=== PATIENT | male | born 1950 | race Caucasian/White ===

== ENCOUNTER → 2021-08-24 | Outpatient (REF) | payer SELFPAY ==
[2021-08-24 09:00] LABS: Absolute Neutrophil Count 2.8 X10^3/uL (2.0-7.7); Basophil# 0.05 X10^3/uL; Basophil% 1.1 % (0-1); Eosinophil# 0.19 X10^3/uL; Eosinophils% 4.1 % (0-5); Hematocrit 24.1 % (40-54); Hemoglobin 7.2 g/dL (13.0-16.5); Lymphocyte % 14.9 % (19-41); Mean Corp Hgb Conc 29.9 g/dL (32-36); Mean Corpuscular Hgb 29.4 pg (27.0-32.0); Mean Corpuscular Volume 98.4 fL (80-94); Mean Platelet Vol. 10.1 fl (6.2-12.0); Monocyte% 19.2 % (0-10); NRBC Flagged by Analyzer 0 % (0-5); Neutrophil # 2.83 X10^3/uL (2.7-7.7); Neutrophil % 60.3 % (47-70); POSITIVE MORPHOLOGY YES; Platelet Count 256 K/mm3 (150-450); RBC Distribution Width CV 18.1 % (11.6-14.6); RBC Distribution Width SD 65.3 fl (35.1-43.9); Red Blood Count 2.45 M/mm3 (4.6-6.2); White Blood Count 4.7 K/mm3 (4.4-11.0)
[2021-08-24 09:02] LABS: Differential Indicated SCAN CRITERIA MET
[2021-08-24 09:22] LABS: Anisocytosis RARE; Differential Comment SCANNED
[2021-08-24 09:41] LABS: Anion Gap 6 (5-15); BUN 25 mg/dL (7-18); BUN/Creat Ratio 12.5 RATIO (10-20); Calcium,Total 8.6 mg/dL (8.5-10.1); Chloride 98 mmol/L (98-107); EST Glomerular Filtration Rate 35 mL/min (>60); Est Glom Filt Rate - Afr Amer 43 mL/min (>60); Glucose 129 mg/dL (74-106); Potassium 3.7 mmol/L (3.5-5.1); Sodium Level 137 mmol/L (136-145)
== END | disposition home or self-care (01) ==
LOC: OLS.SW1020 05:33
PROVIDERS: Visit Provider Internal Medicine
DX: E11.9 Type 2 diabetes mellitus without complications (principal); D64.9 Anemia, unspecified
CPT/HCPCS: 36415; 80048; 85025

== ENCOUNTER 2021-08-28 23:49 | Inpatient (IN) | payer MEDICARE, SELFPAY ==
[2021-08-28 23:50] VITALS: BP 116/58; PULSE 105; RESP 31; TEMP 36.8; O2SAT 97; BMI 25.9
[2021-08-29] VITALS (45 sets, daily range): BP systolic 77–142; BP diastolic 46–73; PULSE 77–127; RESP 12–40; TEMP 35.8–37; O2SAT 89–100; BMI 24.5
--- NOTE | 2021-08-29 00:09 | EKG12_ITS ---
Test Reason : sob Blood Pressure : / mmHG Vent. Rate : 104 BPM Atrial Rate : 104 BPM P-R Int : 208 ms QRS Dur : 092 ms QT Int : 296 ms P-R-T Axes : 046 009 034 degrees QTc Int : 389 ms Sinus tachycardia Nonspecific T wave abnormality Abnormal ECG Confirmed by YOVANY ALVAREZ, MARIO ([id number]), editor index RADHAMES MARIE ([id number]) on 08/31/2021 9:06:13 AM Referred By: Confirmed By:MARIO PEDROZA MD
--- NOTE | 2021-08-29 00:13 | EX.ED.DYSGE1 ---
HPI History of Present Illness Chief Complaint: Shortness of Breath Informant: patient Onset/Context/Timing Onset: Days Context: Gradual Onset Current Severity: Moderate Maximum Severity: Moderate Narrative Narrative: Patient present secondary to increased shortness of breath over the past 2 days. He normally wears 4 L of oxygen at baseline. He does not know what his underlying condition is that requires him to wear oxygen. He missed his dialysis treatment on Monday secondary to diarrhea. He only had a partial treatment yesterday. He states he does make some urine but very little. [facility] Medical History Anemia Anxiety Chronic kidney disease Chronic respiratory failure Cirrhosis Depression Dialysis patient Gout Hx of gastroesophageal reflux (GERD) Liver cell carcinoma Paroxysmal A-fib Type 2 diabetes mellitus Home Medications Therapeutic M 1 tab NG DAILY supplement 08/29/21 [History Last Taken Unknown] albuterol sulfate 0.63 mg/3 mL solution for nebulization 0.63 mg inhalation Q4H PRN Shortness Of Breath 08/29/21 [History Last Taken Unknown] alendronate 70 mg tablet 70 mg PO QWEEK supplement 08/29/21 [History Last Taken Unknown] allopurinol 100 mg tablet 100 mg PO DAILY gout 08/29/21 [History Last Taken Unknown] amiodarone 200 mg tablet 200 mg PO DAILY heart rate 08/29/21 [History Last Taken Unknown] apixaban 5 mg tablet 5 mg PO BID blood thinner 08/29/21 [History Last Taken Unknown] aripiprazole 2 mg tablet 2 mg PO DAILY depression 08/29/21 [History Last Taken Unknown] cetirizine 10 mg tablet 10 mg PO DAILY allergies 08/29/21 [History Last Taken Unknown] cholecalciferol (vitamin D3) 25 mcg (1,000 unit) tablet 25 mcg PO DAILY supplement 08/29/21 [History Last Taken Unknown] darbepoetin ismael in polysorbat 60 mcg/mL in polysorbate injection 60 mcg subcut QWEEK renal failure 08/29/21 [History Last Taken Unknown] entecavir 0.5 mg tablet 0.5 mg PO QWEEK liver failure 08/29/21 [History Last Taken Unknown] lactulose 20 gram/30 mL oral solution 20 g PO BID liver failure 08/29/21 [History Last Taken Unknown] melatonin 3 mg tablet 3 mg PO QHS sleep 08/29/21 [History Last Taken Unknown] metoprolol succinate 25 mg tablet,extended release 24 hr 25 mg PO DAILY heart rate/blood pressure 08/29/21 [History Last Taken Unknown] midodrine 10 mg tablet mg low BP 08/29/21 [History Last Taken Unknown] oxycodone 5 mg capsule 5 mg PO Q6H PRN Pain 08/29/21 [History Last Taken Unknown] pantoprazole 40 mg tablet,delayed release 40 mg PO QHS protonix 08/29/21 [History Last Taken Unknown] sodium chloride 0.65 % nasal spray aerosol ([place] Nasal) 2 spray intranasal Q4H PRN Dry Nasal Passages 08/29/21 [History Last Taken Unknown] tacrolimus 1 mg capsule, immediate-release 1 mg PO Q12H liver failure 08/29/21 [History Last Taken Unknown] timolol maleate 0.5 % once daily eye drops 1 drp EACH EYE DAILY glaucoma 08/29/21 [History Last Taken Unknown] ursodiol 300 mg capsule 300 mg PO TID liver failure 08/29/21 [History Last Taken Unknown] vitamin E 268 mg (400 unit) capsule 268 mg PO DAILY supplement 08/29/21 [History Last Taken Unknown] Allergy/AdvReac Type Severity Reaction Status Date / Time hydrocodone Allergy PT UNSURE Verified 08/29/21 00:07 OF REACTION levofloxacin [From Levaquin] Allergy PT UNSURE Verified 08/29/21 00:07 OF REACTION prochlorperazine Allergy Hives Verified 08/29/21 00:07 [From Compazine] aspirin AdvReac Other Verified 08/29/21 00:07 codeine AdvReac Nausea Verified 08/29/21 00:07 ibuprofen AdvReac Other Verified 08/29/21 00:07 Family History (Updated 08/29/21 @ 02:[address] Nick Rinaldi MD) Other CVA (cerebral vascular accident) Surgical History Liver transplant recipient Social History (Updated 08/29/21 @ 02:[address] Nick Rinaldi MD) Smoking Status: Former smoker ROS ROS ED Constitutional Constitutional ED: Denies chills or fever(s) Eyes Eyes: Denies change in vision or discharge from eye(s) ENT ENT ED: Denies discharge from eye(s), rhinorrhea or sore throat Cardiovascular Cardiovascular: Denies chest pain or palpitations Respiratory/Chest Respiratory/Chest: Reports dyspnea Gastrointestinal Gastrointestinal: Denies abdominal pain, diarrhea, nausea or vomiting Musculoskeletal Musculoskeletal: Reports back pain; Denies extremity pain Integumentary Denies Abrasions or rash Neurologic Neurologic: Denies headache(s) Allergic/Immunologic Allergic/Immunologic ED: Denies lip swelling or urticaria EXAM Physical Exam Const Vital Signs: 08/28/21 23:50 08/29/21 00:18 08/29/21 00:27 Temperature 98.3 F 96.8 F L Temperature Source Oral Temporal Pulse Rate 105 H 104 H Respiratory Rate 31 H 29 H Respiratory Effort Short of Breath Respiratory Depth Shallow Respiratory Pattern Tachypnea Blood Pressure 116/58 L 104/57 L Blood Pressure Mean 77 72 Pulse Ox 97 94 Oxygen Delivery Method Nasal Cannula Nasal Cannula Bi-pap Oxygen Flow Rate (L/min) 6 6 Fraction of Inspired Oxygen (FIO2) 08/29/21 00:15 08/29/21 00:31 08/29/21 01:18 Temperature 96.9 F L Temperature Source Temporal Pulse Rate 106 H 111 H Respiratory Rate 26 H 25 H Respiratory Effort Respiratory Depth Respiratory Pattern Tachypnea Blood Pressure 99/57 L Blood Pressure Mean 71 Pulse Ox 96 93 Oxygen Delivery Method Bi-pap Oxygen Flow Rate (L/min) Fraction of Inspired Oxygen (FIO2) 40 40 08/29/21 01:48 08/29/21 02:00 08/29/21 02:00 Temperature 96.8 F L 96.9 F L Temperature Source Temporal Temporal Pulse Rate 127 H 105 H 105 H Respiratory Rate 30 H 28 H 28 H Respiratory Effort Respiratory Depth Respiratory Pattern Blood Pressure 110/56 L 110/56 L Blood Pressure Mean 74 74 Pulse Ox 96 100 100 Oxygen Delivery Method Bi-pap Room Air Oxygen Flow Rate (L/min) Fraction of Inspired Oxygen (FIO2) 40 Positive well nourished and well developed General Appearance ED: well developed HEENT Reports normocephalic and head/scalp atraumatic Eyes PERRL and EOMs intact bilaterally Neck supple Chest Wall inspection of chest normal and palpation of chest normal Resp Resp Narrative: Patient tachypneic with crackles bilaterally. Cardio regular rate and regular rhythm GI non-tender Palpation: soft Back/Spine Negative for no CVA tenderness Extremity Extremity Narrative: 3+ pitting edema bilateral lower extremities. Neuro oriented x3 and no sensory deficits noted Sensorium / Orientation: alert Motor Exam: Negative for strength 5/5 throughout Psych mental status grossly normal Skin no rashes or lesions noted MDM MDM MDM Narrative Medical decision making narrative: Patient was placed on BiPAP due to work of breathing. Chest x-ray, lab work obtained. Patient given 40 mg of IV Lasix. Lab Data Attestation: I reviewed the patient's lab results. Labs: Laboratory Results - last 24 hr 08/29/21 08/29/21 08/29/21 00:15 00:15 00:15 WBC 22.0 H RBC 2.90 L Hgb 8.6 L Hct 28.4 L MCV 97.9 H MCH 29.7 MCHC 30.3 L RDW Std Deviation 66.5 H RDW Coeff of Neetu 18.5 H Plt Count 396 MPV 10.2 Immature Gran % (Auto) 1.300 H Neut % (Auto) 87.5 H Lymph % (Auto) 2.3 L [place] % (Auto) 7.5 Eos % (Auto) 1.0 Baso % (Auto) 0.4 Absolute Neuts (auto) 19.3 H Absolute Lymphs (auto) 0.50 L Nucleated RBC % 0 Differential Comment SCANNED Diff Path Review May foll Hypochromasia 2+ Anisocytosis 1+ Sodium 132 L Potassium 3.3 L Chloride 94 L Carbon Dioxide 30.0 Anion Gap 8 BUN 54 H Creatinine 2.82 H Estim Creat Clear Calc 23.58 Est GFR (MDRD) Af Amer 29 L Est GFR (MDRD) Non-Af 24 L BUN/Creatinine Ratio 19.1 Glucose 170 H Calcium 9.3 B-Natriuretic Peptide 1099.8 H Radiography Chest X-Ray - ED: 1 View, Read by ED Physician and CHF Diagnostic Testing: Clinical Impression(s) from Imaging Studies Chest X-Ray 08/29/21 00:30 IMPRESSION: Bilateral airspace disease, concerning for multifocal infection. Small pleural effusions, right greater than left. Electronically Signed: Latrell Pina MD at 1:14 EDT , EKG Initial EKG: Attestation: I personally reviewed and interpreted this EKG as follows: Interpretation: Sinus Tachycardia (Sinus tachycardia at 104 with underlying artifact. No significant ischemia appreciated.) Treatment and Re-Evaluation Narrative: On repeat evaluation patient breathing much more comfortably. His FiO2 is at 40%. Lung sounds are improved on auscultation. Lab work does show elevated white count at 22 with 87% neutrophils. Hemoglobin is 8.6. Chemistry studies reveal a sodium of 132, potassium 3.3, BUN 54, creatinine 2.82. BNP is elevated at 1100. Clinically I do not believe the patient has pneumonia. He has missed dialysis and sounds wet on auscultation. I believe the elevated white count is a stress response from his dyspnea. Patient will require admission as he is currently on BiPAP. We will speak with hospitalist. Discharge Plan Dx/Rx/DC Orders Clinical Impression: CHF (congestive heart failure), Respiratory failure, Chronic kidney failure, Dependence on renal dialysis Disposition Disposition: Acute Care Hospital [facility] Discharge Date/Time: 08/29/21 03:37
--- NOTE | 2021-08-29 00:18 | NURSING ---
PICC in placed to right chest on arrival to ED
[2021-08-29 00:21] LABS: Absolute Neutrophil Count 19.3 X10^3/uL (2.0-7.7); Basophil# 0.09 X10^3/uL; Basophil% 0.4 % (0-1); Eosinophil# 0.22 X10^3/uL; Hematocrit 28.4 % (40-54); Hemoglobin 8.6 g/dL (13.0-16.5); Lymphocyte % 2.3 % (19-41); Mean Corp Hgb Conc 30.3 g/dL (32-36); Mean Corpuscular Hgb 29.7 pg (27.0-32.0); Mean Corpuscular Volume 97.9 fL (80-94); Mean Platelet Vol. 10.2 fl (6.2-12.0); Monocyte# 1.66 X10^3/uL; Monocyte% 7.5 % (0-10); NRBC Flagged by Analyzer 0 % (0-5); Neutrophil # 19.25 X10^3/uL (2.7-7.7); Neutrophil % 87.5 % (47-70); POSITIVE DIFFERENTIAL YES; POSITIVE MORPHOLOGY YES; Platelet Count 396 K/mm3 (150-450); RBC Distribution Width CV 18.5 % (11.6-14.6); RBC Distribution Width SD 66.5 fl (35.1-43.9)
[2021-08-29] MEDS: Furosemide 40 MG/4 ML Vial IV (00:23)
[2021-08-29 00:24] LABS: Differential Indicated SCAN CRITERIA MET
--- NOTE | 2021-08-29 00:30 | RAD_ITS ---
INDICATION: sob EXAMINATION/TECHNIQUE: X-RAY - XR Chest 1 View COMPARISON: None. FINDINGS: LINES/DEVICES: Right IJ central venous catheter terminating in the distal SVC. Enteric tube terminates below the diaphragm beyond the field of view. LUNGS: Bilateral hazy and patchy opacities worst at the right lung base. Small pleural effusions, right greater than left. No pneumothorax. MEDIASTINUM AND CARDIOVASCULAR STRUCTURES: Cardiac silhouette not enlarged. Central airways and mediastinal contour are unremarkable. BONES AND SOFT TISSUES: Unremarkable. RAD/Chest 1 View (Portable) IMPRESSION: Bilateral airspace disease, concerning for multifocal infection. Small pleural effusions, right greater than left. Electronically Signed: Latrell Pina MD at 1:14 EDT ,
[2021-08-29 00:38] LABS: Anion Gap 8 (5-15); BUN 54 mg/dL (7-18); BUN/Creat Ratio 19.1 RATIO (10-20); Calcium,Total 9.3 mg/dL (8.5-10.1); Chloride 94 mmol/L (98-107); Creatinine, Serum 2.82 mg/dL (0.70-1.30); EST Glomerular Filtration Rate 24 mL/min (>60); Est Glom Filt Rate - Afr Amer 29 mL/min (>60); Estimated Creatinine Clearance 23.58 ml/min; Glucose 170 mg/dL (74-106); Potassium 3.3 mmol/L (3.5-5.1); Sodium Level 132 mmol/L (136-145)
[2021-08-29 00:54] LABS: BNP,B-Type NATRIURETIC PEPTIDE 1099.8 pg/mL (0-100)
[2021-08-29 00:55] LABS: Anisocytosis 1+; Differential Comment SCANNED; Hypochromasia 2+
--- NOTE | 2021-08-29 02:33 | PCM.HP.STD ---
HPI - General General Date of Admission: 08/29/21 Date of Service: 08/29/21 Chief Complaint: Shortness of breath HPI Narrative MUSA LOPEZ, is a 71 M with a significant history of liver transplantation; end-stage renal disease on dialysis who presents emergency department with 2-day history of progressively worsening shortness of breath. Patient get dialysis Monday and Monday. The Monday before presentation patient missed dialysis because of diarrhea. And he had a partial treatment of dialysis the Monday before presentation. Associated with his symptoms is swelling of his legs [facility] Medical History Anemia Anxiety Chronic kidney disease Chronic respiratory failure Cirrhosis Depression Dialysis patient Gout Hx of gastroesophageal reflux (GERD) Liver cell carcinoma Paroxysmal A-fib Type 2 diabetes mellitus Home Medications Therapeutic M 1 tab NG DAILY supplement 08/29/21 [History Last Taken Unknown] albuterol sulfate 0.63 mg/3 mL solution for nebulization 0.63 mg inhalation Q4H PRN Shortness Of Breath 08/29/21 [History Last Taken Unknown] alendronate 70 mg tablet 70 mg PO QWEEK supplement 08/29/21 [History Last Taken Unknown] allopurinol 100 mg tablet 100 mg PO DAILY gout 08/29/21 [History Last Taken Unknown] amiodarone 200 mg tablet 200 mg PO DAILY heart rate 08/29/21 [History Last Taken Unknown] apixaban 5 mg tablet 5 mg PO BID blood thinner 08/29/21 [History Last Taken Unknown] aripiprazole 2 mg tablet 2 mg PO DAILY depression 08/29/21 [History Last Taken Unknown] cetirizine 10 mg tablet 10 mg PO DAILY allergies 08/29/21 [History Last Taken Unknown] cholecalciferol (vitamin D3) 25 mcg (1,000 unit) tablet 25 mcg PO DAILY supplement 08/29/21 [History Last Taken Unknown] darbepoetin ismael in polysorbat 60 mcg/mL in polysorbate injection 60 mcg subcut QWEEK renal failure 08/29/21 [History Last Taken Unknown] entecavir 0.5 mg tablet 0.5 mg PO QWEEK liver failure 08/29/21 [History Last Taken Unknown] lactulose 20 gram/30 mL oral solution 20 g PO BID liver failure 08/29/21 [History Last Taken Unknown] melatonin 3 mg tablet 3 mg PO QHS sleep 08/29/21 [History Last Taken Unknown] metoprolol succinate 25 mg tablet,extended release 24 hr 25 mg PO DAILY heart rate/blood pressure 08/29/21 [History Last Taken Unknown] midodrine 10 mg tablet mg low BP 08/29/21 [History Last Taken Unknown] oxycodone 5 mg capsule 5 mg PO Q6H PRN Pain 08/29/21 [History Last Taken Unknown] pantoprazole 40 mg tablet,delayed release 40 mg PO QHS protonix 08/29/21 [History Last Taken Unknown] sodium chloride 0.65 % nasal spray aerosol ([place] Nasal) 2 spray intranasal Q4H PRN Dry Nasal Passages 08/29/21 [History Last Taken Unknown] tacrolimus 1 mg capsule, immediate-release 1 mg PO Q12H liver failure 08/29/21 [History Last Taken Unknown] timolol maleate 0.5 % once daily eye drops 1 drp EACH EYE DAILY glaucoma 08/29/21 [History Last Taken Unknown] ursodiol 300 mg capsule 300 mg PO TID liver failure 08/29/21 [History Last Taken Unknown] vitamin E 268 mg (400 unit) capsule 268 mg PO DAILY supplement 08/29/21 [History Last Taken Unknown] Allergy/AdvReac Type Severity Reaction Status Date / Time hydrocodone Allergy PT UNSURE Verified 08/29/21 00:07 OF REACTION levofloxacin [From Levaquin] Allergy PT UNSURE Verified 08/29/21 00:07 OF REACTION prochlorperazine Allergy Hives Verified 08/29/21 00:07 [From Compazine] aspirin AdvReac Other Verified 08/29/21 00:07 codeine AdvReac Nausea Verified 08/29/21 00:07 ibuprofen AdvReac Other Verified 08/29/21 00:07 Family History (Updated 08/29/21 @ 02:[address] Nick Rinaldi MD) Other CVA (cerebral vascular accident) Surgical History Liver transplant recipient Social History (Updated 08/29/21 @ 02:[address] Nick Rinaldi MD) Smoking Status: Former smoker ROS ROS Narrative Pertinent positives and pertinent negatives as noted in HPI. All other systems were reviewed and are negative. Review of Systems ROS Unobtainable: other Details: Patient was on BiPAP at the time of examination and complete review of system could not be obtained secondary to patient being on BiPAP. Vital Signs Vital Signs Vital Signs: 08/28/21 23:50 08/29/21 00:18 08/29/21 00:27 Temperature 98.3 F 96.8 F L Temperature Source Oral Temporal Pulse Rate 105 H 104 H Respiratory Rate 31 H 29 H Respiratory Effort Short of Breath Respiratory Depth Shallow Respiratory Pattern Tachypnea Blood Pressure 116/58 L 104/57 L Blood Pressure Mean 77 72 Pulse Ox 97 94 Oxygen Delivery Method Nasal Cannula Nasal Cannula Bi-pap Oxygen Flow Rate (L/min) 6 6 Fraction of Inspired Oxygen (FIO2) 08/29/21 00:15 08/29/21 00:31 08/29/21 01:18 Temperature 96.9 F L Temperature Source Temporal Pulse Rate 106 H 111 H Respiratory Rate 26 H 25 H Respiratory Effort Respiratory Depth Respiratory Pattern Tachypnea Blood Pressure 99/57 L Blood Pressure Mean 71 Pulse Ox 96 93 Oxygen Delivery Method Bi-pap Oxygen Flow Rate (L/min) Fraction of Inspired Oxygen (FIO2) 40 40 08/29/21 01:48 Temperature Temperature Source Pulse Rate 127 H Respiratory Rate 30 H Respiratory Effort Respiratory Depth Respiratory Pattern Blood Pressure Blood Pressure Mean Pulse Ox 96 Oxygen Delivery Method Oxygen Flow Rate (L/min) Fraction of Inspired Oxygen (FIO2) 40 Weight Weight: 77.2 kg Body Mass Index (BMI) 25.9 Physical Exam Narrative Physical exam: General: Cachectic. Head: Normocephalic, atraumatic, no tenderness Eyes: Vision is grossly intact. EOMI ENT: Peg tube in nostrils. No trauma, moist mucous membranes, no rhinorrhea Neck: Nontender, full range of motion, no spinal tenderness, deformities, step-off CVS: Tachycardia. S1-S2 present. No murmur, gallop or rub. Respiratory : Rales throughout chest wall nontender, no wheezing Abdomen: Soft, nontender, nondistended, normal bowel sounds, no masses : Deferred Back: Nontender, no CVA tenderness, no midline spinal tenderness, deformities, step-offs Extremities: Edema of left upper extremity. Edema bilateral lower legs. Skin: Normal color, no trauma, abrasions Neuro: Alert, oriented, cranial nerves II through XII grossly intact. Psychiatry: Normal mood. Normal affect. Not depressed. Not anxious. Results Lab / Micro Data Result Diagrams: 08/29/21 05:05 08/29/21 05:05 Labs: Laboratory Results - last 24 hr 08/29/21 00:15: WBC 22.0 H, RBC 2.90 L, Hgb 8.6 L, Hct 28.4 L, MCV 97.9 H, MCH 29.7, MCHC 30.3 L, RDW Std Deviation 66.5 H, RDW Coeff of Neetu 18.5 H, Plt Count 396, MPV 10.2, Immature Gran % (Auto) 1.300 H, Neut % (Auto) 87.5 H, Lymph % (Auto) 2.3 L, [place] % (Auto) 7.5, Eos % (Auto) 1.0, Baso % (Auto) 0.4, Absolute Neuts (auto) 19.3 H, Absolute Lymphs (auto) 0.50 L, Nucleated RBC % 0, Differential Comment SCANNED, Diff Path Review May foll, Hypochromasia 2+, Anisocytosis 1+ 08/29/21 00:15: Sodium 132 L, Potassium 3.3 L, Chloride 94 L, Carbon Dioxide 30.0, Anion Gap 8, BUN 54 H, Creatinine 2.82 H, Estim Creat Clear Calc 23.58, Est GFR (MDRD) Af Amer 29 L, Est GFR (MDRD) Non-Af 24 L, BUN/Creatinine Ratio 19.1, Glucose 170 H, Calcium 9.3 08/29/21 00:15: B-Natriuretic Peptide 1099.8 H Radiology Impression Chest X-Ray 08/29/21 00:30 IMPRESSION: Bilateral airspace disease, concerning for multifocal infection. Small pleural effusions, right greater than left. Electronically Signed: Latrell Pina MD at 1:14 EDT , Assessment & Plan Assessment/Plan (1) Fluid overload: PLAN: Plan Fluid overload. Unclear whether patient has CHF. Unlikely fluid overload from missing dialysis. Chest x-ray visualized showed multifocal opacities. Fluid restriction. On BiPAP at emergency department and continued. N.p.o. while on BiPAP. Matteo wrap to bilateral legs elevate bilateral legs. We will get an echocardiogram. Nephrology consult Leukocytosis White count of 22.0. Likely reactive. Trend. DVT prophylaxis Subcutaneous heparin ordered. Charges/Coding Visit Charges Inpatient E&M: 24841 Init Hosp L3
--- NOTE | 2021-08-29 04:02 | ECHOD_ITS ---
Reason For Study: SOB Procedure This was a 2D Doppler, Color Flow transthoracic echocardiogram. Exam performed portable in ICU/CCU. Left Ventricle Normal LV size. Moderate eccentric left ventricular hypertrophy. Left ventricular systolic function is normal. The estimated ejection fraction is 60 %. No regional wall motion abnormalities noted. Right Ventricle Normal RV size. Normal systolic function. Atria Normal left atrium. Normal right atrium. Mitral Valve Bileaflet diffuse mitral valve thickening. Mild (1+) eccentric mitral valve insufficiency. Tricuspid Valve Normal tricuspid valve. Mild (1+) tricuspid valve insufficiency. Pulmonary artery systolic pressure is 38 mmHg. Aortic Valve Trisinus/trileaflet aortic valve. Mild focal aortic valve calcification. Pulmonic Valve Normal pulmonic valve. Great Vessels Normal aortic root. The pulmonary artery is normal size. Inferior vena cava collapse with respiration. Pericardium/Pleural No pericardial effusion. MMode/2D Measurements & Calculations LVIDd: 4.7 cm IVSd: 1.5 cm Ao root diam: 3.4 cm LVIDs: 2.4 cm LVPWd: 0.86 cm RVDd: 3.7 cm FS: 49.1 % LAV(MOD-bp): 52.0 ml LA A4 area: 16.5 cm2 LA dimension(2D): 4.2 cm LAV(MOD-bp) Indexed: 27.2 ml/m2 LAV(MOD-sp2): 64.9 ml LAV(MOD-sp4): 34.6 ml RA A4 area: 15.2 cm2 Doppler Measurements & Calculations MV E max kristina: 105.7 cm/sec Ao V2 max: 186.2 cm/sec LV V1 max: 134.7 cm/sec Ao max P.1 mmHg LV V1 max P.3 mmHg Ao V2 mean: 121.5 cm/sec LV V1 mean P.8 mmHg Ao mean P.9 mmHg LV V1 mean: 91.3 cm/sec Ao V2 VTI: 29.5 cm LV V1 VTI: 22.4 cm PA V2 max: 117.3 cm/sec TR max kristina: 293.7 cm/sec TR max P.6 mmHg ECHO/Echo Complete Interpretation Summary Normal LV size. Left ventricular systolic function is normal. Moderate eccentric left ventricular hypertrophy. The estimated ejection fraction is 60 %. Mild (1+) eccentric mitral valve insufficiency. Pulmonary artery systolic pressure is 38 mmHg. Ordering Physician: Nick Rinaldi Referring Physician: Sb Umaña Performed By: Nadja Shirley RDCS
[2021-08-29 05:40] LABS: Absolute Lymphocyte Count 0.82 X10^3/uL (0.83-4.51); Absolute Neutrophil Count 16.8 X10^3/uL (2.0-7.7); Basophil# 0.06 X10^3/uL; Basophil% 0.3 % (0-1); Eosinophil# 0.07 X10^3/uL; Eosinophils% 0.4 % (0-5); Hemoglobin 8.9 g/dL (13.0-16.5); Lymphocyte # 0.82 X10^3/ul (0.83-4.51); Lymphocyte % 4.3 % (19-41); Mean Corp Hgb Conc 30.7 g/dL (32-36); Mean Corpuscular Hgb 30.1 pg (27.0-32.0); Mean Platelet Vol. 10.3 fl (6.2-12.0); Monocyte# 1.19 X10^3/uL; Monocyte% 6.2 % (0-10); NRBC Flagged by Analyzer 0 % (0-5); Neutrophil # 16.78 X10^3/uL (2.7-7.7); Neutrophil % 87.5 % (47-70); POSITIVE MORPHOLOGY YES; Platelet Count 359 K/mm3 (150-450); RBC Distribution Width CV 18.5 % (11.6-14.6); RBC Distribution Width SD 65.9 fl (35.1-43.9); Red Blood Count 2.96 M/mm3 (4.6-6.2); White Blood Count 19.2 K/mm3 (4.4-11.0)
[2021-08-29 05:59] LABS: Differential Indicated SCAN CRITERIA MET
[2021-08-29 06:05] LABS: Anion Gap 10 (5-15); BUN 53 mg/dL (7-18); BUN/Creat Ratio 17.9 RATIO (10-20); Calcium,Total 9.3 mg/dL (8.5-10.1); Chloride 93 mmol/L (98-107); Creatinine, Serum 2.96 mg/dL (0.70-1.30); EST Glomerular Filtration Rate 22 mL/min (>60); Est Glom Filt Rate - Afr Amer 27 mL/min (>60); Estimated Creatinine Clearance 22.47 ml/min; Glucose 126 mg/dL (74-106); Potassium 3.5 mmol/L (3.5-5.1); Sodium Level 133 mmol/L (136-145)
[2021-08-29] MEDS: CLARIFY ORDER NOTE (06:14)
[2021-08-29 06:27] LABS: Anisocytosis 1+; Hypochromasia 2+; Microcytosis 1+
[2021-08-29 06:28] LABS: Differential Comment SCANNED
--- NOTE | 2021-08-29 07:07 | NURSING ---
Contacted Jarrod at [facility] to clarify Fosamax and Aranesp Fosamax is 1x weekly on Fridays Aranesp is 1x weekly on Wednesdays Pharmacy updated home med list updated
--- NOTE | 2021-08-29 07:44 | PCM.PN.BLA ---
Progress Note Presenting with fluid overload likely secondary to missing dialysis on Monday due to diarrhea as well as having a short run on Monday. Currently on BiPAP and will consult nephrology for dialysis today. Lung sounds demonstrate rales consistent with volume overload. He also has findings consistent for multifocal pneumonia especially in the setting of an elevated white count to 22 on admission therefore also start him on antibiotics and obtain a sputum culture.
[2021-08-29 08:10] LABS: Allen Test Positive; Base Excess 1 mmol/L (-2 to +2); Bicarbonate 27.3 mmol/L (22-26); Blood Gas Specimen Type ART; FI02 50; O2 Delivery Device BiPAP; PEEP 7; PO2 58 mmHG (75-100); SITE R Radial; SO2 87 % (95-99); Total Carbon Dioxide 29 mmol/L; pCO2 52.8 mmHg (35-45); pH 7.32 (7.35-7.45)
--- NOTE | 2021-08-29 08:30 | NURSING ---
Report called to Donn MONSALVE. Transferring patient to ICU bed 7.
--- NOTE | 2021-08-29 09:12 | VDLE_ITS ---
Reason For Study: swelling RIGHT LEFT GSV is normal. GSV is normal. CFV is compressible, spontaneous, phasic, CFV is compressible, spontaneous, phasic, competent and demonstrates normal competent, and demonstrates normal augmentation. augmentation. FV is compressible, spontaneous, phasic, FV is compressible, spontaneous, phasic, competent and demonstrates normal competent and demonstrates normal augmentation. augmentation. POP V is compressible, spontaneous, phasic, POP V is compressible, spontaneous, phasic, competent and demonstrates normal competent and demonstrates normal augmentation. augmentation. T/P Trunk is compressible. T/P Trunk is compressible. PTV is compressible. PTV is compressible. RT PerV is compressible. LT PerV is compressible. Procedure This is a venous duplex using B-mode, color flow and spectral Doppler. Exam performed portable in ICU/CCU. The exam was diagnostic. Difficult study due to edema. A preliminary report was called and/or faxed to the pt's RN. VL/Venous Duplex US - Marcel Extrem Interpretation Summary Deep veins of the right lower extremity are patent and compressible segmentally . There is no evidence of right lower extremity deep vein thrombosis. The right great sapheno us vein appears patent and compressible segmentally. Deep veins of the left lower extremity are patent and compressible segmentally. There is no evidence of left lower extremity deep vein thrombosis. The left great saphenous vein paras ears patent and compressible segmentally. Ordering Physician: Kanu Chan Performed By: Myke Monahan RVT
--- NOTE | 2021-08-29 09:12 | AAVD_ITS ---
Reason For Study: edema Aorta Measurements Aorta Doppler Measurements Proximal aorta measures1.32 x 1.22cm. in cross- Peak systolic flow velocities within the proximal sectional axis. aorta measure 32.5 cm/sec. Proximal aorta measures1.35cm. in longitudinal Peak systolic flow velocities within the mid aorta axis. measure 38.1 cm/sec. Mid aorta measures1.36 x 1.48cm. in cross- Peak systolic flow velocities within the distal sectional axis. aorta measure 28.2 cm/sec. Mid aorta measures1.45cm. in longitudinal axis. Distal aorta measures1.39 x 1.16cm. in cross- sectional axis. Distal aorta measures1.26cm. in longitudinal axis. Left Iliac Artery Left iliac artery measures .87 x .71 cm. in the cross-sectional axis. Left iliac artery measures .72 cm. in the longitudinal axis. Peak systolic velocity in the left iliac artery measures 117.6 cm/sec. Right Iliac Artery Right iliac artery measures .77 x .74 cm. in the cross-sectional axis. Right iliac artery measures .81 cm. in the longitudinal axis. Peak systolic velocity in the right iliac artery measures 126.4 cm/sec. Procedure Aorta IVC Iliac vasculature or bypass grafts [id number]. The exam was diagnostic. Exam performed portable in ICU/CCU. Difficult study due to edema. VL/Abd Aortic/IVC Duplex scan Interpretation Summary Abdominal aorta patent, normal caliber with normal velocities Bilateral iliac arteries patent, normal caliber with normal velocities Ordering Physician: Kanu Chan Performed By: Myke Monahan RVT
--- NOTE | 2021-08-29 09:12 | VDUE_ITS ---
Reason For Study: swelling Left Proximal Left jugular vein is spontaneous, widely patent, phasic, with no intraluminal echogenicity noted. Left subclavian vein is spontaneous, widely patent, phasic, with no intraluminal echogenicity noted. Left Arm Left axillary vein is spontaneous, patent, phasic, competent, compressible and demonstrates augmentation. Left brachial vein is compressible. Left cephalic vein is compressible. Left basilic vein is compressible. Left Lower Arm Left radial vein is compressible. Left ulnar vein is compressible. Prelim to the pt's RN. VL/Venous Duplex US, Unilateral Interpretation Summary Deep veins of the left upper extremity are patent and compressible segmentally. There is no evidence of deep vein thrombosis. There is no evidence of left upper extremity deep vein thrombosis. Ordering Physician: Kanu Chan Performed By: Myke Monahan RVT ?
--- NOTE | 2021-08-29 09:17 | AVDS_ITS ---
Reason For Study: evaluate fistula LEFT [place] artery 331.6/65.1 cm/s. Vol flow 1920 ml/min. Prox Anast 433.3/125.6 cm/s. Vol flow 4855 ml/min. Prox Fistula 120.8/30.1 cm/s. Vol flow 2511 ml/min. Mid fistula 31.9/8.4 cm/s. Vol flow 3321 ml/min. Dist fistula 42.4/27.6 cm/s. Vol flow 584.4 ml/min. Outflow 56.4/36.3 cm/s. Vol flow 7333.3 ml/min. VL/AV Fistula/Dialysis Graft Scan Interpretation Summary Patent left brachio-cephalic fistula with normal velocities and satisfactory fl ow volumes. Mid segment of fistula enlarged to 28 mm Ordering Physician: Kanu Chan Performed By: Myke Monahan RVT
--- NOTE | 2021-08-29 09:42 | CON.PCM.CC_ITS ---
Assessment & Plan Assessment/Plan (1) CHF (congestive heart failure): (2) Fluid overload: (3) Respiratory failure: (4) History of liver transplant: PLAN: On tacrolimus, Entecavir PLAN: Plan RECOMMENDATIONS: 1. Vascular work-up as ordered 2. Dialysis with fluid removal if possible 3. Agree with empiric antibiotics pending cultures 4. Possible need for dialysis line versus vascular interventions 5. BiPAP breaks as tolerated. Continue BiPAP with sleep 6. Continue immunosuppression 7. Obtain echocardiogram IMPRESSIONS: 1. Acute on chronic hypoxic respiratory failure secondary to probable CHF Patient with a history of end-stage renal disease with poor dialysis for the last week. Clinical suspicion for fluid overload leading to current condition. Unclear if patient has a concomitant infectious etiology, but is on immunosuppression. Agree with antibiotics for now. Will attempt hemodialysis. If not successful, may need to have a temporary hemodialysis line placed. Would continue with BiPAP with sleep until significant volume is removed. Could attempt BiPAP breaks while awake following 1 hemodialysis session. Nephrology has been consulted. 2. End-stage renal disease Patient does have a thrill in the fistula of interest. Unclear if patient has other vascular abnormalities leading to complications. Vascular surgery will be consulted. Work-up has been initiated for areas of edema. We will hold on systemic anticoagulation for now. If dialysis is unsuccessful, may need to have a temporary dialysis line placed while work-up and interventions can be completed 3. Congestive heart failure Unclear baseline cardiac function. Records can be requested. We will obtain an echocardiogram for comparison. Patient likely has an element of diastolic dysfunction at a minimum. Diuretics are of marginal effects given problem #2. High clinical suspicion for concomitant peripheral vascular disease. 4. History of liver transplant/gallop/paroxysmal A. fib/diabetes mellitus/anemia/anxiety Complicates care, management, recovery and prognosis. Continue immunosuppression. Patient may need sliding scale insulin. Patient appears to be tolerating BiPAP well at this time. Would not recommend benzodiazepines as this could worsen respiratory failure. TIME: 37 minutes critical care time spent addressing patient's acute hypoxic respiratory failure, end-stage renal disease, CHF, review of all data and collaboration with care team HPI Consult Data Date of Consult: 08/29/21 HPI Narrative Reason for Consultation: Respiratory failure HPI Narrative: MUSA LOPEZ is a 71 M, with past medical history listed below, who presents to [facility] on 08/29/2021 secondary progressive shortness of breath over the previous 2 days. Patient reportedly is on 4 L nasal cannula at baseline and [facility]. Patient reportedly had missed dialysis on Monday secondary to diarrhea and had only a partial dialysis on Monday secondary to access issues. Patient reportedly had stated significant worsening in edema over this course of time. Patient reportedly was hospitalized a week ago at [facility]. In the ER, patient was afebrile, but tachycardic at 105 bpm. Patient was requiring 6 L/min to maintain saturations initially, but then was transitioned to BiPAP. Laboratory data showed a white blood cell count of 22, hemoglobin of 8.6 and platelets of 396. Potassium was slightly low at 3.3 and creatinine was elevated at 2.82. BNP was elevated at almost 1100. Chest x-ray showed bilateral airspace disease with right greater than left effusion and fluffy infiltrates. Patient was admitted to the floor on BiPAP therapy, but subse quently had to come to the intensive care unit secondary to progressive hypoxia. An ABG was obtained showing adequate ventilation, but increased AA gradient. Since being in the intensive care unit, pressures have been increased. Patient is now up to 60% FiO2 and saturations have been doing okay. Patient states the pressure is difficult, but overall feels it is tolerable. Patient states he has been on dialysis since 2016. Patient is not reporting any history of previous issues with this fistula. Patient does report that he would be intubated if necessary. Patient does have a history of a liver transplant, but reports he has been compliant with therapy. 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 Patient is not aware of any recent fever, chills, nausea or vomiting. Patient has had diarrhea recently but denied any melena or hematochezia. Somewhat limited secondary to BiPAP, but review of systems otherwise negative from a constitutional, HEENT, respiratory, cardiovascular, GI, genitourinary, musculoskeletal, skin, neurologic, psychiatric and hematologic system unless stated above. [facility] Medical History Anemia Anxiety Chronic kidney disease Chronic respiratory failure Cirrhosis Depression Dialysis patient Gout Hx of gastroesophageal reflux (GERD) Liver cell carcinoma Paroxysmal A-fib Type 2 diabetes mellitus Home Medications Therapeutic M 1 tab NG DAILY supplement 08/29/21 [History Last Taken Unknown] albuterol sulfate 0.63 mg/3 mL solution for nebulization 0.63 mg inhalation Q4H PRN Shortness Of Breath 08/29/21 [History Last Taken Unknown] alendronate 70 mg tablet 70 mg PO QWEEK supplement 08/29/21 [History Last Taken Unknown] allopurinol 100 mg tablet 100 mg PO DAILY gout 08/29/21 [History Last Taken Unk nown] amiodarone 200 mg tablet 200 mg PO DAILY heart rate 08/29/21 [History Last Taken Unknown] apixaban 5 mg tablet 5 mg PO BID blood thinner 08/29/21 [History Last Taken Unknown] aripiprazole 2 mg tablet 2 mg PO DAILY depression 08/29/21 [History Last Taken Unknown] cetirizine 10 mg tablet 10 mg PO DAILY allergies 08/29/21 [History Last Taken Unknown] cholecalciferol (vitamin D3) 25 mcg (1,000 unit) tablet 25 mcg PO DAILY supplement 08/29/21 [History Last Taken Unknown] darbepoetin ismael in polysorbat 60 mcg/mL in polysorbate injection 60 mcg subcut QWEEK renal failure 08/29/21 [History Last Taken Unknown] entecavir 0.5 mg tablet 0.5 mg PO QWEEK liver failure 08/29/21 [History Last Taken Unknown] lactulose 20 gram/30 mL oral solution 20 g PO BID liver failure 08/29/21 [History Last Taken Unknown] melatonin 3 mg tablet 3 mg PO QHS sleep 08/29/21 [History Last Taken Unknown] metoprolol succinate 25 mg tablet,extended release 24 hr 25 mg PO DAILY heart rate/blood pressure 08/29/21 [History Last Taken Unknown] midodrine 10 mg tablet mg low BP 08/29/21 [History Last Taken Unknown] oxycodone 5 mg capsule 5 mg PO Q6H PRN Pain 08/29/21 [History Last Taken Unknown] pantoprazole 40 mg tablet,delayed release 40 mg PO QHS protonix 08/29/21 [History Last Taken Unknown] sodium chloride 0.65 % nasal spray aerosol ([place] Nasal) 2 spray intranasal Q4H PRN Dry Nasal Passages 08/29/21 [History Last Taken Unknown] tacrolimus 1 mg capsule, immediate-release 1 mg PO Q12H liver failure 08/29/21 [History Last Taken Unknown] timolol maleate 0.5 % once daily eye drops 1 drp EACH EYE DAILY glaucoma 08/29/21 [History Last Taken Unknown] ursodiol 300 mg capsule 300 mg PO TID liver failure 08/29/21 [History Last Taken Unknown] vitamin E 268 mg (400 unit) capsule 268 mg PO DAILY supplement 08/29/21 [History Last Taken Unknown] Allergy/AdvReac Type Severity Reaction Status Date / Time hydrocodone Allergy PT UNSURE Verified 08/29/21 00:07 OF REACTION levofloxacin [From Levaquin] Allergy PT UNSURE Verified 08/29/21 00:07 OF REACTION prochlorperazine Allergy Hives Verified 08/29/21 00:07 [From Compazine] aspirin AdvReac Other Verified 08/29/21 00:07 codeine AdvReac Nausea Verified 08/29/21 00:07 ibuprofen AdvReac Other Verified 08/29/21 00:07 Family History Other CVA (cerebral vascular accident) Surgical History Liver transplant recipient Social History Smoking Status: Former smoker ROS ROS Narrative See HPI Physical Exam Const alert and oriented x3 Constitutional Narrative: Able to converse through BiPAP. Significant anasarca noted of the left upper, bilateral lower and thorax. HEENT normocephalic and head/scalp atraumatic HEENT Narrative: NG in place Eyes PERRL, EOMs intact bilaterally, conjunctivae normal and no scleral icterus Neck full ROM and no lymphadenopathy Resp Auscultation: rales and diminished lung sounds; Negative for rhonchi or wheezes Percussion: dullness Mid: right and Lower: right Cardio regular rhythm, S1 normal heart sound, S2 normal heart sound, no murmurs, no rub and no gallops Rate: tachycardic GI Inspection: abdominal distention Palpation: Negative for tender, guarding or rigid Extremity Extremity Narrative: Positive thrill General Extremity: edema Skin Skin Narrative: Dermal atrophy Neuro oriented x3, CN's II-XII intact bilaterally and moves all extremities Psych cooperative and affect normal Medical Records Data Attestation: I reviewed the patient's medical records Medical records narrative: Approximately 10 pages of documentation were reviewed from the [facility]. No documentation from [facility] is available for review. Patient is on chronic immunosuppression and appears to have been receiving it. I did contact Dr. Zarate with vascular surgery for recommendations on work-up for edema issues. Lab / Micro Data Attestation: I reviewed the patient's lab results. Result Diagrams: 08/29/21 05:05 08/29/21 05:05 Labs: Laboratory Results - last 24 hr 08/29/21 00:15: WBC 22.0 H, RBC 2.90 L, Hgb 8.6 L, Hct 28.4 L, MCV 97.9 H, MCH 29.7, MCHC 30.3 L, RDW Std Deviation 66.5 H, RDW Coeff of Neetu 18.5 H, Plt Count 396, MPV 10.2, Immature Gran % (Auto) 1.300 H, Neut % (Auto) 87.5 H, Lymph % (Auto) 2.3 L, [place] % (Auto) 7.5, Eos % (Auto) 1.0, Baso % (Auto) 0.4, Absolute Neuts (auto) 19.3 H, Absolute Lymphs (auto) 0.50 L, Nucleated RBC % 0, Differential Comment SCANNED, Diff Path Review May foll, Hypochromasia 2+, Anisocytosis 1+ 08/29/21 00:15: Sodium 132 L, Potassium 3.3 L, Chloride 94 L, Carbon Dioxide 30.0, Anion Gap 8, BUN 54 H, Creatinine 2.82 H, Estim Creat Clear Calc 23.58, Est GFR (MDRD) Af Amer 29 L, Est GFR (MDRD) Non-Af 24 L, BUN/Creatinine Ratio 19.1, Glucose 170 H, Calcium 9.3 08/29/21 00:15: B-Natriuretic Peptide 1099.8 H 08/29/21 05:05: WBC 19.2 H, RBC 2.96 L, Hgb 8.9 L, Hct 29.0 L, MCV 98.0 H, MCH 30.1, MCHC 30.7 L, RDW Std Deviation 65.9 H, RDW Coeff of [place]etu 18.5 H, Plt Count 359, MPV 10.3, Immature Gran % (Auto) 1.300 H, Neut % (Auto) 87.5 H, Lymph % (Auto) 4.3 L, [place] % (Auto) 6.2, Eos % (Auto) 0.4, Baso % (Auto) 0.3, Absolute Neuts (auto) 16.8 H, Absolute Lymphs (auto) 0.82 L, Nucleated RBC % 0, Differential Comment SCANNED, Hypochromasia 2+, Anisocytosis 1+, Microcytosis 1+ 08/29/21 05:05: Sodium 133 L, Potassium 3.5, Chloride 93 L, Carbon Dioxide 30.0, Anion Gap 10, BUN 53 H, Creatinine 2.96 H, Estim Creat Clear Calc 22.47, Est GFR (MDRD) Af Amer 27 L, Est GFR (MDRD) Non-Af 22 L, BUN/Creatinine Ratio 17.9, Glucose 126 H, Calcium 9.3 ABG Data ABG results: ABG 08/29/21 08:04 Specimen Type ART Sample Site R Radial pH 7.32 L Bicarbonate Actual 27.3 H Total CO2 29 Base Excess 1 O2 Saturation 87 L O2 % 50 ABG pCO2 52.8 H ABG pO2 58 L Rodrigo Test Positive O2 Delivery Device BiPAP POC PEEP 7 Attestation: I personally reviewed and interpreted this ABG as follows: (Pa rtially compensated respiratory acidosis with increased AA gradient) Rhythm Strip Rhythm Strip: Sinus Tach Rate: 104 Radiology Impression Chest X-Ray 08/29/21 00:30 IMPRESSION: Bilateral airspace disease, concerning for multifocal infection. Small pleural effusions, right greater than left. Electronically Signed: Latrell Pina MD at 1:14 EDT , Charges/Coding Procedures Hospitalists Procedures: [id number] Critial Care 1st Hr
[2021-08-29] MEDS: Ceftriaxone 1 GM/50 ML BAG IV (09:52)
[2021-08-29] MEDS: oxyCODONE 5 MG Tablet PO ×2 (12:17→21:46)
[2021-08-29] MEDS: Allopurinol 100 MG Tablet PO (16:41)
[2021-08-29] MEDS: Cholecalciferol (VIT D3) 25 MCG TABLET (1,000 UNITS) PO (16:41)
[2021-08-29] MEDS: Tacrolimus Anhydrous 1 MG Capsule PO ×2 (16:41→21:27)
[2021-08-29] MEDS: APIXABAN 5 MG TABLET PO ×2 (16:41→21:27)
[2021-08-29] MEDS: Ursodiol 250 MG Tablet PO (16:41)
[2021-08-29] MEDS: Loratadine 10 MG Tablet PO (16:41)
[2021-08-29] MEDS: ARIPiprazole 2 MG Tablet PO (16:42)
[2021-08-29] MEDS: Timolol 0.5% 5ML OPTH.BTL 1 DRP EACH EYE (16:43)
--- NOTE | 2021-08-29 16:48 | PCM.CONS.R ---
Assessment & Plan Assessment/Plan (1) CHF (congestive heart failure): (2) Dependence on renal dialysis: PLAN: ESRD on dialysis. As per records from [facility], etiology was tacrolimus nephrotoxicity. Currently has AV fistula. Apparently had issues with AV fistula at the skilled nursing. Seen on dialysis today. Since potassium levels are okay, plan for ultrafiltration only. We will be able to get out about 3 to 4 L. Blood pressure is borderline, systolic is low, diastolic is okay. On review of records from [facility], it seems this is a chronic problem. Received albumin with dialysis today for blood pressure support. HPI Consult Data Date of Consult: 08/29/21 HPI Narrative Reason for Consultation: ESRD HPI Narrative: MUSA LOPEZ, is a 71 M who presents to the hospital with complaints of shortness of breath. Nephrology consulted for ESRD. He was recently discharged from [facility]. Reviewed discharge summary. History of orthotopic liver transplant in 2010, hepatitis C, failed previous treatments, not sure if this was recently treated History of hepatitis B on Entecavir Admitted with COVID, diagnosed with long COVID, received steroids, convalescent plasma other medications. Retroperitoneal abscess, diagnosed on MRI, culture grew 3 different organisms, finished antibiotics S/p liver biopsy History of immunosuppression due to liver transplant Admitted to the hospital with shortness of breath. Found to have pulmonary edema on chest x-ray. Seen on dialysis today [facility] Medical History Anemia Anxiety Chronic kidney disease Chronic respiratory failure Cirrhosis Depression Dialysis patient Gout Hx of gastroesophageal reflux (GERD) Liver cell carcinoma Paroxysmal A-fib Type 2 diabetes mellitus Home Medications Therapeutic M 1 tab NG DAILY supplement 08/29/21 [History Last Taken Unknown] albuterol sulfate 0.63 mg/3 mL solution for nebulization 0.63 mg inhalation Q4H PRN Shortness Of Breath 08/29/21 [History Last Taken Unknown] alendronate 70 mg tablet 70 mg PO QWEEK supplement 08/29/21 [History Last Taken Unknown] allopurinol 100 mg tablet 100 mg PO DAILY gout 08/29/21 [History Last Taken Unknown] amiodarone 200 mg tablet 200 mg PO DAILY heart rate 08/29/21 [History Last Taken Unknown] apixaban 5 mg tablet 5 mg PO BID blood thinner 08/29/21 [History Last Taken Unknown] aripiprazole 2 mg tablet 2 mg PO DAILY depression 08/29/21 [History Last Taken Unknown] cetirizine 10 mg tablet 10 mg PO DAILY allergies 08/29/21 [History Last Taken Unknown] cholecalciferol (vitamin D3) 25 mcg (1,000 unit) tablet 25 mcg PO DAILY supplement 08/29/21 [History Last Taken Unknown] darbepoetin ismael in polysorbat 60 mcg/mL in polysorbate injection 60 mcg subcut QWEEK renal failure 08/29/21 [History Last Taken Unknown] entecavir 0.5 mg tablet 0.5 mg PO QWEEK liver failure 08/29/21 [History Last Taken Unknown] lactulose 20 gram/30 mL oral solution 20 g PO BID liver failure 08/29/21 [History Last Taken Unknown] melatonin 3 mg tablet 3 mg PO QHS sleep 08/29/21 [History Last Taken Unknown] metoprolol succinate 25 mg tablet,extended release 24 hr 25 mg PO DAILY heart rate/blood pressure 08/29/21 [History Last Taken Unknown] midodrine 10 mg tablet mg low BP 08/29/21 [History Last Taken Unknown] oxycodone 5 mg capsule 5 mg PO Q6H PRN Pain 08/29/21 [History Last Taken Unknown] pantoprazole 40 mg tablet,delayed release 40 mg PO QHS protonix 08/29/21 [History Last Taken Unknown] sodium chloride 0.65 % nasal spray aerosol ([place] Nasal) 2 spray intranasal Q4H PRN Dry Nasal Passages 08/29/21 [History Last Taken Unknown] tacrolimus 1 mg capsule, immediate-release 1 mg PO Q12H liver failure 08/29/21 [History Last Taken Unknown] timolol maleate 0.5 % once daily eye drops 1 drp EACH EYE DAILY glaucoma 08/29/21 [History Last Taken Unknown] ursodiol 300 mg capsule 300 mg PO TID liver failure 08/29/21 [History Last Taken Unknown] vitamin E 268 mg (400 unit) capsule 268 mg PO DAILY supplement 08/29/21 [History Last Taken Unknown] Allergy/AdvReac Type Severity Reaction Status Date / Time hydrocodone Allergy PT UNSURE Verified 08/29/21 00:07 OF REACTION levofloxacin [From Levaquin] Allergy PT UNSURE Verified 08/29/21 00:07 OF REACTION prochlorperazine Allergy Hives Verified 08/29/21 00:07 [From Compazine] aspirin AdvReac Other Verified 08/29/21 00:07 codeine AdvReac Nausea Verified 08/29/21 00:07 ibuprofen AdvReac Other Verified 08/29/21 00:07 Family History Other CVA (cerebral vascular accident) Surgical History Liver transplant recipient Social History Smoking Status: Former smoker ROS ROS Narrative Negative except above Physical Exam Narrative Alert awake oriented x 3 bipap no pallor no icterus no JVD s1s2 no murmurs lungs rales abdomen soft no organomegaly no edema no cyanosis Lab / Micro Data Result Diagrams: 08/29/21 05:05 08/29/21 05:05 Labs: Laboratory Results - last 24 hr 08/29/21 00:15: WBC 22.0 H, RBC 2.90 L, Hgb 8.6 L, Hct 28.4 L, MCV 97.9 H, MCH 29.7, MCHC 30.3 L, RDW Std Deviation 66.5 H, RDW Coeff of [place]etu 18.5 H, Plt Count 396, MPV 10.2, Immature Gran % (Auto) 1.300 H, Neut % (Auto) 87.5 H, Lymph % (Auto) 2.3 L, [place] % (Auto) 7.5, Eos % (Auto) 1.0, Baso % (Auto) 0.4, Absolute Neuts (auto) 19.3 H, Absolute Lymphs (auto) 0.50 L, Nucleated RBC % 0, Differential Comment SCANNED, Diff Path Review May foll, Hypochromasia 2+, Anisocytosis 1+ 08/29/21 00:15: Sodium 132 L, Potassium 3.3 L, Chloride 94 L, Carbon Dioxide 30.0, Anion Gap 8, BUN 54 H, Creatinine 2.82 H, Estim Creat Clear Calc 23.58, Est GFR (MDRD) Af Amer 29 L, Est GFR (MDRD) Non-Af 24 L, BUN/Creatinine Ratio 19.1, Glucose 170 H, Calcium 9.3 08/29/21 00:15: B-Natriuretic Peptide 1099.8 H 08/29/21 05:05: WBC 19.2 H, RBC 2.96 L, Hgb 8.9 L, Hct 29.0 L, MCV 98.0 H, MCH 30.1, MCHC 30.7 L, RDW Std Deviation 65.9 H, RDW Coeff of [place]u 18.5 H, Plt Count 359, MPV 10.3, Immature Gran % (Auto) 1.300 H, Neut % (Auto) 87.5 H, Lymph % (Auto) 4.3 L, [place] % (Auto) 6.2, Eos % (Auto) 0.4, Baso % (Auto) 0.3, Absolute Neuts (auto) 16.8 H, Absolute Lymphs (auto) 0.82 L, Nucleated RBC % 0, Differential Comment SCANNED, Hypochromasia 2+, Anisocytosis 1+, Microcytosis 1+ 08/29/21 05:05: Sodium 133 L, Potassium 3.5, Chloride 93 L, Carbon Dioxide 30.0, Anion Gap 10, BUN 53 H, Creatinine 2.96 H, Estim Creat Clear Calc 22.47, Est GFR (MDRD) Af Amer 27 L, Est GFR (MDRD) Non-Af 22 L, BUN/Creatinine Ratio 17.9, Glucose 126 H, Calcium 9.3 ABG Data ABG results: ABG 08/29/21 08:04 Specimen Type ART Sample Site R Radial pH 7.32 L Bicarbonate Actual 27.3 H Total CO2 29 Base Excess 1 O2 Saturation 87 L O2 % 50 ABG pCO2 52.8 H ABG pO2 58 L Rodrigo Test Positive O2 Delivery Device BiPAP POC PEEP 7 Rhythm Strip Rhythm Strip: Sinus Tach Rate: 104 Radiology Impression Chest X-Ray 08/29/21 00:30 IMPRESSION: Bilateral airspace disease, concerning for multifocal infection. Small pleural effusions, right greater than left. Electronically Signed: Latrell Pina MD at 1:14 EDT ,
[2021-08-29] MEDS: Nystatin Powder 15gm Bottle 1 APPLIC TOPICAL (21:28)
[2021-08-29] MEDS: MELATONIN 3 MG TABLET PO (21:28)
[2021-08-29] MEDS: Pantoprazole Sodium 40 MG Tablet PO (21:29)
[2021-08-30] VITALS (42 sets, daily range): BP systolic 90–123; BP diastolic 39–69; PULSE 79–97; RESP 12–87; TEMP 2.6–37; O2SAT 94–100
[2021-08-30 03:53] LABS: Absolute Lymphocyte Count 0.57 X10^3/uL (0.83-4.51); Absolute Neutrophil Count 12.9 X10^3/uL (2.0-7.7); Basophil# 0.04 X10^3/uL; Basophil% 0.3 % (0-1); Eosinophil# 0.01 X10^3/uL; Eosinophils% 0.1 % (0-5); Hematocrit 23.2 % (40-54); Hemoglobin 6.9 g/dL (13.0-16.5); Lymphocyte # 0.57 X10^3/ul (0.83-4.51); Lymphocyte % 3.8 % (19-41); Mean Corp Hgb Conc 29.7 g/dL (32-36); Mean Corpuscular Hgb 29.2 pg (27.0-32.0); Mean Corpuscular Volume 98.3 fL (80-94); Mean Platelet Vol. 9.9 fl (6.2-12.0); Monocyte# 1.27 X10^3/uL; Monocyte% 8.4 % (0-10); NRBC Flagged by Analyzer 0 % (0-5); Neutrophil # 12.88 X10^3/uL (2.7-7.7); Neutrophil % 85.6 % (47-70); POSITIVE DIFFERENTIAL YES; POSITIVE MORPHOLOGY YES; Platelet Count 274 K/mm3 (150-450); RBC Distribution Width CV 18.7 % (11.6-14.6); RBC Distribution Width SD 67.7 fl (35.1-43.9); Red Blood Count 2.36 M/mm3 (4.6-6.2)
[2021-08-30 03:55] LABS: Differential Indicated SCAN CRITERIA MET
[2021-08-30 04:10] LABS: Anion Gap 12 (5-15); BUN 59 mg/dL (7-18); BUN/Creat Ratio 19.3 RATIO (10-20); Calcium,Total 9.3 mg/dL (8.5-10.1); Chloride 92 mmol/L (98-107); Creatinine, Serum 3.06 mg/dL (0.70-1.30); EST Glomerular Filtration Rate 22 mL/min (>60); Est Glom Filt Rate - Afr Amer 26 mL/min (>60); Estimated Creatinine Clearance 21.73 ml/min; Glucose 61 mg/dL (74-106); Potassium 3.6 mmol/L (3.5-5.1); Sodium Level 132 mmol/L (136-145)
[2021-08-30 04:11] LABS: Anisocytosis 1+; Macrocytosis 1+
[2021-08-30 04:12] LABS: Polychromasia 1+
--- NOTE | 2021-08-30 06:12 | PCM.PN.INT ---
Assessment & Plan Assessment/Plan (1) Respiratory failure: PLAN: Plan RECOMMENDATIONS: 1. Restart home midodrine. Initiate Levophed this morning to maintain a mean arterial pressure at or above 65 mmHg. 2. Send type and screen. Plan to transfuse 2 units packed red blood cells. 3. Check stool occult blood. 4. Hold Eliquis. 5. Increase PPI therapy to twice daily. 6. Initiate broad-spectrum antimicrobials, pending infectious work-up. 7. Send blood cultures. 8. Obtain speech therapy evaluation. 9. Obtain KUB to confirm appropriate Corpak placement. IMPRESSIONS: 1. Acute on chronic hypoxemic respiratory failure Likely multifactorial in etiology. Although hypervolemia in the setting of missed dialysis sessions is likely the culprit, the patient just had an extensive hospitalization at [facility], during which time, he was identified as being high risk for aspiration. Therefore, an underlying pulmonary infectious process is also a distinct possibility. There has been interval improvement in his oxygenation status following dialysis yesterday. Plan to continue supplemental oxygen as needed for saturations greater than 90%. The patient is going to be started on empiric antimicrobials as well. He will need a speech therapy evaluation while admitted to the hospital. Nutritional support via his feeding tube will be considered once placement has been confirmed. Echocardiogram is still pending. Plan to obtain follow-up chest x-ray this morning to assess for interval improvement in the previously noted radiographic findings. 2. Distributive shock Unclear if the patient's current hemodynamic status is related to relative intravascular depletion with subsequent third spacing due to poor nutritional status and renal disease. Alternatively, I cannot definitively rule out an occult infectious etiology either. Therefore, the patient has been initiated on antimicrobials and blood cultures have been obtained. The patient just had an extensive hospitalization with multiple sources of infection identified and treated. Plan to continue Levophed to maintain a mean arterial pressure at or above 65 mmHg. I do suspect that the patient has a low baseline blood pressure, based off of prior nephrology documentation and the need for midodrine as an outpatient. 3. Anemia The patient has chronic anemia, which is worsened this morning, with a hemoglobin of 6.9 g/dL. Accordingly, will plan to type and cross the patient for 2 units of packed red blood cells, with tentative plans for them to be administered during dialysis today. Stool for occult blood will be checked. PPI therapy twice daily has been initiated. 4. End-stage renal disease on hemodialysis Nephrology is currently following to assist with hemodialysis needs. The patient routinely receives dialysis on a Monday, Monday, Monday schedule. 5. 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 The patient was apparently discharged from [facility] on lactulose, which may have led to excessive GI losses. 6. Recent prolonged hospitalization leading to debility/high aspiration risk status post Corpak placement The patient recently spent over 2 months at [facility] with a prolonged, complicated hospitalization. Ultimately, the patient was considered high risk for aspiration and a Corpak was placed. Recommend formal speech therapy evaluation while admitted to the hospital. Feeding tube can be utilized once appropriate position has been confirmed. 7. History of atrial fibrillation/diabetes mellitus Complicates care, management, recovery and prognosis. Hold Eliquis for now in light of worsening anemia. Initiate sliding scale insulin coverage, if needed. TIME: 42 minutes of critical care time, independent of procedures, was spent addressing the patient's acute on chronic hypoxemic respiratory failure, distributive shock, anemia, end-stage renal disease, review of all data and collaboration with the care team. Subjective Subjective The patient was seen and examined at the bedside this morning. Events from the last 24 hours have been reviewed. The patient is currently afebrile and maintaining appropriate oxygen saturations on 4 L/min via nasal cannula, which is the patient's baseline requirement. The patient was able to tolerate dialysis yesterday with 3 L of fluid removed. His blood pressures remain tenuous at best. However, according to nephrology documentation, the patient typically runs on the low side from a blood pressure perspective. The patient has numerous chronic medical issues including cirrhosis secondary to HCV status post failed HCV therapy, complicated by hepatocellular carcinoma, now status post liver transplant in January 2011 on chronic tacrolimus therapy. The patient has a remote history of organizing pneumonia, which was treated with steroids along with atrial fibrillation on Eliquis, end-stage renal disease on hemodialysis Monday, Monday, Monday, chronic anemia and type 2 diabetes mellitus. According to documentation, the patient was admitted to [facility] June 06 through August 21, 2021. He initially presented with COVID-pneumonia that was treated with steroid therapy. His hospital course was complicated by atrial fibrillation with RVR, ultimately requiring ICU admission. He also developed Klebsiella pneumonia and had to be treated with ceftriaxone. In addition, ERCP completed during that hospital stay revealed a biliary stricture that required stent placement. The patient also developed SBP according to documentation in July, which was treated as well with ceftriaxone. He was also found to have a retroperitoneal abscess on MRI in July, which is managed with IR drain placement. His cultures were positive for ESBL E. coli, Yaquelin and Enterococcus. The patient completed a treatment course of ertapenem, fluconazole and vancomycin. Swallow study performed on August 12 demonstrated that the patient was not safe for oral intake. Therefore, a Corpak was placed to facilitate tube feed administration. Objective Data Objective Data The patient's most recent lab work, culture data and imaging studies have all been personally reviewed. Vital Signs: Vital Signs Temp Pulse Resp BP Pulse Ox O2 Del Method O2 Flow Rate 97.9 F 90 19 H 98/47 L 100 High Flow 4 08/30/21 05:00 08/30/21 06:00 08/30/21 06:00 08/30/21 06:00 08/30/21 06:00 08/30/21 06:00 08/30/21 06:00 FiO2 60 08/29/21 19:00 Oxygen Flow Rate (L/min) 4 Oxygen Delivery Method High Flow Weight: 160 lb 14.999 oz Body Mass Index (BMI) 24.5 Intake & Output: Intake and Output for Last 24 Hours 08/28/21 08/29/21 08/30/21 23:59 23:59 23:59 Intake Total 625 / 725 100 / 100 Output Total 0 / 3000 3000 / 3000 Balance 625 / -2275 -2900 / -2900 Lab / Micro Data Attestation: I reviewed the patient's lab results. Result Diagrams: 08/31/21 03:30 08/31/21 03:30 Labs: Laboratory Results - last 24 hr 08/29/21 05:05: Differential Comment SCANNED, Hypochromasia 2+, Anisocytosis 1+, Microcytosis 1+ 08/30/21 03:45: WBC 15.0 H, RBC 2.36 L, Hgb 6.9 L, Hct 23.2 L, MCV 98.3 H, MCH 29.2, MCHC 29.7 L, RDW Std Deviation 67.7 H, RDW Coeff of Neetu 18.7 H, Plt Count 274, MPV 9.9, Immature Gran % (Auto) 1.800 H, Neut % (Auto) 85.6 H, Lymph % (Auto) 3.8 L, [place] % (Auto) 8.4, Eos % (Auto) 0.1, Baso % (Auto) 0.3, Absolute Neuts (auto) 12.9 H, Absolute Lymphs (auto) 0.57 L, Nucleated RBC % 0, Polychromasia 1+, Anisocytosis 1+, Macrocytosis 1+ 08/30/21 03:45: Sodium 132 L, Potassium 3.6, Chloride 92 L, Carbon Dioxide 28.0, Anion Gap 12, BUN 59 H, Creatinine 3.06 H, Estim Creat Clear Calc 21.73, Est GFR (MDRD) Af Amer 26 L, Est GFR (MDRD) Non-Af 22 L, BUN/Creatinine Ratio 19.3, Glucose 61 L, Calcium 9.3 ABG Data ABG results: ABG 08/29/21 08:04 Specimen Type ART Sample Site R Radial pH 7.32 L Bicarbonate Actual 27.3 H Total CO2 29 Base Excess 1 O2 Saturation 87 L O2 % 50 ABG pCO2 52.8 H ABG pO2 58 L Rodrigo Test Positive O2 Delivery Device BiPAP POC PEEP 7 Rhythm Strip Rhythm Strip: Sinus Tach Rate: 104 Physical Exam Const alert Constitutional Narrative: Chronically ill in appearance. General Appearance: cooperative HEENT normocephalic and head/scalp atraumatic HEENT Narrative: Corpak currently in place. Teeth and Gingiva: poor dentition Eyes PERRL and EOMs intact bilaterally Neck supple General: trachea midline Chest inspection of chest normal Resp Resp Narrative: Coarse rhonchi noted bilaterally. Effort and Inspection: tachypneic Cardio regular rate and regular rhythm GI soft to palpation and non-tender Inspection: abdominal distention Extremity General Extremity: edema; Negative for clubbing Skin no rashes or lesions noted Neuro CN's II-XII intact bilaterally and no focal motor deficits Psych Mood & Affect: flat affect Charges/Coding Procedures Hospitalists Procedures: 23078 Critial Care 1st Hr
--- NOTE | 2021-08-30 08:31 | RAD_ITS ---
STUDY: X-RAY - ABDOMEN/PELVIS REASON FOR EXAM: Male, 71 years old. Corpak position confirmation TECHNIQUE: Single AP view of the abdomen / pelvis. COMPARISON: None. FINDINGS: The tip of the feeding tube is in the third portion of the duodenum adjacent to the ligament of Treitz. RAD/Abdomen Single View (Portable) IMPRESSION: The tip of the feeding tube is in the third portion of the duodenum adjacent to the ligament of Treitz. Electronically Signed: Zackery Kent MD at 9:58 EDT ,
--- NOTE | 2021-08-30 09:30 | RAD_ITS ---
STUDY: X-RAY CHEST REASON FOR EXAM: Male, 71 years old. Respiratory Failure TECHNIQUE: Single AP portable view of the chest. COMPARISON: Comparison is made with prior study dated 08/29/2021. FINDINGS: EKG electrodes are seen. A right-sided central catheter seen with the tip at the junction of the superior vena cava and right atrium. A feeding tube is seen. Progressive bilateral alveolar infiltrates. Small bilateral pleural effusions. Normal size heart. Normal mediastinum and emma. Normal visualized pulmonary arteries. Normal visualized aortic arch and descending thoracic aorta. There are degenerative changes of the visualized thoracic spine. Normal visualized ribs, clavicles, and shoulders. There is no demonstrated abnormality of the visualized soft tissue structures of the upper abdomen. RAD/Chest 1 View (Portable) IMPRESSION: Progressive bilateral pulmonary infiltrates and small bilateral pleural effusions slightly more prominent on the right side. Electronically Signed: Zackery Kent MD at 9:59 EDT ,
[2021-08-30 09:47] LABS: AST(SGOT) 13 U/L (15-37); Alanine Aminotransfer ALT/SGPT 13 U/L (16-61); Albumin, Serum 1.9 g/dL (3.2-5.0); Alkaline Phosphatase 446 U/L (45-117); Bilirubin, Direct 0.23 mg/dL (0.00-0.30); Globulin 2.6 g/dL (2.2-4.2); Protein, Total 4.5 g/dL (6.4-8.2)
[2021-08-30 09:54] LABS: Lactic Acid 2.2 mmol/L (0.4-1.9)
[2021-08-30] MEDS: Midodrine HCl 5 MG Tablet 10 MG PO ×2 (10:38→16:53)
[2021-08-30] MEDS: Ursodiol 250 MG Tablet PO ×2 (10:39→16:53)
[2021-08-30] MEDS: Loratadine 10 MG Tablet PO (10:39)
[2021-08-30] MEDS: Allopurinol 100 MG Tablet PO (10:39)
[2021-08-30] MEDS: Amiodarone 200 MG Tablet PO (10:39)
[2021-08-30] MEDS: ARIPiprazole 2 MG Tablet PO (10:39)
[2021-08-30] MEDS: Cholecalciferol (VIT D3) 25 MCG TABLET (1,000 UNITS) PO (10:40)
[2021-08-30] MEDS: Tacrolimus Anhydrous 1 MG Capsule PO ×2 (10:40→21:09)
[2021-08-30] MEDS: Nystatin Powder 15gm Bottle 1 APPLIC TOPICAL ×2 (10:41→21:09)
[2021-08-30] MEDS: Timolol 0.5% 5ML OPTH.BTL 1 DRP EACH EYE (10:42)
--- NOTE | 2021-08-30 10:44 | EX.PCM.CON.S ---
Assessment & Plan Assessment/Plan (1) Chronic kidney failure: PLAN: -recent issues with completing HD; unclear if access issue or circuit hemodynamics -will attempt fistula first, if unsuccessful then place catheter -for most part fistula has worked well per patient even though some pulsatility; will get duplex to assess but unless recurrent difficulties would defer anything invasive at this time -LE venous duplex studies and IVC/iliac studies pending HPI Consult Data Date of Consult: 08/30/21 HPI Narrative HPI Narrative: MUSA LOPEZ, is a 71 M who presents from transitional care with a complex acute and chronic medical history. Prior history of ESRD on HD for several years, with Left brach-ceph fistula that has functioned well for 6 years. Also history of liver transplant unknown timing. He recently was admitted to outside facility for extended period of time for multiple issues including covid pneumonia, SBP, malnutrition, retroperitoneal abscess. His stay in the acute setting was very prolonged. He has been in the [facility] for unknown length of time but recently has had issues with using fistula for HD session, and either missed or had abbreviated runs for last 2 sessions. He presents with SOB, extensive edema including bilateral lower extremities, abdomen/flank to lower thorax, left upper extremity. Per patient limited ability to give history has some mild LUE edema, no prior DVT or IVC filters. [facility] Medical History Anemia Anxiety Chronic kidney disease Chronic respiratory failure Cirrhosis Depression Dialysis patient Gout Hx of gastroesophageal reflux (GERD) Liver cell carcinoma Paroxysmal A-fib Type 2 diabetes mellitus Home Medications Therapeutic M 1 tab NG DAILY supplement 08/29/21 [History Last Taken Unknown] albuterol sulfate 0.63 mg/3 mL solution for nebulization 0.63 mg inhalation Q4H PRN Shortness Of Breath 08/29/21 [History Last Taken Unknown] alendronate 70 mg tablet 70 mg PO QWEEK supplement 08/29/21 [History Last Taken Unknown] allopurinol 100 mg tablet 100 mg PO DAILY gout 08/29/21 [History Last Taken Unknown] amiodarone 200 mg tablet 200 mg PO DAILY heart rate 08/29/21 [History Last Taken Unknown] apixaban 5 mg tablet 5 mg PO BID blood thinner 08/29/21 [History Last Taken Unknown] aripiprazole 2 mg tablet 2 mg PO DAILY depression 08/29/21 [History Last Taken Unknown] cetirizine 10 mg tablet 10 mg PO DAILY allergies 08/29/21 [History Last Taken Unknown] cholecalciferol (vitamin D3) 25 mcg (1,000 unit) tablet 25 mcg PO DAILY supplement 08/29/21 [History Last Taken Unknown] darbepoetin ismael in polysorbat 60 mcg/mL in polysorbate injection 60 mcg subcut QWEEK renal failure 08/29/21 [History Last Taken Unknown] entecavir 0.5 mg tablet 0.5 mg PO QWEEK liver failure 08/29/21 [History Last Taken Unknown] lactulose 20 gram/30 mL oral solution 20 g PO BID liver failure 08/29/21 [History Last Taken Unknown] melatonin 3 mg tablet 3 mg PO QHS sleep 08/29/21 [History Last Taken Unknown] metoprolol succinate 25 mg tablet,extended release 24 hr 25 mg PO DAILY heart rate/blood pressure 08/29/21 [History Last Taken Unknown] midodrine 10 mg tablet mg low BP 08/29/21 [History Last Taken Unknown] oxycodone 5 mg capsule 5 mg PO Q6H PRN Pain 08/29/21 [History Last Taken Unknown] pantoprazole 40 mg tablet,delayed release 40 mg PO QHS protonix 08/29/21 [History Last Taken Unknown] sodium chloride 0.65 % nasal spray aerosol (Frank Nasal) 2 spray intranasal Q4H PRN Dry Nasal Passages 08/29/21 [History Last Taken Unknown] tacrolimus 1 mg capsule, immediate-release 1 mg PO Q12H liver failure 08/29/21 [History Last Taken Unknown] timolol maleate 0.5 % once daily eye drops 1 drp EACH EYE DAILY glaucoma 08/29/21 [History Last Taken Unknown] ursodiol 300 mg capsule 300 mg PO TID liver failure 08/29/21 [History Last Taken Unknown] vitamin E 268 mg (400 unit) capsule 268 mg PO DAILY supplement 08/29/21 [History Last Taken Unknown] Allergy/AdvReac Type Severity Reaction Status Date / Time hydrocodone Allergy PT UNSURE Verified 08/29/21 00:07 OF REACTION levofloxacin [From Levaquin] Allergy PT UNSURE Verified 08/29/21 00:07 OF REACTION prochlorperazine Allergy Hives Verified 08/29/21 00:07 [From Compazine] aspirin AdvReac Other Verified 08/29/21 00:07 codeine AdvReac Nausea Verified 08/29/21 00:07 ibuprofen AdvReac Other Verified 08/29/21 00:07 Family History Other CVA (cerebral vascular accident) Surgical History Liver transplant recipient Social History Smoking Status: Former smoker ROS Review of Systems ROS Unobtainable: due to mental status and other Details: on BIPAP, limited ability to communicate due to resp failure/fatigue Physical Exam Const General Appearance: ill appearing Positive for acutely and chronically and grossly edematous Orientation / Consciousness: awake Exam Limitations: physical limitations Resp Effort and Inspection: respiratory distress and uses accessory muscles Cardio Rate: regular rate Rhythm: regular rhythm Peripheral Pulses: brachial pulses present right and left (left brach-ceph avf, +thrill with some pulsation ) and radial pulses present; Negative for posterior tibial pulses present or dorsalis pedis pulses present GI Inspection: edema findings and abdominal distention Palpation: soft; Negative for tender Lab / Micro Data Result Diagrams: 08/30/21 03:45 08/30/21 03:45 Labs: Laboratory Results - last 24 hr 08/30/21 03:45: WBC 15.0 H, RBC 2.36 L, Hgb 6.9 L, Hct 23.2 L, MCV 98.3 H, MCH 29.2, MCHC 29.7 L, RDW Std Deviation 67.7 H, RDW Coeff of Neetu 18.7 H, Plt Count 274, MPV 9.9, Immature Gran % (Auto) 1.800 H, Neut % (Auto) 85.6 H, Lymph % (Auto) 3.8 L, [place] % (Auto) 8.4, Eos % (Auto) 0.1, Baso % (Auto) 0.3, Absolute Neuts (auto) 12.9 H, Absolute Lymphs (auto) 0.57 L, Nucleated RBC % 0, Polychromasia 1+, Anisocytosis 1+, Macrocytosis 1+ 08/30/21 03:45: Sodium 132 L, Potassium 3.6, Chloride 92 L, Carbon Dioxide 28.0, Anion Gap 12, BUN 59 H, Creatinine 3.06 H, Estim Creat Clear Calc 21.73, Est GFR (MDRD) Af Amer 26 L, Est GFR (MDRD) Non-Af 22 L, BUN/Creatinine Ratio 19.3, Glucose 61 L, Calcium 9.3 08/30/21 06:55: Blood Type AB POSITIVE, Antibody Screen NEGATIVE 08/30/21 06:55: Crossmatch See Detail 08/30/21 08:57: Total Bilirubin 0.50, Direct Bilirubin 0.23, AST 13 L, ALT 13 L, Alkaline Phosphatase 446 H, Total Protein 4.5 L, Albumin 1.9 L, Globulin 2.6 08/30/21 08:57: Lactic Acid 2.2 H* Rhythm Strip Rhythm Strip: Sinus Tach Rate: 104 Radiology Impression KUB X-Ray 08/30/21 08:31 IMPRESSION: The tip of the feeding tube is in the third portion of the duodenum adjacent to the ligament of Treitz. Electronically Signed: Zackery Kent MD at 9:58 EDT , Chest X-Ray 08/30/21 09:30 IMPRESSION: Progressive bilateral pulmonary infiltrates and small bilateral pleural effusions slightly more prominent on the right side. Electronically Signed: Zackery Kent MD at 9:59 EDT , Charges/Coding Visit Charges Inpatient E&M: 02024 Init Hosp L2
--- NOTE | 2021-08-30 11:06 | CASEMGMT ---
GRICEL DOSS reviewed chart and patient was admitted from [facility]. GRICEL DOSS called Rosalie in admissions at [facility]. Per Rosalie, patient was admitted from [facility] on 08/21/21. Patient was admitted on 06/06/21 to [facility] after being transferred from [facility]. Rosalie emailed this RN ROMARIO [facility] H&P and discharge summary. [facility] documents printed and placed on chart. GRICEL DOSS updated Dr. London regarding information received by [facility]. CM will continue to follow this patient and plan for a safe discharge when medically ready.
--- NOTE | 2021-08-30 11:48 | WOUNDNOTE ---
wound photo: left hand
--- NOTE | 2021-08-30 11:48 | WOUNDNOTE ---
wound photo: sacrum/lower back
--- NOTE | 2021-08-30 12:09 | PN.RENAL_ITS ---
Subjective Subjective Patient was started on Levophed this morning Hemoglobin is low getting 2 units of blood transfusion plan to be given with dialysis Objective Data Objective Data Vital Signs: Vital Signs Temp Pulse Resp BP Pulse Ox O2 Del Method O2 Flow Rate 97.1 F L 89 16 107/48 L 97 Nasal Cannula 4 08/30/21 12:00 08/30/21 12:00 08/30/21 12:00 08/30/21 12:00 08/30/21 12:00 08/30/21 12:00 08/30/21 12:00 FiO2 60 08/29/21 19:00 Oxygen Flow Rate (L/min) 4 Oxygen Delivery Method Nasal Cannula Weight: 69.2 kg Body Mass Index (BMI) 24.5 Intake & Output: Intake and Output for Last 24 Hours 08/28/21 08/29/21 08/30/21 23:59 23:59 23:59 Intake Total 625 / 725 313.20 / 313.20 Output Total 0 / 3000 3000 / 3000 Balance 625 / -2275 -2686.80 / -2686.80 Lab / Micro Data Attestation: I reviewed the patient's lab results. Result Diagrams: 08/30/21 03:45 08/30/21 03:45 Labs: Laboratory Results - last 24 hr 08/30/21 03:45: WBC 15.0 H, RBC 2.36 L, Hgb 6.9 L, Hct 23.2 L, MCV 98.3 H, MCH 29.2, MCHC 29.7 L, RDW Std Deviation 67.7 H, RDW Coeff of Neetu 18.7 H, Plt Count 274, MPV 9.9, Immature Gran % (Auto) 1.800 H, Neut % (Auto) 85.6 H, Lymph % (Auto) 3.8 L, [place] % (Auto) 8.4, Eos % (Auto) 0.1, Baso % (Auto) 0.3, Absolute Neuts (auto) 12.9 H, Absolute Lymphs (auto) 0.57 L, Nucleated RBC % 0, Polychromasia 1+, Anisocytosis 1+, Macrocytosis 1+ 08/30/21 03:45: Sodium 132 L, Potassium 3.6, Chloride 92 L, Carbon Dioxide 28.0, Anion Gap 12, BUN 59 H, Creatinine 3.06 H, Estim Creat Clear Calc 21.73, Est GFR (MDRD) Af Amer 26 L, Est GFR (MDRD) Non-Af 22 L, BUN/Creatinine Ratio 19.3, Gluc ose 61 L, Calcium 9.3 08/30/21 06:55: Blood Type AB POSITIVE, Antibody Screen NEGATIVE 08/30/21 06:55: Crossmatch See Detail 08/30/21 08:57: Total Bilirubin 0.50, Direct Bilirubin 0.23, AST 13 L, ALT 13 L, Alkaline Phosphatase 446 H, Total Protein 4.5 L, Albumin 1.9 L, Globulin 2.6 08/30/21 08:57: Lactic Acid 2.2 H* 08/30/21 11:40: Ammonia 33.0 H Radiography Diagnostic Testing: Radiology Impression Venous Doppler Study 08/29/21 09:12 Interpretation Summary Deep veins of the right lower extremity are patent and compressible segmentally. There is no evidence of right lower extremity deep vein thrombosis. The right great saphenous vein appears patent and compressible segmentally. Deep veins of the left lower extremity are patent and compressible segmentally. There is no evidence of left lower extremity deep vein thrombosis. The left great saphenous vein appears patent and compressible segmentally. Ordering Physician: Knau Chan Performed By: Myke Monahan RVT Venous Doppler Study 08/29/21 09:12 Interpretation Summary Deep veins of the left upper extremity are patent and compressible segmentally. There is no evidence of deep vein thrombosis. There is no evidence of left upper extremity deep vein thrombosis. Ordering Physician: Kanu Chan Performed By: Myke Monahan, RVT ? A/V Fistula Ultrasound 08/29/21 09:17 Interpretation Summary Patent left brachio-cephalic fistula with normal velocities and satisfactory flow volumes. Mid segment of fistula enlarged to 28 mm Ordering Physician: Kanu Chan Performed By: Myke Monahan, RVT X-Ray 08/30/21 08:31 IMPRESSION: The tip of the feeding tube is in the third portion of the duodenum adjacent to the ligament of Treitz. Electronically Signed: Zackery Kent MD at 9:58 EDT , Chest X-Ray 08/30/21 09:30 IMPRESSION: Progressive bilateral pulmonary infiltrates and small bilateral pleural effusions slightly more prominent on the right side. Electronically Signed: Zackery Kent MD at 9:59 EDT , Rhythm Strip Rhythm Strip: Sinus Tach Rate: 104 Physical Exam Narrative Patient is alert pleasant NG present S1-S2 regular Breath sounds are diminished Abdomen is obese Positive for dependent edema largely lower extremity extending to the abdomen Assessment & Plan Assessment/Plan (1) Chronic kidney failure: PLAN: -recent issues with completing HD; unclear if access issue or circuit hemodynamics -Patient had ultrafiltration yesterday of 3 L -Main issues remain volume overload -We will plan for hemodialysis today goals would be 2 to 3 L of ultrafiltration as tolerates -He will be getting blood transfusion with dialysis which will help -Continue with midodrine albumin Discussed with RN Thank you, please call [phone] with any concerns
[2021-08-30 13:15] LABS: Reflex Lactate? Y
[2021-08-30 13:17] LABS: M R Staph aureus DNA By PCR Negative (Negative); Probe Check PASS; Specimen Processing Control PASS
[2021-08-30 13:24] LABS: Pathologist Review Reviewed
--- NOTE | 2021-08-30 13:30 | PCM.RX.CS ---
Consult Pharmacy has been consulted to manage selected antiobiotic: Vancomycin Type of Consult: New start Labs: Sodium 132 mmol/L (136-145) L 08/30/21 03:45 Potassium 3.6 mmol/L (3.5-5.1) 08/30/21 03:45 Chloride 92 mmol/L (98-107) L 08/30/21 03:45 Carbon Dioxide 28.0 mmol/L (21.0-32.0) 08/30/21 03:45 Anion Gap 12 (5-15) 08/30/21 03:45 BUN 59 mg/dL (7-18) H 08/30/21 03:45 Creatinine 3.06 mg/dL (0.70-1.30) H 08/30/21 03:45 Est GFR (MDRD) Af Amer 26 mL/min (>60) L 08/30/21 03:45 Est GFR (MDRD) Non-Af 22 mL/min (>60) L 08/30/21 03:45 BUN/Creatinine Ratio 19.3 RATIO (10-20) 08/30/21 03:45 Glucose 61 mg/dL (74-106) L 08/30/21 03:45 Pharmacy Plan for Drug Dosing: NEW START IV VANCOMYCIN Consulting Physician: ZAHIRA Indication: PNEUMONIA Goal Trough: 15-20 MG/DL SrCr: 3.06 (HD PT) CrCl: HD PATIENT Comments: MWF HD schedule. Patient did have HD yesterday. Vancomycin Dose: Loading dose of 1750 mg ordered for this afternoon after HD. Patient is a MWF schedule. Next dose scheduled after next HD session (09/01). Will get a random level the morning of the following HD session (09/03) and then doses will be based on pre-HD levels per policy. Pending Level: 09/03 @ 0600 - RANDOM Pharmacy Service will continue to monitor and adjust dosing as required.
--- NOTE | 2021-08-30 14:30 | CASEMGMT ---
Social Work SW attempted to meet with pt to discuss discharge plan. Pt was sleeping and SW could not awake. Phone call placed to pt son Ronald who confirms that pt will return to [facility] when he is ready for discharge. Phone call to Rosalie at [facility] who confirms they can take pt back but pt will need a precert prior to returning. Precert not started at this time due to pt is not medically ready. Plan: [facility], precert will be needed but not started at this time. ANTONIO Gregg
--- NOTE | 2021-08-30 14:56 | CASEMGMT ---
Discharge [employer] Press Operator Larisa Patterson [employer] Second Press Operator faxed over an update to Rosalie at [facility]. Larisa Olivera Discharge [employer]
--- NOTE | 2021-08-30 16:47 | NURSING ---
first unit of blood being transfused at this time with dialysis
--- NOTE | 2021-08-30 17:29 | PN.HOSP_ITS ---
Subjective Subjective Patient was seen and examined today, I talked briefly with critical care about his care plan. Patient appears in no distress at the time my examination, he responded to simple questions appropriately. Patient is undergoing dialysis at this time. Objective Data Objective Data Vital Signs: Vital Signs Temp Pulse Resp BP Pulse Ox O2 Del Method O2 Flow Rate 96.9 F L 81 15 92/48 L 97 Nasal Cannula 4 08/30/21 16:46 08/30/21 16:46 08/30/21 16:46 08/30/21 16:46 08/30/21 16:46 08/30/21 16:46 08/30/21 16:46 FiO2 60 08/29/21 19:00 Oxygen Flow Rate (L/min) 4 Oxygen Delivery Method Nasal Cannula Weight: 69.2 kg Body Mass Index (BMI) 24.5 Intake & Output: Intake and Output for Last 24 Hours 08/28/21 08/29/21 08/30/21 23:59 23:59 23:59 Intake Total 625 / 725 425.80 / 425.80 Output Total 0 / 3000 3000 / 3000 Balance 625 / -2275 -2574.20 / -2574.20 Lab / Micro Data Result Diagrams: 08/30/21 03:45 08/30/21 03:45 Labs: Laboratory Results - last 24 hr 08/29/21 00:15: Diff Path Review Reviewed 08/30/21 03:45: WBC 15.0 H, RBC 2.36 L, Hgb 6.9 L, Hct 23.2 L, MCV 98.3 H, MCH 29.2, MCHC 29.7 L, RDW Std Deviation 67.7 H, RDW Coeff of Neetu 18.7 H, Plt Count 274, MPV 9.9, Immature Gran % (Auto) 1.800 H, Neut % (Auto) 85.6 H, Lymph % (Auto) 3.8 L, [place] % (Auto) 8.4, Eos % (Auto) 0.1, Baso % (Auto) 0.3, Absolute Neuts (auto) 12.9 H, Absolute Lymphs (auto) 0.57 L, Nucleated RBC % 0, Polychromasia 1+, Anisocytosis 1+, Macrocytosis 1+ 08/30/21 03:45: Sodium 132 L, Potassium 3.6, Chloride 92 L, Carbon Dioxide 28.0, Anion Gap 12, BUN 59 H, Creatinine 3.06 H, Estim Creat Clear Calc 21.73, Est GFR (MDRD) Af Amer 26 L, Est GFR (MDRD) Non-Af 22 L, BUN/Creatinine Ratio 19.3, Glucose 61 L, Calcium 9.3 08/30/21 06:55: Blood Type AB POSITIVE, Antibody Screen NEGATIVE 08/30/21 06:55: Crossmatch See Detail 08/30/21 08:57: Total Bilirubin 0.50, Direct Bilirubin 0.23, AST 13 L, ALT 13 L, Alkaline Phosphatase 446 H, Total Protein 4.5 L, Albumin 1.9 L, Globulin 2.6 08/30/21 08:57: Lactic Acid 2.2 H* 08/30/21 09:07: MRSA (PCR) Negative 08/30/21 11:40: Ammonia 33.0 H Radiography Diagnostic Testing: Radiology Impression Echocardiogram 08/29/21 04:02 Interpretation Summary Normal LV size. Left ventricular systolic function is normal. Moderate eccentric left ventricular hypertrophy. The estimated ejection fraction is 60 %. Mild (1+) eccentric mitral valve insufficiency. Pulmonary artery systolic pressure is 38 mmHg. Ordering Physician: Nick Rinaldi Referring Physician: Sb Umaña Performed By: Nadja Shirley RDCS Venous Doppler Study 08/29/21 09:12 Interpretation Summary Deep veins of the right lower extremity are patent and compressible segmentally. There is no evidence of right lower extremity deep vein thrombosis. The right great saphenous vein appears patent and compressible segmentally. Deep veins of the left lower extremity are patent and compressible segmentally. There is no evidence of left lower extremity deep vein thrombosis. The left great saphenous vein ap pears patent and compressible segmentally. Ordering Physician: Kanu Chan Performed By: Myke Monahan RVT Venous Doppler Study 08/29/21 09:12 Interpretation Summary Deep veins of the left upper extremity are patent and compressible segmentally. There is no evidence of deep vein thrombosis. There is no evidence of left upper extremity deep vein thrombosis. Ordering Physician: Kanu Chan Performed By: Myke Monahan RVT ? A/V Fistula Ultrasound 08/29/21 09:17 Interpretation Summary Patent left brachio-cephalic fistula with normal velocities and satisfactory flow volumes. Mid segment of fistula enlarged to 28 mm Ordering Physician: Kanu Chan Performed By: Hero, Myke, RVT X-Ray 08/30/21 08:31 IMPRESSION: The tip of the feeding tube is in the third portion of the duodenum adjacent to the ligament of Treitz. Electronically Signed: Zackery Kent MD at 9:58 EDT , Chest X-Ray 08/30/21 09:30 IMPRESSION: Progressive bilateral pulmonary infiltrates and small bilateral pleural effusions slightly more prominent on the right side. Electronically Signed: Zackery Kent MD at 9:59 EDT , Rhythm Strip Rhythm Strip: Sinus Tach Rate: 104 Physical Exam Const alert, oriented x3 and no apparent distress Constitutional Narrative: Patient appears older than stated age, patient has a nasal feeding tube in place General Appearance: cooperative, well kempt and well developed Orientation / Consciousness: awake, oriented to person, oriented to place and oriented to time HEENT normocephalic, head/scalp atraumatic and moist oral mucous membranes Eyes PERRL, EOMs intact bilaterally and conjunctivae normal Neck supple, no JVD and thyroid normal General: trachea midline Resp normal respiratory effort, no retractions, no use of accessory muscles and clear to auscultation bilaterally Auscultation: Negative for rales, rhonchi or wheezes Cardio S1 normal heart sound, S2 normal heart sound, no murmurs, no rub and no gallops GI soft to palpation and non-tender Extremity Extremity Narrative: Very lower extremity edema is noted bilaterally Skin no rashes or lesions noted General Skin Exam: no breakdown Neuro oriented x3, CN's II-XII intact bilaterally, no focal motor deficits and no sensory deficits noted Sensorium / Orientation: awake and alert Speech: speech normal Psych Psych Narrative: Patient's affect is flat Assessment & Plan Assessment/Plan (1) History of liver transplant: PLAN: Plan 1. Acute on chronic hypoxic respiratory failure-patient is currently on nasal cannula oxygen, he is being followed by critical care, patient will continue dialysis today #2 distributive shock-etiology unclear, could be secondary to relative intravascular depletion and third spacing, patient is currently on pressor age nts and midodrine. #3 chronic anemia-secondary to end-stage renal disease and chronic liver disease -patient will have packed red blood cells administered today #4 end-stage renal disease on hemodialysis-patient is being seen by nephrology #5 chronic debility secondary to prolonged recent hospitalization in [facility], patient will be seen by PT and OT, he will need to return to skilled [facility] facility at the conclusion of his hospitalization #6 paroxysmal atrial fibrillation-patient is on Eliquis and amiodarone #7 dysphagia-etiology unclear, patient is at high risk for aspiration, speech therapy will see the patient during his hospitalization #8 congestive heart failure with preserved ejection fraction-this was probably exacerbated by lack of dialysis recently at the long-term, patient is echocardiogram shows a normal EF with no significant valvular heart disease. Continue dialysis at this time. Overall prognosis for this patient is extremely guarded, patient has multiple severe medical problems. Charges/Coding Visit Charges Inpatient E&M: 31575 Subs Hosp L3
--- NOTE | 2021-08-30 20:09 | BH.SGPN.T2 ---
Behaviors/Verbalizations/Mental Status: [] Client Response/Progress/Benefit: [] Narrative Note: Hemodialysis x 3.5 hours, Net UF 2000ml after patient received 2 units PRBC. Tolerated dialysis well, VSS. Hemostasis achieved after HD needles pulled. Fistula site (LUE) WNL.
[2021-08-30] MEDS: MELATONIN 3 MG TABLET PO (21:10)
[2021-08-30] MEDS: oxyCODONE 5 MG Tablet PO (21:27)
[2021-08-30] MEDS: TITRATION PARAMETER CHANGE 1 EACH IV (23:22)
--- NOTE | 2021-08-30 23:23 | NURSING ---
Pt's BLE lotioned well, MILA wraps applied as per order. Pt nilam well. RT questioned pt's need for HS BiPAP,use recommended to help pt shift stationary bio-fluid in lungs.
[2021-08-31] VITALS (49 sets, daily range): BP systolic 85–123; BP diastolic 46–90; PULSE 80–104; RESP 11–23; TEMP 36.4–37.2; O2SAT 16–100
[2021-08-31] MEDS: oxyCODONE 5 MG Tablet PO ×2 (03:32→21:51)
[2021-08-31] MEDS: 0.9% Saline Lock 10 ML Syringe IV ×2 (03:33→12:38)
[2021-08-31 04:01] LABS: Absolute Lymphocyte Count 0.57 X10^3/uL (0.83-4.51); Absolute Neutrophil Count 14.2 X10^3/uL (2.0-7.7); Basophil# 0.05 X10^3/uL; Basophil% 0.3 % (0-1); Eosinophil# 0.05 X10^3/uL; Eosinophils% 0.3 % (0-5); Hematocrit 31.2 % (40-54); Hemoglobin 9.9 g/dL (13.0-16.5); Lymphocyte # 0.57 X10^3/ul (0.83-4.51); Lymphocyte % 3.4 % (19-41); Mean Corp Hgb Conc 31.7 g/dL (32-36); Mean Corpuscular Hgb 30.1 pg (27.0-32.0); Mean Corpuscular Volume 94.8 fL (80-94); Mean Platelet Vol. 9.8 fl (6.2-12.0); Monocyte# 1.54 X10^3/uL; Monocyte% 9.2 % (0-10); NRBC Flagged by Analyzer 0.1 % (0-5); Neutrophil % 85.1 % (47-70); POSITIVE DIFFERENTIAL YES; POSITIVE MORPHOLOGY YES; Platelet Count 288 K/mm3 (150-450); RBC Distribution Width CV 18.7 % (11.6-14.6); RBC Distribution Width SD 64.7 fl (35.1-43.9); Red Blood Count 3.29 M/mm3 (4.6-6.2); White Blood Count 16.7 K/mm3 (4.4-11.0)
[2021-08-31 04:04] LABS: Differential Indicated SCAN CRITERIA MET
[2021-08-31 04:07] LABS: Anion Gap 10 (5-15); BUN 35 mg/dL (7-18); BUN/Creat Ratio 18.1 RATIO (10-20); Calcium,Total 8.7 mg/dL (8.5-10.1); Chloride 97 mmol/L (98-107); Creatinine, Serum 1.93 mg/dL (0.70-1.30); EST Glomerular Filtration Rate 37 mL/min (>60); Est Glom Filt Rate - Afr Amer 45 mL/min (>60); Estimated Creatinine Clearance 34.46 ml/min; Glucose 64 mg/dL (74-106); Potassium 3.3 mmol/L (3.5-5.1); Sodium Level 136 mmol/L (136-145)
[2021-08-31 04:21] LABS: Anisocytosis 2+; Macrocytosis 1+
--- NOTE | 2021-08-31 06:01 | PN.CC_ITS ---
Assessment & Plan Assessment/Plan (1) Respiratory failure: PLAN: Plan RECOMMENDATIONS: 1. Continue Levophed to maintain a mean arterial pressure at or above 65 mmHg. 2. Continue broad-spectrum antimicrobials as ordered. Obtain infectious diseases consultation. 3. Continue to hold Eliquis for now. 4. Continue PPI therapy twice daily. 5. Continue to monitor H&H daily. Transfuse if hemoglobin drops below 7 g/dL. 6. Nutritional support via NG tube. Speech therapy is following. 7. Continue dialysis support per nephrology recommendations. IMPRESSIONS: 1. Acute on chronic hypoxemic respiratory failure Likely multifactorial in etiology. Although hypervolemia in the setting of missed dialysis sessions is likely the culprit, the patient just had an extensive hospitalization at [facility], during which time, he was identified as being high risk for aspiration. Therefore, an underlying pulmonary infectious process is also a distinct possibility. There has been interval improvement in his oxygenation status following dialysis yesterday. Plan to continue supplemental oxygen as needed for saturations greater than 90%. The patient is going to be started on empiric antimicrobials as well. He will need a speech therapy evaluation while admitted to the hospital. Nutritional support via his feeding tube will be considered once placement has been confirmed. Echocardiogram is still pending. Plan to obtain follow-up chest x-ray this morning to assess for interval improvement in the previously noted radiographic findings. 2. Septic shock The patient appears to have staph bacteremia. Although the definitive source is unclear, underlying pneumonia is a possibility. In light of the patient's recent hospitalization at [facility] with multiple sites of infection, will obtain ID consultation today to assist with antimicrobial management. For now, the patient will remain on empiric broad-spectrum antimicrobials. Levophed will be continued to maintain a mean arterial pressure at or above 65 mmHg. Continue scheduled midodrine. 3. Anemia The patient has chronic anemia, which worsened at the time of his admission. The patient did receive packed red blood cells with subsequent stabilization in his blood counts. Continue to check H&H daily and transfuse if hemoglobin drops below 7 g/dL. Continue PPI twice daily as ordered. 4. End-stage renal disease on hemodialysis Nephrology is currently following to assist with hemodialysis needs. The patient routinely receives dialysis on a Monday, Monday, Monday schedule. 5. 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 The patient was apparently discharged from [facility] on lactulose, which may have led to excessive GI losses. 6. Recent prolonged hospitalization leading to debility/high aspiration risk status post Corpak placement The patient recently spent over 2 months at [facility] with a prolonged, complicated hospitalization. Ultimately, the patient was considered high risk for aspiration and a Corpak was placed. Speech therapy is currently following. Nutritional support via NG tube can be initiated. 7. History of atrial fibrillation/diabetes mellitus Complicates care, management, recovery and prognosis. Hold Eliquis for now in light of worsening anemia. TIME: 38 minutes of critical care time, independent of procedures, was spent addressing the patient's acute on chronic hypoxemic respiratory failure, septic shock, anemia, end-stage renal disease, review of all data and collaboration with the care team. Subjective Subjective The patient was seen and examined at the bedside this morning. Events from the last 24 hours have been reviewed. The patient is currently afebrile and maintaining appropriate oxygen saturations on 4 L/min via nasal cannula. He remains hemodynamically stable on Levophed at 2 mcg/min. The patient is currently documented to be overall net -2.6 L for the hospitalization. He remains on broad-spectrum antimicrobials. The patient was transfused 2 units of packed red blood cells yesterday. Hemoglobin this morning is improved to 9.9 g/dL. Potassium is low at 3.3. The patient tolerated dialysis yesterday with 2 L of fluid removed. Objective Data Objective Data The patient's most recent lab work, culture data and imaging studies have all been personally reviewed. Surface echocardiogram demonstrated moderate concentric LVH with an ejection fraction of 60%. Pulmonary artery systolic pressure was estimated to be 38 mmHg. Blood cultures dated August 30 were positive for MRSA. Vital Signs: Vital Signs Temp Pulse Resp BP Pulse Ox O2 Del Method O2 Flow Rate 97.6 F L 91 19 H 109/54 L 97 Nasal Cannula 4 08/31/21 04:00 08/31/21 05:45 08/31/21 05:45 08/31/21 05:45 08/31/21 05:45 08/31/21 05:00 08/31/21 05:00 FiO2 35 08/31/21 01:00 Oxygen Flow Rate (L/min) 4 Oxygen Delivery Method Nasal Cannula Weight: 153 lb 14.122 oz Body Mass Index (BMI) 24.5 Intake & Output: Intake and Output for Last 24 Hours 08/29/21 08/30/21 08/31/21 23:59 23:59 23:59 Intake Total 625 / 725 1541.76 / 1543.16 232.37 / 232.37 Output Total 0 / 3000 5000 / 5000 Balance 625 / -2275 -3458.24 / -3456.84 232.37 / 232.37 Lab / Micro Data Attestation: I reviewed the patient's lab results. Result Diagrams: 08/31/21 03:30 08/31/21 03:30 Labs: Laboratory Results - last 24 hr 08/29/21 00:15: Diff Path Review Reviewed 08/30/21 06:55: Blood Type AB POSITIVE, Antibody Screen NEGATIVE 08/30/21 06:55: Crossmatch See Detail 08/30/21 08:57: Total Bilirubin 0.50, Direct Bilirubin 0.23, AST 13 L, ALT 13 L, Alkaline Phosphatase 446 H, Total Protein 4.5 L, Albumin 1.9 L, Globulin 2.6 08/30/21 08:57: Lactic Acid 2.2 H* 08/30/21 09:07: MRSA (PCR) Negative 08/30/21 11:40: Ammonia 33.0 H 08/31/21 03:30: WBC 16.7 H, RBC 3.29 L, Hgb 9.9 L, Hct 31.2 L, MCV 94.8 H, MCH 30.1, MCHC 31.7 L D, RDW Std Deviation 64.7 H, RDW Coeff of Neetu 18.7 H, Plt Count 288, MPV 9.8, Immature Gran % (Auto) 1.700 H, Neut % (Auto) 85.1 H, Lymph % (Auto) 3.4 L, [place] % (Auto) 9.2, Eos % (Auto) 0.3, Baso % (Auto) 0.3, Absolute Neuts (auto) 14.2 H, Absolute Lymphs (auto) 0.57 L, Nucleated RBC % 0.1, Diff Path Review May , Anisocytosis 2+, Macrocytosis 1+ 08/31/21 03:30: Sodium 136, Potassium 3.3 L, Chloride 97 L, Carbon Dioxide 29.0, Anion Gap 10, BUN 35 H, Creatinine 1.93 H, Estim Creat Clear Calc 34.46, Est GFR (MDRD) Af Amer 45 L, Est GFR (MDRD) Non-Af 37 L, BUN/Creatinine Ratio 18.1, G lucose 64 L, Calcium 8.7 Micro: Microbiology 08/30/21 07:00 Blood Culture (Wb) - Pic Bacteria Detection (PCR) - Prelimi nary Staphylococcus aureus 08/30/21 07:00 Blood Culture (Wb) - Pic Blood Culture - Preliminary 08/30/21 07:25 Blood Culture (Wb) - Anticubital Right Blood Culture - Preliminary ABG Data ABG results: ABG 08/29/21 08:04 Specimen Type ART Sample Site R Radial pH 7.32 L Bicarbonate Actual 27.3 H Total CO2 29 Base Excess 1 O2 Saturation 87 L O2 % 50 ABG pCO2 52.8 H ABG pO2 58 L Rodrigo Test Positive O2 Delivery Device BiPAP POC PEEP 7 Radiography Diagnostic Testing: Radiology Impression Echocardiogram 08/29/21 04:02 Interpretation Summary Normal LV size. Left ventricular systolic function is normal. Moderate eccentric left ventricular hypertrophy. The estimated ejection fraction is 60 %. Mild (1+) eccentric mitral valve insufficiency. Pulmonary artery systolic pressure is 38 mmHg. Ordering Physician: Nick Rinaldi Referring Physician: Sb Umaña Performed By: Nadja Shirley RDCS Venous Doppler Study 08/29/21 09:12 Interpretation Summary Deep veins of the right lower extremity are patent and compressible segmentally. There is no evidence of right lower extremity deep vein thrombosis. The right great saphenous vein appears patent and compressible segmentally. Deep veins of the left lower extremity are patent and compressible segmentally. There is no evidence of left lower extremity deep vein thrombosis. The left great saphenous vein appears patent and compressible segmentally. Ordering Physician: Kanu Chan Performed By: Myke Monahan RVT Venous Doppler Study 08/29/21 09:12 Interpretation Summary Deep veins of the left upper extremity are patent and compressible segmentally. There is no evidence of deep vein thrombosis. There is no evidence of left upper extremity deep vein thrombosis. Ordering Physician: Kanu Chan Performed By: Myke Monahan RVT ? A/V Fistula Ultrasound 08/29/21 09:17 Interpretation Summary Patent left brachio-cephalic fistula with normal velocities and satisfactory flow volumes. Mid segment of fistula enlarged to 28 mm Ordering Physician: Kanu Chan Performed By: Hero, Myke, RVT X-Ray 08/30/21 08:31 IMPRESSION: The tip of the feeding tube is in the third portion of the duodenum adjacent to the ligament of Treitz. Electronically Signed: Zackery Kent MD at 9:58 EDT , Chest X-Ray 08/30/21 09:30 IMPRESSION: Progressive bilateral pulmonary infiltrates and small bilateral pleural effusions slightly more prominent on the right side. Electronically Signed: Zackery Kent MD at 9:59 EDT , Rhythm Strip Rhythm Strip: Sinus Tach Rate: 104 Physical Exam Const alert Constitutional Narrative: Chronically ill in appearance. General Appearance: cooperative Orientation / Consciousness: lethargic HEENT normocephalic and head/scalp atraumatic HEENT Narrative: Corpak currently in place. Teeth and Gingiva: poor dentition Eyes PERRL and EOMs intact bilaterally Neck supple General: trachea midline Chest inspection of chest normal Resp Resp Narrative: Coarse rhonchi noted bilaterally. Effort and Inspection: tachypneic Cardio regular rate and regular rhythm GI soft to palpation and non-tender Inspection: abdominal distention Extremity General Extremity: edema; Negative for clubbing Skin no rashes or lesions noted Neuro CN's II-XII intact bilaterally and no focal motor deficits Psych Mood & Affect: flat affect Charges/Coding Procedures Hospitalists Procedures: 78799 Critial Care 1st Hr
[2021-08-31] MEDS: Ursodiol 250 MG Tablet PO ×3 (07:48→17:26)
[2021-08-31] MEDS: Allopurinol 100 MG Tablet PO (07:48)
[2021-08-31] MEDS: Multivitamins,Ther W-Minerals Tablet 1 TABLET PO (07:48)
[2021-08-31] MEDS: Midodrine HCl 5 MG Tablet 10 MG PO ×3 (07:48→17:26)
[2021-08-31 10:00] LABS: Pathologist Review Reviewed
[2021-08-31] MEDS: ARIPiprazole 2 MG Tablet PO (10:24)
[2021-08-31] MEDS: Cholecalciferol (VIT D3) 25 MCG TABLET (1,000 UNITS) PO (10:24)
[2021-08-31] MEDS: Tacrolimus Anhydrous 1 MG Capsule PO ×2 (10:24→21:52)
[2021-08-31] MEDS: Amiodarone 200 MG Tablet PO (10:24)
--- NOTE | 2021-08-31 10:44 | CT_ITS ---
STUDY: CT CHEST, ABDOMEN T PELVIS WITHOUT CONTRAST REASON FOR EXAM: Male, 71 years old. pneumonia, renal disease, cirrhosis RADIATION DOSAGE (If Supplied By Facility): CTDIvol = ( 20.23 ) mGy, DLP = ( 1829.37 ) mGycm TECHNIQUE: Transaxial imaging was performed without the administration of intravenous contrast material. Individualized dose optimization techniques were used for this CT. COMPARISON: No relevant priors. FINDINGS: CHEST A right-sided central line is seen with the tip in the superior vena cava. A feeding tube is seen with the tip in the duodenum. Dense consolidation in both lower lobes worse on the right side. Patchy infiltrate in the lingular segment of the left upper lobe as well as the right middle lobe. There is no demonstrated pleural abnormality. There are calcifications of the coronary arteries. Normal mediastinum. Normal hilar regions. Normal unenhanced pulmonary arteries. There is atherosclerotic calcification of the aortic arch with tortuosity and elongation of the aortic arch and descending thoracic aorta. Normal osseous structures. Perihepatic fluid. Perisplenic fluid. Soft tissue density seen within the peritoneal fat. Omental metastasis should be. ABDOMEN Perihepatic and perisplenic fluid. Diffuse ascites. The tip of the feeding tube is in the third portion of the duodenum. Surgical clips are seen in the hepatic portal region. Soft tissue density seen in the anterior peritoneal fat in the upper abdomen. The gallbladder is not seen most likely secondary to prior cholecystectomy. Normal spleen. There is diffuse atrophy of the pancreas. Normal bilateral adrenal glands. Atrophy of both kidneys. Normal visualized stomach. Normal small intestine. There are multiple colonic diverticula consistent with diverticulosis. The appendix is visualized and appears normal. There is diffuse atherosclerotic calcification of the abdominal aorta, without a demonstrated aneurysm. Normal inferior vena cava. Normal retroperitoneum. Diffuse subcutaneous edema. There are degenerative changes of the visualized lumbar spine. Mild anterior listhesis of L4 on L5. Mild retrolisthesis of L5 on S1 with disc space narrowing and spondylosis. Straightening of the normal lumbar lordosis. PELVIS Normal urinary bladder. Left hydrocele. There is diffuse atherosclerotic calcification of the pelvic arteries. CT/CT Chest, Abd, Pelvis WO Cont IMPRESSION: Dense consolidation in both lower lobes with patchy infiltrates in the lingular segment of the left upper lobe and right middle lobe. Diffuse ascites. Soft tissue density seen in the anterior peritoneal fat in the upper abdomen. Omental metastasis should be ruled out. Electronically Signed: Zackery Kent MD at 12:05 EDT ,
--- NOTE | 2021-08-31 10:47 | PCM.CONS.GEN ---
Assessment & Plan Assessment/Plan (1) History of liver transplant: (2) MRSA bacteremia: (3) Dependence on renal dialysis: (4) Septic shock: PLAN: septic shock with MRSA bacteremia per pcr and multifocal pneumonia. H/o liver transplant and ESRD. Reviewed [facility] records, recent long admit for covid, complicated by recurrent pneumonia, peritonitis, and RP abscess. Splinter hemorrhage on R 2nd finger. TTE here showed no veg. Recommend permacath removal, then repeat bcx later today. Will check CT abd/pelvis/chest without contrast. Cont vanc/dalia for now. Would consider transfer to [facility]. Will follow, thank you, d/w Dr. Gibson HPI Consult Data Date of Consult: 08/31/21 HPI Narrative HPI Narrative: MUSA LOPEZ, is a 71 M with h/o liver transplant in 2010 and hep C/hep B. Recent admit to [facility] 06/06 to 08/21. Initially admitted for covid. Course complicated by: afib with RVR klebsiella pneumonia abnormal LFTs, had ERCP 06/24, stent placed, then liver biopsy aspiration pneumonia treated with zosyn peritonitis on 07/18, treated with ceftriaxone x5 days 07/24 found to have RP abscess, IR aspiration done 07/26, cx with ESBL ecoli, enterococcus, and clif. Completed vanc/erta/fluc on 08/17. Presented here 08/29 with acute onset dyspnea, altered mental status. Has R chest permacath. Thought to be fluid overload, admitted to icu with ceftriaxone. On 08/30, BP worsened, started on pressors, bcx sent, abx changed to vanc/dalia. Now bcx with MRSA per pcr. Pt feeling ok, c/o dyspnea, cough with sputum. No new joint/back pain, no issues with permacath. Full ROS performed and neg except as noted above. [facility] Medical History Anemia Anxiety Chronic kidney disease Chronic respiratory failure Cirrhosis Depression Dialysis patient Gout Hx of gastroesophageal reflux (GERD) Liver cell carcinoma Paroxysmal A-fib Type 2 diabetes mellitus Home Medications Therapeutic M 1 tab NG DAILY supplement 08/29/21 [History Last Taken Unknown] albuterol sulfate 0.63 mg/3 mL solution for nebulization 0.63 mg inhalation Q4H PRN Shortness Of Breath 08/29/21 [History Last Taken Unknown] alendronate 70 mg tablet 70 mg PO QWEEK supplement 08/29/21 [History Last Taken Unknown] allopurinol 100 mg tablet 100 mg PO DAILY gout 08/29/21 [History Last Taken Unknown] amiodarone 200 mg tablet 200 mg PO DAILY heart rate 08/29/21 [History Last Taken Unknown] apixaban 5 mg tablet 5 mg PO BID blood thinner 08/29/21 [History Last Taken Unknown] aripiprazole 2 mg tablet 2 mg PO DAILY depression 08/29/21 [History Last Taken Unknown] cetirizine 10 mg tablet 10 mg PO DAILY allergies 08/29/21 [History Last Taken Unknown] cholecalciferol (vitamin D3) 25 mcg (1,000 unit) tablet 25 mcg PO DAILY supplement 08/29/21 [History Last Taken Unknown] darbepoetin ismael in polysorbat 60 mcg/mL in polysorbate injection 60 mcg subcut QWEEK renal failure 08/29/21 [History Last Taken Unknown] entecavir 0.5 mg tablet 0.5 mg PO QWEEK liver failure 08/29/21 [History Last Taken Unknown] lactulose 20 gram/30 mL oral solution 20 g PO BID liver failure 08/29/21 [History Last Taken Unknown] melatonin 3 mg tablet 3 mg PO QHS sleep 08/29/21 [History Last Taken Unknown] metoprolol succinate 25 mg tablet,extended release 24 hr 25 mg PO DAILY heart rate/blood pressure 08/29/21 [History Last Taken Unknown] midodrine 10 mg tablet mg low BP 08/29/21 [History Last Taken Unknown] oxycodone 5 mg capsule 5 mg PO Q6H PRN Pain 08/29/21 [History Last Taken Unknown] pantoprazole 40 mg tablet,delayed release 40 mg PO QHS protonix 08/29/21 [History Last Taken Unknown] sodium chloride 0.65 % nasal spray aerosol ([place] Nasal) 2 spray intranasal Q4H PRN Dry Nasal Passages 08/29/21 [History Last Taken Unknown] tacrolimus 1 mg capsule, immediate-release 1 mg PO Q12H liver failure 08/29/21 [History Last Taken Unknown] timolol maleate 0.5 % once daily eye drops 1 drp EACH EYE DAILY glaucoma 08/29/21 [History Last Taken Unknown] ursodiol 300 mg capsule 300 mg PO TID liver failure 08/29/21 [History Last Taken Unknown] vitamin E 268 mg (400 unit) capsule 268 mg PO DAILY supplement 08/29/21 [History Last Taken Unknown] Allergy/AdvReac Type Severity Reaction Status Date / Time hydrocodone Allergy PT UNSURE Verified 08/29/21 00:07 OF REACTION levofloxacin [From Levaquin] Allergy PT UNSURE Verified 08/29/21 00:07 OF REACTION prochlorperazine Allergy Hives Verified 08/29/21 00:07 [From Compazine] aspirin AdvReac Other Verified 08/29/21 00:07 codeine AdvReac Nausea Verified 08/29/21 00:07 ibuprofen AdvReac Other Verified 08/29/21 00:07 Family History Other CVA (cerebral vascular accident) Surgical History Liver transplant recipient Social History Smoking Status: Former smoker Physical Exam Const alert Constitutional Narrative: ill appearing General Appearance: lethargic HEENT normocephalic and head/scalp atraumatic Eyes PERRL and EOMs intact bilaterally Neck supple and No nodes Resp Auscultation: rhonchi Cardio Rate: tachycardic GI soft to palpation, non-tender and non-distended Extremity Extremity Narrative: No focal joint pain/swelling/warmth General Extremity: edema Skin Skin Narrative: Splinter hemorrhage on R 2nd finger. No inflammation around permacath Neuro CN's II-XII intact bilaterally Lab / Micro Data Attestation: I reviewed the patient's lab results. Result Diagrams: 08/31/21 03:30 08/31/21 03:30 Labs: Laboratory Results - last 24 hr 08/29/21 00:15: Diff Path Review Reviewed 08/30/21 06:55: Crossmatch See Detail 08/30/21 09:07: MRSA (PCR) Negative 08/30/21 11:40: Ammonia 33.0 H 08/31/21 03:30: WBC 16.7 H, RBC 3.29 L, Hgb 9.9 L, Hct 31.2 L, MCV 94.8 H, MCH 30.1, MCHC 31.7 L D, RDW Std Deviation 64.7 H, RDW Coeff of Neetu 18.7 H, Plt Count 288, MPV 9.8, Immature Gran % (Auto) 1.700 H, Neut % (Auto) 85.1 H, Lymph % (Auto) 3.4 L, [place] % (Auto) 9.2, Eos % (Auto) 0.3, Baso % (Auto) 0.3, Absolute Neuts (auto) 14.2 H, Absolute Lymphs (auto) 0.57 L, Nucleated RBC % 0.1, Diff Path Review Reviewed, Anisocytosis 2+, Macrocytosis 1+ 08/31/21 03:30: Sodium 136, Potassium 3.3 L, Chloride 97 L, Carbon Dioxide 29.0, Anion Gap 10, BUN 35 H, Creatinine 1.93 H, Estim Creat Clear Calc 34.46, Est GFR (MDRD) Af Amer 45 L, Est GFR (MDRD) Non-Af 37 L, BUN/Creatinine Ratio 18.1, Glucose 64 L, Calcium 8.7 Micro: Microbiology 08/30/21 07:00 Blood Culture (Wb) - Pic Bacteria Detection (PCR) - Final Staphylococcus aureus 08/30/21 07:00 Blood Culture (Wb) - Pic Blood Culture - Preliminary 08/30/21 07:25 Blood Culture (Wb) - Anticubital Right Blood Culture - Preliminary Rhythm Strip Rhythm Strip: Sinus Tach Rate: 104 Radiology Impression Echocardiogram 08/29/21 04:02 Interpretation Summary Normal LV size. Left ventricular systolic function is normal. Moderate eccentric left ventricular hypertrophy. The estimated ejection fraction is 60 %. Mild (1+) eccentric mitral valve insufficiency. Pulmonary artery systolic pressure is 38 mmHg. Ordering Physician: Nick Rinaldi Referring Physician: Sb Umaña Performed By: Nadja Shirley RDCS Venous Doppler Study 08/29/21 09:12 Interpretation Summary Deep veins of the right lower extremity are patent and compressible segmentally. There is no evidence of right lower extremity deep vein thrombosis. The right great saphenous vein appears patent and compressible segmentally. Deep veins of the left lower extremity are patent and compressible segmentally. There is no evidence of left lower extremity deep vein thrombosis. The left great saphenous vein appears patent and compressible segmentally. Ordering Physician: Kanu Chan Performed By: Myke Monahan RVT Venous Doppler Study 08/29/21 09:12 Interpretation Summary Deep veins of the left upper extremity are patent and compressible segmentally. There is no evidence of deep vein thrombosis. There is no evidence of left upper extremity deep vein thrombosis. Ordering Physician: Kanu Chan Performed By: Myke Monahan RVT ? A/V Fistula Ultrasound 08/29/21 09:17 Interpretation Summary Patent left brachio-cephalic fistula with normal velocities and satisfactory flow volumes. Mid segment of fistula enlarged to 28 mm Ordering Physician: Kanu Chan Performed By: Myke Monahan RVT
--- NOTE | 2021-08-31 11:20 | PN.RENAL_ITS ---
Subjective Subjective Remains on low-dose Levophed Now positive for bacteremia Objective Data Objective Data Vital Signs: Vital Signs Temp Pulse Resp BP Pulse Ox O2 Del Method O2 Flow Rate 97.6 F L 86 21 H 119/57 L 94 Nasal Cannula 2 08/31/21 04:00 08/31/21 08:00 08/31/21 07:00 08/31/21 07:00 08/31/21 10:57 08/31/21 08:00 08/31/21 10:57 FiO2 35 08/31/21 01:00 Oxygen Flow Rate (L/min) 2 Oxygen Delivery Method Nasal Cannula Weight: 69.8 kg Body Mass Index (BMI) 24.5 Intake & Output: Intake and Output for Last 24 Hours 08/29/21 08/30/21 08/31/21 23:59 23:59 23:59 Intake Total 625 / 725 1541.76 / 1543.16 312.12 / 312.12 Output Total 0 / 3000 5000 / 5000 Balance 625 / -2275 -3458.24 / -3456.84 312.12 / 312.12 Lab / Micro Data Attestation: I reviewed the patient's lab results. Result Diagrams: 08/31/21 03:30 08/31/21 03:30 Labs: Laboratory Results - last 24 hr 08/29/21 00:15: Diff Path Review Reviewed 08/30/21 06:55: Crossmatch See Detail 08/30/21 09:07: MRSA (PCR) Negative 08/30/21 11:40: Ammonia 33.0 H 08/31/21 03:30: WBC 16.7 H, RBC 3.29 L, Hgb 9.9 L, Hct 31.2 L, MCV 94.8 H, MCH 30.1, MCHC 31.7 L D, RDW Std Deviation 64.7 H, RDW Coeff of [place]etu 18.7 H, Plt Count 288, MPV 9.8, Immature Gran % (Auto) 1.700 H, Neut % (Auto) 85.1 H, Lymph % (Auto) 3.4 L, [place] % (Auto) 9.2, Eos % (Auto) 0.3, Baso % (Auto) 0.3, Absolute Neuts (auto) 14.2 H, Absolute Lymphs (auto) 0.57 L, Nucleated RBC % 0.1, Diff Path Review Reviewed, Anisocytosis 2+, Macrocytosis 1+ 08/31/21 03:30: Sodium 136, Potassium 3.3 L, Chloride 97 L, Carbon Dioxide 29.0, Anion Gap 10, BUN 35 H, Creatinine 1.93 H, Estim Creat Clear Calc 34.46, Est GFR (MDRD) Af Amer 45 L, Est GFR (MDRD) Non-Af 37 L, BUN/Creatinine Ratio 18.1, Glucose 64 L, Calcium 8.7 Micro: Microbiology 08/30/21 07:00 Blood Culture (Wb) - Pic Bacteria Detection (PCR) - Final Staphylococcus aureus 08/30/21 07:00 Blood Culture (Wb) - Pic Blood Culture - Preliminary 08/30/21 07:25 Blood Culture (Wb) - Anticubital Right Blood Culture - Preliminary Radiography Diagnostic Testing: Radiology Impression Echocardiogram 08/29/21 04:02 Interpretation Summary Normal LV size. Left ventricular systolic function is normal. Moderate eccentric left ventricular hypertrophy. The estimated ejection fraction is 60 %. Mild (1+) eccentric mitral valve insufficiency. Pulmonary artery systolic pressure is 38 mmHg. Ordering Physician: Nick Rinaldi Referring Physician: Sb Umaña Performed By: Nadja Shirley RDCS Venous Doppler Study 08/29/21 09:12 Interpretation Summary Deep veins of the right lower extremity are patent and compressible segmentally. There is no evidence of right lower extremity deep vein thrombosis. The right great saphenous vein appears patent and compressible segmentally. Deep veins of the left lower extremity are patent and compressible segmentally. There is no evidence of left lower extremity deep vein thrombosis. The left great saphenous vein appears patent and compressible segmentally. Ordering Physician: Kanu Chan Performed By: Myke Monahan RVT Venous Doppler Study 08/29/21 09:12 Interpretation Summary Deep veins of the left upper extremity are patent and compressible segmentally. There is no evidence of deep vein thrombosis. There is no evidence of left upper extremity deep vein thrombosis. Ordering Physician: Kanu Chan Performed By: Myke Monahan RVT ? A/V Fistula Ultrasound 08/29/21 09:17 Interpretation Summary Patent left brachio-cephalic fistula with normal velocities and satisfactory flow volumes. Mid segment of fistula enlarged to 28 mm Ordering Physician: Kanu Chan Performed By: Myke Monahan RVT Rhythm Strip Rhythm Strip: Sinus Tach Rate: 104 Physical Exam Narrative Lethargic NG present Coarse breath sound anteriorly Abdomen distended pulse regular Significant peripheral edema Assessment & Plan Assessment/Plan (1) Chronic kidney failure: PLAN: -recent issues with completing HD; unclear if access issue or circuit hemodynamics -Patient had ultrafiltration yesterday of 3 L -Main issues remain volume overload -We will plan for hemodialysis today goals would be 2 to 3 L of ultrafiltration as tolerates -He will be getting blood transfusion with dialysis which will help -Continue with midodrine albumin 08/31 -Patient had dialysis yesterday, currently still on low-dose Levophed now bacteremic -Hold off on renal placement therapy today -Maintain on Monday schedule Discussed with ICU attending and primary team Thank you, please call [phone] with any concerns
[2021-08-31] MEDS: Nystatin Powder 15gm Bottle 1 APPLIC TOPICAL ×2 (12:38→21:51)
[2021-08-31] MEDS: Timolol 0.5% 5ML OPTH.BTL 1 DRP EACH EYE (12:39)
[2021-08-31] MEDS: NEPRO TUBE FEED 1,000 ML 50 ML GT (12:49)
--- NOTE | 2021-08-31 16:24 | EX.PCM.CON.S ---
Assessment & Plan Assessment/Plan (1) MRSA bacteremia: (2) Central line infection: PLAN: Plan This is a 71-year-old male with a complex past medical history who is currently admitted to the ICU for issues originally believed to be related to hypervolemia, but now appears to be septic from a MRSA bacteremia. He has a tunneled PICC line in place from his prior hospital stay, but alternative venous access has been established and he has a working fistula for hemodialysis. The catheter has a unremarkable appearance on exam, but given its potential as a source for his bacteremia it requires discontinuation. I would like to perform this in the operating room given that this catheter has been in place for some time and will likely require a counterincision to dissect out the subcutaneous cuff. Bedside nursing has been apprised of this plan and request has been made to hold patient from any enteral feeds past midnight tonight. HPI Consult Data Date of Consult: 08/31/21 HPI Narrative Reason for Consultation: Tunneled PICC line in setting of staph bacteremia HPI Narrative: MUSA TRUONG, is a 71 M with an exceptionally complex past medical history inclusive of prior liver transplant and ESRD on HD, who is admitted to [facility] ICU after a lengthy stay with the [facility] for problems related to pneumonia, SBP, and RP abscess initially for concerns of hypervolemia and hypotension. I have been asked to see the patient, however, because its been discovered he has a staph bacteremia and has a tunneled PICC line still in place from his prior hospital stay. Infectious disease has been consulted and notes that patient has a negative cardiac echo, but did request removal of permacath. It was initially reported that patient has required ongoing Levophed to maintain his blood pressures, however, bedside nursing reports this was weaned earlier today and patient's blood pressures have remained adequate but soft. For his part, Mr. Truong is a poor historian and unable to tell me how long his tunneled catheter has been placed or what the original indication was for its placement. I am also informed that he normally dialyzes Monday and does so via a functional left brachiocephalic fistula. [facility] Medical History Anemia Anxiety Chronic kidney disease Chronic respiratory failure Cirrhosis Depression Dialysis patient Gout Hx of gastroesophageal reflux (GERD) Liver cell carcinoma Paroxysmal A-fib Type 2 diabetes mellitus Home Medications Therapeutic M 1 tab NG DAILY supplement 08/29/21 [History Last Taken Unknown] albuterol sulfate 0.63 mg/3 mL solution for nebulization 0.63 mg inhalation Q4H PRN Shortness Of Breath 08/29/21 [History Last Taken Unknown] alendronate 70 mg tablet 70 mg PO QWEEK supplement 08/29/21 [History Last Taken Unknown] allopurinol 100 mg tablet 100 mg PO DAILY gout 08/29/21 [History Last Taken Unknown] amiodarone 200 mg tablet 200 mg PO DAILY heart rate 08/29/21 [History Last Taken Unknown] apixaban 5 mg tablet 5 mg PO BID blood thinner 08/29/21 [History Last Taken Unknown] aripiprazole 2 mg tablet 2 mg PO DAILY depression 08/29/21 [History Last Taken Unknown] cetirizine 10 mg tablet 10 mg PO DAILY allergies 08/29/21 [History Last Taken Unknown] cholecalciferol (vitamin D3) 25 mcg (1,000 unit) tablet 25 mcg PO DAILY supplement 08/29/21 [History Last Taken Unknown] darbepoetin ismael in polysorbat 60 mcg/mL in polysorbate injection 60 mcg subcut QWEEK renal failure 08/29/21 [History Last Taken Unknown] entecavir 0.5 mg tablet 0.5 mg PO QWEEK liver failure 08/29/21 [History Last Taken Unknown] lactulose 20 gram/30 mL oral solution 20 g PO BID liver failure 08/29/21 [History Last Taken Unknown] melatonin 3 mg tablet 3 mg PO QHS sleep 08/29/21 [History Last Taken Unknown] metoprolol succinate 25 mg tablet,extended release 24 hr 25 mg PO DAILY heart rate/blood pressure 08/29/21 [History Last Taken Unknown] midodrine 10 mg tablet mg low BP 08/29/21 [History Last Taken Unknown] oxycodone 5 mg capsule 5 mg PO Q6H PRN Pain 08/29/21 [History Last Taken Unknown] pantoprazole 40 mg tablet,delayed release 40 mg PO QHS protonix 08/29/21 [History Last Taken Unknown] sodium chloride 0.65 % nasal spray aerosol ([place] Nasal) 2 spray intranasal Q4H PRN Dry Nasal Passages 08/29/21 [History Last Taken Unknown] tacrolimus 1 mg capsule, immediate-release 1 mg PO Q12H liver failure 08/29/21 [History Last Taken Unknown] timolol maleate 0.5 % once daily eye drops 1 drp EACH EYE DAILY glaucoma 08/29/21 [History Last Taken Unknown] ursodiol 300 mg capsule 300 mg PO TID liver failure 08/29/21 [History Last Taken Unknown] vitamin E 268 mg (400 unit) capsule 268 mg PO DAILY supplement 08/29/21 [History Last Taken Unknown] Allergy/AdvReac Type Severity Reaction Status Date / Time hydrocodone Allergy PT UNSURE Verified 08/29/21 00:07 OF REACTION levofloxacin [From Levaquin] Allergy PT UNSURE Verified 08/29/21 00:07 OF REACTION prochlorperazine Allergy Hives Verified 08/29/21 00:07 [From Compazine] aspirin AdvReac Other Verified 08/29/21 00:07 codeine AdvReac Nausea Verified 08/29/21 00:07 ibuprofen AdvReac Other Verified 08/29/21 00:07 Family History Other CVA (cerebral vascular accident) Surgical History Liver transplant recipient Social History Smoking Status: Former smoker Physical Exam Const Constitutional Narrative: Patient appears drowsy and requires frequent reorientation during conversation. HEENT HEENT Narrative: [place] to left nostril Chest Chest Narrative: Right side tunneled PICC line without surrounding erythema or drainage from about the tunneling site. Light traction on the line confirms that it is anchored in its subcutaneous tunnel Resp normal respiratory effort GI GI Narrative: Protuberant abdomen with multiple healed incisions including a midline laparotomy. Lab / Micro Data Result Diagrams: 08/31/21 03:30 08/31/21 03:30 Labs: Laboratory Results - last 24 hr 08/30/21 06:55: Crossmatch See Detail 08/31/21 03:30: WBC 16.7 H, RBC 3.29 L, Hgb 9.9 L, Hct 31.2 L, MCV 94.8 H, MCH 30.1, MCHC 31.7 L D, RDW Std Deviation 64.7 H, RDW Coeff of [place] 18.7 H, Plt Count 288, MPV 9.8, Immature Gran % (Auto) 1.700 H, Neut % (Auto) 85.1 H, Lymph % (Auto) 3.4 L, [place] % (Auto) 9.2, Eos % (Auto) 0.3, Baso % (Auto) 0.3, Absolute Neuts (auto) 14.2 H, Absolute Lymphs (auto) 0.57 L, Nucleated RBC % 0.1, Diff Path Review Reviewed, Anisocytosis 2+, Macrocytosis 1+ 08/31/21 03:30: Sodium 136, Potassium 3.3 L, Chloride 97 L, Carbon Dioxide 29.0, Anion Gap 10, BUN 35 H, Creatinine 1.93 H, Estim Creat Clear Calc 34.46, Est GFR (MDRD) Af Amer 45 L, Est GFR (MDRD) Non-Af 37 L, BUN/Creatinine Ratio 18.1, Glucose 64 L, Calcium 8.7 Micro: Microbiology 08/30/21 07:00 Blood Culture (Wb) - Pic Bacteria Detection (PCR) - Final Staphylococcus aureus 08/30/21 07:00 Blood Culture (Wb) - Pic Blood Culture - Preliminary Staphylococcus aureus 08/30/21 07:25 Blood Culture (Wb) - Anticubital Right Blood Culture - Preliminary Rhythm Strip Rhythm Strip: Sinus Tach Rate: 104 Radiology Impression Aorta Iliac Vascular Ultrasound 08/29/21 09:12 Interpretation Summary Abdominal aorta patent, normal caliber with normal velocities Bilateral iliac arteries patent, normal caliber with normal velocities Ordering Physician: Kanu Chan Performed By: Myke Monahan, RVT Chest/Abdomen/Pelvis CT 08/31/21 10:44 IMPRESSION: Dense consolidation in both lower lobes with patchy infiltrates in the lingular segment of the left upper lobe and right middle lobe. Diffuse ascites. Soft tissue density seen in the anterior peritoneal fat in the upper abdomen. Omental metastasis should be ruled out. Electronically Signed: Zackery Kent MD at 12:05 EDT , Charges/Coding Visit Charges Inpatient E&M: 21758 Init Hosp L2
--- NOTE | 2021-08-31 17:13 | PN.HOSP_ITS ---
Subjective Subjective Patient was seen and examined today, he continues to be on pressors at this time, blood cultures are positive for staph aureus. On examination today, patient states that he is not in any pain and is comfortable. Objective Data Objective Data Vital Signs: Vital Signs Temp Pulse Resp BP Pulse Ox O2 Del Method O2 Flow Rate 97.9 F 89 18 100/50 L 99 Nasal Cannula 4 08/31/21 16:00 08/31/21 17:00 08/31/21 17:00 08/31/21 17:00 08/31/21 17:00 08/31/21 17:00 08/31/21 17:00 FiO2 35 08/31/21 01:00 Oxygen Flow Rate (L/min) 4 Oxygen Delivery Method Nasal Cannula Weight: 69.8 kg Body Mass Index (BMI) 24.5 Intake & Output: Intake and Output for Last 24 Hours 08/29/21 08/30/21 08/31/21 23:59 23:59 23:59 Intake Total 625 / 725 1541.76 / 1543.16 581.17 / 581.17 Output Total 0 / 3000 5000 / 5000 Balance 625 / -2275 -3458.24 / -3456.84 581.17 / 581.17 Lab / Micro Data Result Diagrams: 08/31/21 03:30 08/31/21 03:30 Labs: Laboratory Results - last 24 hr 08/30/21 06:55: Crossmatch See Detail 08/31/21 03:30: WBC 16.7 H, RBC 3.29 L, Hgb 9.9 L, Hct 31.2 L, MCV 94.8 H, MCH 30.1, MCHC 31.7 L D, RDW Std Deviation 64.7 H, RDW Coeff of Neetu 18.7 H, Plt Count 288, MPV 9.8, Immature Gran % (Auto) 1.700 H, Neut % (Auto) 85.1 H, Lymph % (Auto) 3.4 L, [place] % (Auto) 9.2, Eos % (Auto) 0.3, Baso % (Auto) 0.3, Absolute Neuts (auto) 14.2 H, Absolute Lymphs (auto) 0.57 L, Nucleated RBC % 0.1, Diff Path Review Reviewed, Anisocytosis 2+, Macrocytosis 1+ 08/31/21 03:30: Sodium 136, Potassium 3.3 L, Chloride 97 L, Carbon Dioxide 29.0, Anion Gap 10, BUN 35 H, Creatinine 1.93 H, Estim Creat Clear Calc 34.46, Est GFR (MDRD) Af Amer 45 L, Est GFR (MDRD) Non-Af 37 L, BUN/Creatinine Ratio 18.1, Glucose 64 L, Calcium 8.7 Micro: Microbiology 08/30/21 07:00 Blood Culture (Wb) - Pic Bacteria Detection (PCR) - Final Staphylococcus aureus 08/30/21 07:00 Blood Culture (Wb) - Pic Blood Culture - Preliminary Staphylococcus aureus 08/30/21 07:25 Blood Culture (Wb) - Anticubital Right Blood Culture - Preliminary Radiography Diagnostic Testing: Radiology Impression Aorta Iliac Vascular Ultrasound 08/29/21 09:12 Interpretation Summary Abdominal aorta patent, normal caliber with normal velocities Bilateral iliac arteries patent, normal caliber with normal velocities Ordering Physician: Kanu Chan Performed By: Myke Monahan, T Chest/Abdomen/Pelvis CT 08/31/21 10:44 IMPRESSION: Dense consolidation in both lower lobes with patchy infiltrates in the lingular segment of the left upper lobe and right middle lobe. Diffuse ascites. Soft tissue density seen in the anterior peritoneal fat in the upper abdomen. Omental metastasis should be ruled out. Electronically Signed: Zackery Kent MD at 12:05 EDT , Rhythm Strip Rhythm Strip: Sinus Tach Rate: 104 Physical Exam Const alert and no apparent distress Constitutional Narrative: Patient appears older than stated age, patient has a nasal feeding tube in place General Appearance: cooperative, well kempt and well developed Orientation / Consciousness: awake, oriented to person, oriented to place and oriented to time HEENT normocephalic, head/scalp atraumatic and moist oral mucous membranes Eyes PERRL, EOMs intact bilaterally and conjunctivae normal Neck supple, no JVD and thyroid normal General: trachea midline Resp normal respiratory effort, no retractions, no use of accessory muscles and clear to auscultation bilaterally Auscultation: Negative for rales, rhonchi or wheezes Cardio regular rate, regular rhythm, S1 normal heart sound, S2 normal heart sound, no murmurs, no rub and no gallops GI normal to inspection, nondistended, normoactive bowel sounds, soft to palpation, non-tender and non-distended Extremity no clubbing, cyanosis or edema Extremity Narrative: Very severe lower extremity edema is noted bilaterally Skin no rashes or lesions noted General Skin Exam: no breakdown Neuro CN's II-XII intact bilaterally, no focal motor deficits and no sensory deficits noted Sensorium / Orientation: awake and alert Speech: speech normal Psych affect normal Psych Narrative: Patient's affect is flat Assessment & Plan Assessment/Plan (1) History of liver transplant: PLAN: Plan 1. Acute on chronic hypoxic respiratory failure-patient is currently on nasal cannula oxygen, he is being followed by critical care, patient will continue dialysis today #2 septic shock-etiology unclear, could be secondary to relative intravascular depletion and third spacing, patient is currently on pressor agents and midodrine. #3 chronic anemia-secondary to end-stage renal disease and chronic liver disease, hemoglobin is 9.9 today #4 end-stage renal disease on hemodialysis-patient is being seen by nephrology #5 chronic debility secondary to prolonged recent hospitalization in [facility], patient will be seen by PT and OT, he will need to return [facility] facility at the conclusion of his hospitalization #6 paroxysmal atrial fibrillation-patient is on Eliquis and amiodarone #7 dysphagia-etiology unclear, patient is at high risk for aspiration, speech therapy will see the patient during his hospitalization #8 congestive heart failure with preserved ejection fraction-this was probably exacerbated by lack of dialysis recently at the [facility], patient is echocardiogram shows a normal EF with no significant valvular heart disease. Continue dialysis at this time. Overall prognosis for this patient is extremely guarded, patient has multiple severe medical problems. Charges/Coding Visit Charges Inpatient E&M: 53066 Subs Hosp L2
[2021-08-31] MEDS: MELATONIN 3 MG TABLET PO (21:50)
[2021-09-01] VITALS (31 sets, daily range): BP systolic 97–136; BP diastolic 51–75; PULSE 75–117; RESP 12–27; TEMP 36.6–37.1; O2SAT 91–100; BMI 24.5
--- NOTE | 2021-09-01 06:41 | PN.CC_ITS ---
Assessment & Plan Assessment/Plan (1) Respiratory failure: PLAN: Plan RECOMMENDATIONS: 1. Continue antimicrobials per ID recommendations. 2. Plans to remove tunneled central line today. 3. Ongoing hemodialysis support per nephrology recommendations. 4. Continue to hold Eliquis for now. 5. Continue PPI therapy twice daily. 6. Continue to monitor H&H daily. Transfuse if hemoglobin drops below 7 g/dL. 7. Nutritional support via NG tube. Speech therapy is following. 8. Potassium repletion as ordered. 9. Aggressive physical therapy. 10. Goals of care discussion with the patient and family. IMPRESSIONS: 1. Acute on chronic hypoxemic respiratory failure Likely multifactorial in etiology. Although hypervolemia in the setting of missed dialysis sessions is likely the culprit, the patient just had an extensive hospitalization at [facility], during which time, he was identified as being high risk for aspiration. Therefore, an underlying pulmonary infectious process is also a distinct possibility. His oxygenation status is stable. However, the patient has multifocal consolidations on imaging along with a weak cough. Continue aggressive bronchopulmonary hygiene. Antimicrobials will be continued per ID recommendations. Nutritional support via feeding tube will be continued. Continue to wean supplemental oxygen for saturations greater than 90%. 2. Septic shock The patient appears to have staph bacteremia. Although the definitive source is unclear, underlying pneumonia is a possibility. In light of the patient's recent hospitalization at [facility] with multiple sites of infection, infectious diseases is following to assist with antimicrobial management. For now, the patient will remain on empiric broad-spectrum antimicrobials. Continue scheduled midodrine. Plan to remove tunneled central line today and send for culture. 3. Anemia The patient has chronic anemia, which worsened at the time of his admission. The patient did receive packed red blood cells with subsequent stabilization in his blood counts. Continue to check H&H daily and transfuse if hemoglobin drops below 7 g/dL. Continue PPI twice daily as ordered. 4. End-stage renal disease on hemodialysis Nephrology is currently following to assist with hemodialysis needs. The patient routinely receives dialysis on a Monday, Monday, Monday schedule. 5. 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 The markus huertas was apparently discharged from [facility] on lactulose, which may have led to excessive GI losses. Tacrolimus levels are pending. 6. Recent prolonged hospitalization leading to debility/high aspiration risk status post Corpak placement The patient recently spent over 2 months at [facility] with a prolonged, complicated hospitalization. Ultimately, the patient was considered high risk for aspiration and a Corpak was placed. Speech therapy is currently following. Nutritional support via NG tube will be continued. 7. History of atrial fibrillation/diabetes mellitus Complicates care, management, recovery and prognosis. Continue to hold Eliquis for now. This note was generated with [employer] dictation software. It may contain incorrect words, spelling, and punctuation that were not noted in checking the note before signing. Subjective Subjective The patient was seen and examined at the bedside this morning. Events from the last 24 hours have been reviewed. The patient is currently afebrile, hemodynamically stable and maintaining appropriate oxygen saturations on BiPAP with an FiO2 requirement of 35%. In light of the patient's bacteremia, there are tentative plans for the patient's tunneled PICC line to be removed today by surgery. The patient's Levophed was able to be weaned off completely yesterday. He is currently tolerating nutritional support via NG tube. The patient continues to have a very weak cough and has been unable to expectorate any spu cara. Objective Data Objective Data The patient's most recent lab work, culture data and imaging studies have all been personally reviewed. Surface echocardiogram demonstrated moderate concentric LVH with an ejection fraction of 60%. Pulmonary artery systolic pressure was estimated to be 38 mmHg. Blood cultures dated August 30 were positive for MRSA. Vital Signs: Vital Signs Temp Pulse Resp BP Pulse Ox O2 Del Method O2 Flow Rate 98.7 F 89 17 105/57 L 96 Bi-pap 2 09/01/21 04:00 09/01/21 05:00 09/01/21 05:00 09/01/21 05:00 09/01/21 05:00 09/01/21 05:00 08/31/21 22:00 FiO2 35 09/01/21 05:00 Oxygen Flow Rate (L/min) 2 Oxygen Delivery Method Bi-pap Weight: 157 lb 13.616 oz Body Mass Index (BMI) 24.5 Intake & Output: Intake and Output for Last 24 Hours 08/30/21 08/31/21 09/01/21 23:59 23:59 23:59 Intake Total 1541.76 / 1543.16 1407.17 / 2066.34 759.17 / 759.17 Output Total 5000 / 5000 0 / 0 Balance -3458.24 / -3456.84 1407. / 2065.34 759.17 / 759.17 Lab / Micro Data Attestation: I reviewed the patient's lab results. Result Diagrams: 09/01/21 04:42 09/01/21 04:42 Labs: Laboratory Results - last 24 hr 08/31/21 03:30: Diff Path Review Reviewed Micro: Microbiology 08/30/21 07:00 Blood Culture (Wb) - Pic Bacteria Detection (PCR) - Final Staphylococcus aureus 08/30/21 07:00 Blood Culture (Wb) - Pic Blood Culture - Preliminary Staphylococcus aureus 08/30/21 07:25 Blood Culture (Wb) - Anticubital Right Blood Culture - Preliminary ABG Data ABG results: ABG 08/29/21 08:04 Specimen Type ART Sample Site R Radial pH 7.32 L Bicarbonate Actual 27.3 H Total CO2 29 Base Excess 1 O2 Saturation 87 L O2 % 50 ABG pCO2 52.8 H ABG pO2 58 L Rodrigo Test Positive O2 Delivery Device BiPAP POC PEEP 7 Radiography Diagnostic Testing: Radiology Impression Aorta Iliac Vascular Ultrasound 08/29/21 09:12 Interpretation Summary Abdominal aorta patent, normal caliber with normal velocities Bilateral iliac arteries patent, normal caliber with normal velocities Ordering Physician: Kanu Chan Performed By: Myke Monahan RVT Chest/Abdomen/Pelvis CT 08/31/21 10:44 IMPRESSION: Dense consolidation in both lower lobes with patchy infiltrates in the lingular segment of the left upper lobe and right middle lobe. Diffuse ascites. Soft tissue density seen in the anterior peritoneal fat in the upper abdomen. Omental metastasis should be ruled out. Electronically Signed: Zackery Kent MD at 12:05 EDT , Rhythm Strip Rhythm Strip: Sinus Tach Rate: 104 Physical Exam Const alert Constitutional Narrative: Chronically ill in appearance. More alert today. General Appearance: cooperative HEENT normocephalic and head/scalp atraumatic HEENT Narrative: Corpak currently in place. Teeth and Gingiva: poor dentition Eyes PERRL and EOMs intact bilaterally Neck supple General: trachea midline Chest inspection of chest normal Resp Resp Narrative: Coarse rhonchi noted bilaterally. Weak cough. Effort and Inspection: tachypneic Cardio regular rate and regular rhythm GI soft to palpation and non-tender Inspection: abdominal distention Extremity General Extremity: edema; Negative for clubbing Skin no rashes or lesions noted Neuro CN's II-XII intact bilaterally and no focal motor deficits Psych Mood & Affect: flat affect Charges/Coding Visit Charges Inpatient E&M: 08340 Subs Hosp L3
[2021-09-01 06:55] LABS: Absolute Lymphocyte Count 0.68 X10^3/uL (0.83-4.51); Absolute Neutrophil Count 16.3 X10^3/uL (2.0-7.7); Basophil# 0.06 X10^3/uL; Basophil% 0.3 % (0-1); Eosinophil# 0.11 X10^3/uL; Eosinophils% 0.6 % (0-5); Hematocrit 36.1 % (40-54); Hemoglobin 11.3 g/dL (13.0-16.5); Lymphocyte # 0.68 X10^3/ul (0.83-4.51); Lymphocyte % 3.6 % (19-41); Mean Corp Hgb Conc 31.3 g/dL (32-36); Mean Corpuscular Hgb 29.8 pg (27.0-32.0); Mean Corpuscular Volume 95.3 fL (80-94); Mean Platelet Vol. 10.1 fl (6.2-12.0); Monocyte# 1.27 X10^3/uL; Monocyte% 6.8 % (0-10); NRBC Flagged by Analyzer 0.1 % (0-5); Neutrophil # 16.31 X10^3/uL (2.7-7.7); Neutrophil % 87.2 % (47-70); Platelet Count 287 K/mm3 (150-450); RBC Distribution Width CV 18.8 % (11.6-14.6); Red Blood Count 3.79 M/mm3 (4.6-6.2); White Blood Count 18.7 K/mm3 (4.4-11.0)
[2021-09-01] MEDS: CHLORHEXIDINE GLUC 2% CLOTH 1 EACH TOWELETTE TOPICAL (07:00)
[2021-09-01 07:09] LABS: ALB/GLOB Ratio 0.7 RATIO (0.9-2.4); AST(SGOT) 16 U/L (15-37); Alanine Aminotransfer ALT/SGPT 14 U/L (16-61); Albumin, Serum 1.9 g/dL (3.2-5.0); Alkaline Phosphatase 669 U/L (45-117); Anion Gap 9 (5-15); BUN 46 mg/dL (7-18); BUN/Creat Ratio 17.6 RATIO (10-20); Calcium,Total 9.6 mg/dL (8.5-10.1); Chloride 96 mmol/L (98-107); Creatinine, Serum 2.62 mg/dL (0.70-1.30); EST Glomerular Filtration Rate 26 mL/min (>60); Est Glom Filt Rate - Afr Amer 31 mL/min (>60); Estimated Creatinine Clearance 25.38 ml/min; Globulin 2.6 g/dL (2.2-4.2); Glucose 122 mg/dL (74-106); Potassium 3.3 mmol/L (3.5-5.1); Protein, Total 4.5 g/dL (6.4-8.2); Sodium Level 134 mmol/L (136-145)
[2021-09-01] MEDS: Midodrine HCl 5 MG Tablet 10 MG PO ×2 (08:43→16:58)
[2021-09-01] MEDS: ARIPiprazole 2 MG Tablet PO (08:43)
[2021-09-01] MEDS: Tacrolimus Anhydrous 1 MG Capsule PO ×2 (08:43→21:48)
[2021-09-01] MEDS: Multivitamins,Ther W-Minerals Tablet 1 TABLET PO (08:43)
[2021-09-01] MEDS: Nystatin Powder 15gm Bottle 1 APPLIC TOPICAL ×2 (08:43→21:49)
[2021-09-01] MEDS: Ursodiol 250 MG Tablet PO ×2 (08:43→16:58)
[2021-09-01] MEDS: Amiodarone 200 MG Tablet PO (08:43)
[2021-09-01] MEDS: Allopurinol 100 MG Tablet PO (08:43)
[2021-09-01] MEDS: Cholecalciferol (VIT D3) 25 MCG TABLET (1,000 UNITS) PO (08:44)
[2021-09-01] MEDS: Timolol 0.5% 5ML OPTH.BTL 1 DRP EACH EYE (08:44)
--- NOTE | 2021-09-01 10:33 | CASEMGMT ---
Physician would like to talk with patient's son, Ronald. Physician asked BUCK if BUCK could set up a family meeting. SW called patient's son, Ronald and let him know physician would like to talk with him. BUCK asked Ronald if he could come into the hospital for a meeting. Ronald said he is in [place] so he will not be able to come into the hospital. Ronald said he would be happy to talk with physician. BUCK told Dr Gibson this information. He wanted to talk with both patient and his son at the same time, but he understands Ronald is not able to come to the hospital. Dr Gibson will talk with the patient and his son. Cori HODGES
[2021-09-01] MEDS: Potassium Chloride 10mEq/100mL 10 MEQ/100 ML IV.SOLN. 100 MEQ IV BOLUS ×2 (11:17→13:38)
--- NOTE | 2021-09-01 11:41 | PN.SURG_ITS ---
Subjective Subjective Patient seen and examined during AM rounds. He appears more alert today. We reviewed the procedure plan for today and he denies any questions. Objective Data Objective Data Vital Signs: Vital Signs Temp Pulse Resp BP Pulse Ox O2 Del Method O2 Flow Rate 97.9 F 106 H 23 H 110/62 96 Nasal Cannula 2 09/01/21 08:00 09/01/21 10:00 09/01/21 10:00 09/01/21 10:00 09/01/21 10:37 09/01/21 10:00 09/01/21 10:37 FiO2 35 09/01/21 06:00 Oxygen Flow Rate (L/min) 2 Oxygen Delivery Method Nasal Cannula Weight: 157 lb 13.616 oz Body Mass Index (BMI) 24.5 Intake & Output: Intake and Output for Last 24 Hours 08/30/21 08/31/21 09/01/21 23:59 23:59 23:59 Intake Total 1541.76 / 1543.16 1407.17 / 2066.34 859.17 / 859.17 Output Total 5000 / 5000 0 / 0 Balance -3458.24 / -3456.84 1407.17 / 2066.34 859.17 / 859.17 Lab / Micro Data Result Diagrams: 09/01/21 04:42 09/01/21 04:42 Labs: Laboratory Results - last 24 hr 09/01/21 04:42: WBC 18.7 H, RBC 3.79 L, Hgb 11.3 L, Hct 36.1 L, MCV 95.3 H, MCH 29.8, MCHC 31.3 L, RDW Std Deviation 65.0 H, RDW Coeff of Neetu 18.8 H, Plt Count 287, MPV 10.1, Immature Gran % (Auto) 1.500 H, Neut % (Auto) 87.2 H, Lymph % (Auto) 3.6 L, [place] % (Auto) 6.8, Eos % (Auto) 0.6, Baso % (Auto) 0.3, Absolute Neuts (auto) 16.3 H, Absolute Lymphs (auto) 0.68 L, Nucleated RBC % 0.1 09/01/21 04:42: Sodium 134 L, Potassium 3.3 L, Chloride 96 L, Carbon Dioxide 29.0, Anion Gap 9, BUN 46 H, Creatinine 2.62 H, Estim Creat Clear Calc 25.38, Est GFR (MDRD) Af Amer 31 L, Est GFR (MDRD) Non-Af 26 L, BUN/Creatinine Ratio 17.6, Glucose 122 H, Calcium 9.6, Total Bilirubin 0.60, AST 16, ALT 14 L, Alkaline Phosphatase 669 H, Total Protein 4.5 L, Albumin 1.9 L, Globulin 2.6, Albumin/Globulin Ratio 0.7 L Micro: Microbiology 08/30/21 07:00 Blood Culture (Wb) - Pic Bacteria Detection (PCR) - Final Staphylococcus aureus 08/30/21 07:00 Blood Culture (Wb) - Pic Blood Culture - Preliminary Staphylococcus aureus 08/30/21 07:25 Blood Culture (Wb) - Anticubital Right Blood Culture - Preliminary Staphylococcus aureus Radiography Diagnostic Testing: Radiology Impression Aorta Iliac Vascular Ultrasound 08/29/21 09:12 Interpretation Summary Abdominal aorta patent, normal caliber with normal velocities Bilateral iliac arteries patent, normal caliber with normal velocities Ordering Physician: Kanu Chan Performed By: Myke Monahan, T Chest/Abdomen/Pelvis CT 08/31/21 10:44 IMPRESSION: Dense consolidation in both lower lobes with patchy infiltrates in the lingular segment of the left upper lobe and right middle lobe. Diffuse ascites. Soft tissue density seen in the anterior peritoneal fat in the upper abdomen. Omental metastasis should be ruled out. Electronically Signed: Zackery Kent MD at 12:05 EDT , Rhythm Strip Rhythm Strip: Sinus Tach Rate: 104 Physical Exam Const no apparent distress Constitutional Narrative: Alert HEENT HEENT Narrative: Corpak to left nostril Chest Chest Narrative: Right side tunneled PICC line without surrounding erythema or drainage from about the tunneling site. A new chlorhexidine dressing has been placed. Resp normal respiratory effort GI GI Narrative: Protuberant abdomen with multiple healed incisions including a midline laparotomy. Assessment & Plan Assessment/Plan (1) MRSA bacteremia: (2) Central line infection: PLAN: Plan This is a 71-year-old male with a complex past medical history who is currently admitted to the ICU for issues originally believed to be related to hypervolemia, but now appears to be septic from a MRSA bacteremia. He has a tunneled PICC line in place from his prior hospital stay, but alternative venous access has been established and he has a working fistula for hemodialysis. The catheter has a unremarkable appearance on exam, but given its potential as a source for his bacteremia it requires discontinuation. We will plan to proceed to the operating room today for discontinuation of this line under MAC anesthetic. Charges/Coding Visit Charges Inpatient E&M: 51927 Subs Hosp L2
[2021-09-01] MEDS: Bupivacaine 0.25% 30 ML Vial (12:50)
--- NOTE | 2021-09-01 13:00 | PCM.OPRPT ---
Report of Operation Date of Procedure: 09/01/21 Pre-Operative Diagnosis: 1. MRSA bacteremia 2. Indwelling right internal jugular tunneled PICC line Post-Operative Diagnosis: Same Surgery/Procedure Performed:: Removal of tunneled PICC line under MAC anesthetic Description of Surgical Findings:: Dual-lumen PICC line in grafted to the chest wall via subcutaneous cuff Surgeon: Joon Jain Type of Anesthesia: MAC/Supplemental Anesthesiologist: Ravi Rondon Specimen's removed: NA Estimated Blood Loss (mL): 1 Description of Procedure: After identification in the postanesthesia care unit, patient was brought to the operating room where he was positioned supine on the operating room table. Sedation was begun by anesthesia and his right chest wall was prepped and draped. A formal timeout followed to confirm patient and procedure. Surgery was then begun with instillation of a local block of 0.25% bupivacaine (total volume 3 mL). I used a long right angle to bluntly open the patient's subcutaneous tunnel and dissect out the catheter cuff. Once the cuff was free of these attachments pressure was applied and the right lower neck and traction was applied to the catheter and it was fully removed from the neck. Catheter was passed off the field for disposal. Manual pressure was maintained for a period of 3 minutes after removal. The catheter tract was packed with a 10 cm length of quarter inch iodoform gauze. A 4 x 4 gauze folded in the force was placed atop this exit site and taped into position. Sedation was then lifted and patient was transferred back to his ICU bed for transport back to the ICU. Complications None
--- NOTE | 2021-09-01 14:42 | PN.RENAL_ITS ---
Subjective Subjective f/u esrd -feels ok -no acute events -going for removal of tunnel picc today Objective Data Objective Data Vital Signs: Vital Signs Temp Pulse Resp BP Pulse Ox O2 Del Method O2 Flow Rate 98.6 F 75 16 133/59 H 98 Nasal Cannula 4 09/01/21 13:44 09/01/21 13:44 09/01/21 13:44 09/01/21 13:44 09/01/21 13:44 09/01/21 13:44 09/01/21 13:44 FiO2 35 09/01/21 06:00 Oxygen Flow Rate (L/min) 4 Oxygen Delivery Method Nasal Cannula Weight: 71.6 kg Body Mass Index (BMI) 24.5 Intake & Output: Intake and Output for Last 24 Hours 08/30/21 08/31/21 09/01/21 23:59 23:59 23:59 Intake Total 1541.76 / 1543.16 1407.17 / 2066.34 1069.17 / 1069.17 Output Total 5000 / 5000 0 / 0 Balance -3458.24 / -3456.84 1407.17 / 2066.34 1069.17 / 1069.17 Lab / Micro Data Result Diagrams: 09/01/21 04:42 09/01/21 04:42 Labs: Laboratory Results - last 24 hr 09/01/21 04:42: WBC 18.7 H, RBC 3.79 L, Hgb 11.3 L, Hct 36.1 L, MCV 95.3 H, MCH 29.8, MCHC 31.3 L, RDW Std Deviation 65.0 H, RDW Coeff of Neetu 18.8 H, Plt Count 287, MPV 10.1, Immature Gran % (Auto) 1.500 H, Neut % (Auto) 87.2 H, Lymph % (Auto) 3.6 L, [place] % (Auto) 6.8, Eos % (Auto) 0.6, Baso % (Auto) 0.3, Absolute Neuts (auto) 16.3 H, Absolute Lymphs (auto) 0.68 L, Nucleated RBC % 0.1 09/01/21 04:42: Sodium 134 L, Potassium 3.3 L, Chloride 96 L, Carbon Dioxide 29.0, Anion Gap 9, BUN 46 H, Creatinine 2.62 H, Estim Creat Clear Calc 25.38, Est GFR (MDRD) Af Amer 31 L, Est GFR (MDRD) Non-Af 26 L, BUN/Creatinine Ratio 17.6, Glucose 122 H, Calcium 9.6, Total Bilirubin 0.60, AST 16, ALT 14 L, Alkaline Phosphatase 669 H, Total Protein 4.5 L, Albumin 1.9 L, Globulin 2.6, Albumin/Globulin Ratio 0.7 L Micro: Microbiology 09/01/21 07:37 Sputum, Induced/Lukens Gram Stain - Final 08/30/21 07:00 Blood Culture (Wb) - Pic Bacteria Detection (PCR) - Final Staphylococcus aureus 08/30/21 07:00 Blood Culture (Wb) - Pic Blood Culture - Preliminary Meth. resistant Staph. aureus 08/30/21 07:25 Blood Culture (Wb) - Anticubital Right Blood Culture - Preliminary Staphylococcus aureus Radiography Diagnostic Testing: Radiology Impression Aorta Iliac Vascular Ultrasound 08/29/21 09:12 Interpretation Summary Abdominal aorta patent, normal caliber with normal velocities Bilateral iliac arteries patent, normal caliber with normal velocities __ Ordering Physician: Kanu Chan Performed By: Myke Monahan RVT Rhythm Strip Rhythm Strip: Sinus Tach Rate: 104 Physical Exam Narrative awake, no acute distress s1s2 regular coarse b/s abdomen obese +LE edema Assessment & Plan Assessment/Plan (1) Chronic kidney failure: PLAN: -recent issues with completing HD; unclear if access issue or circuit hemodynamics -Patient had ultrafiltration yesterday of 3 L -Main issues remain volume overload -We will plan for hemodialysis today goals would be 2 to 3 L of ultrafiltration as tolerates -He will be getting blood transfusion with dialysis which will help -Continue with midodrine albumin 09/01 -plan for HD today -keep on MWF HD schedule -UF as bp tolerates -ongoing supportive care per ICU team Discussed with ICU attending Thank you, please call [phone] with any concerns
--- NOTE | 2021-09-01 16:21 | PCM.PN.HOSP ---
Subjective Subjective Patient was seen and examined today, I briefly talked with him and he stated his brother and his son help him make medical decisions. Patient went today for removal of his PICC line, I briefly talked with general surgery about his care. Patient's white count today was 18.7. Objective Data Objective Data Vital Signs: Vital Signs Temp Pulse Resp BP Pulse Ox O2 Del Method O2 Flow Rate 98.6 F 80 20 H 136/60 H 100 Nasal Cannula 2 09/01/21 13:44 09/01/21 15:00 09/01/21 15:00 09/01/21 15:00 09/01/21 15:00 09/01/21 15:00 09/01/21 15:00 FiO2 35 09/01/21 06:00 Oxygen Flow Rate (L/min) 2 Oxygen Delivery Method Nasal Cannula Weight: 71.6 kg Body Mass Index (BMI) 24.5 Intake & Output: Intake and Output for Last 24 Hours 08/30/21 08/31/21 09/01/21 23:59 23:59 23:59 Intake Total 1541.76 / 1543.16 1407.17 / 2066.34 1269.17 / 1269.17 Output Total 5000 / 5000 0 / 0 Balance -3458.24 / -3456.84 1407.17 / 2066.34 1269.17 / 1269.17 Lab / Micro Data Result Diagrams: 09/01/21 04:42 09/01/21 04:42 Labs: Laboratory Results - last 24 hr 09/01/21 04:42: WBC 18.7 H, RBC 3.79 L, Hgb 11.3 L, Hct 36.1 L, MCV 95.3 H, MCH 29.8, MCHC 31.3 L, RDW Std Deviation 65.0 H, RDW Coeff of Neetu 18.8 H, Plt Count 287, MPV 10.1, Immature Gran % (Auto) 1.500 H, Neut % (Auto) 87.2 H, Lymph % (Auto) 3.6 L, [place] % (Auto) 6.8, Eos % (Auto) 0.6, Baso % (Auto) 0.3, Absolute Neuts (auto) 16.3 H, Absolute Lymphs (auto) 0.68 L, Nucleated RBC % 0.1 09/01/21 04:42: Sodium 134 L, Potassium 3.3 L, Chloride 96 L, Carbon Dioxide 29.0, Anion Gap 9, BUN 46 H, Creatinine 2.62 H, Estim Creat Clear Calc 25.38, Est GFR (MDRD) Af Amer 31 L, Est GFR (MDRD) Non-Af 26 L, BUN/Creatinine Ratio 17.6, Glucose 122 H, Calcium 9.6, Total Bilirubin 0.60, AST 16, ALT 14 L, Alkaline Phosphatase 669 H, Total Protein 4.5 L, Albumin 1.9 L, Globulin 2.6, Albumin/Globulin Ratio 0.7 L Micro: Microbiology 09/01/21 07:37 Sputum, Induced/Lukens Gram Stain - Final 08/30/21 07:00 Blood Culture (Wb) - Pic Bacteria Detection (PCR) - Final Staphylococcus aureus 08/30/21 07:00 Blood Culture (Wb) - Pic Blood Culture - Preliminary Meth. resistant Staph. aureus 08/30/21 07:25 Blood Culture (Wb) - Anticubital Right Blood Culture - Preliminary Staphylococcus aureus Rhythm Strip Rhythm Strip: Sinus Tach Rate: 104 Physical Exam Narrative alert and no apparent distress Constitutional Narrative: Patient appears older than stated age, patient has a nasal feeding tube in place General Appearance: cooperative, well kempt and well developed Orientation / Consciousness: awake, oriented to person, oriented to place and oriented to time HEENT normocephalic, head/scalp atraumatic and moist oral mucous membranes Eyes PERRL, EOMs intact bilaterally and conjunctivae normal Neck supple, no JVD and thyroid normal General: trachea midline Resp normal respiratory effort, no retractions, no use of accessory muscles and clear to auscultation bilaterally Auscultation: Negative for rales, rhonchi or wheezes Cardio regular rate, regular rhythm, S1 normal heart sound, S2 normal heart sound, no murmurs, no rub and no gallops GI normal to inspection, nondistended, normoactive bowel sounds, soft to palpation, non-tender and non-distended Extremity no clubbing, cyanosis or edema Extremity Narrative: Very severe lower extremity edema is noted bilaterally Skin no rashes or lesions noted General Skin Exam: no breakdown Neuro CN's II-XII intact bilaterally, no focal motor deficits and no sensory deficits noted Sensorium / Orientation: awake and alert Speech: speech normal Psych affect normal Psych Narrative: Patient's affect is flat Const alert, oriented x3 and no apparent distress Constitutional Narrative: Patient appears older than stated age, patient has a nasal feeding tube in place General Appearance: cooperative, well kempt and well developed Orientation / Consciousness: awake, oriented to person, oriented to place and oriented to time HEENT normocephalic, head/scalp atraumatic and moist oral mucous membranes Eyes PERRL, EOMs intact bilaterally and conjunctivae normal Neck supple, no JVD and thyroid normal General: trachea midline Resp normal respiratory effort, no retractions, no use of accessory muscles and clear to auscultation bilaterally Auscultation: Negative for rales, rhonchi or wheezes Cardio regular rate, regular rhythm, S1 normal heart sound, S2 normal heart sound, no murmurs, no rub and no gallops GI normal to inspection, nondistended, normoactive bowel sounds, soft to palpation, non-tender and non-distended Extremity no clubbing, cyanosis or edema Extremity Narrative: Very severe lower extremity edema is noted bilaterally Skin no rashes or lesions noted General Skin Exam: no breakdown Neuro oriented x3, CN's II-XII intact bilaterally, no focal motor deficits and no sensory deficits noted Sensorium / Orientation: awake and alert Speech: speech normal Psych affect normal Psych Narrative: Patient's affect is flat Assessment & Plan Assessment/Plan (1) Central line infection: (2) History of liver transplant: PLAN: Plan 1. Acute on chronic hypoxic respiratory failure-patient is currently on nasal cannula oxygen, he is being followed by critical care, #2 septic shock from PICC line infection-MRSA, continue antibiotics per infectious diseases. #3 chronic anemia-secondary to end-stage renal disease and chronic liver disease, hemoglobin is 11.3 today #4 end-stage renal disease on hemodialysis-patient is being seen by nephrology #5 chronic debility secondary to prolonged recent hospitalization in [facility], patient will be seen by PT and OT, he will need to return to assisted facility at the conclusion of his hospitalization #6 paroxysmal atrial fibrillation-patient is on Eliquis and amiodarone #7 dysphagia-etiology unclear, patient is at high risk for aspiration, speech therapy will see the patient during his hospitalization #8 congestive heart failure with preserved ejection fraction-this was probably exacerbated by lack of dialysis recently at the [facility], patient is echocardiogram shows a normal EF with no significant valvular heart disease. Continue dialysis at this time. Overall prognosis for this patient is extremely guarded, patient has multiple severe medical problems. Charges/Coding Visit Charges Inpatient E&M: 56930 Subs Hosp L2
--- NOTE | 2021-09-01 19:06 | DIALYSIS ---
HD x 3.5 hours complete. Ran on 3k bath. UF of 2000ml. Used upper left arm access. [place] removed post tx and pressure applied x 10 minutes. Hemostasis achieved. Fresh gauze and tape applied. Report was given to GRICEL Kulkarni.
[2021-09-01] MEDS: NEPRO TUBE FEED 1,000 ML 50 ML GT (19:32)
[2021-09-01] MEDS: Vancomycin IV 500 MG/100 ML BAG 100 MG IV (20:43)
[2021-09-01] MEDS: MELATONIN 3 MG TABLET PO (21:48)
[2021-09-02] VITALS (28 sets, daily range): BP systolic 103–145; BP diastolic 59–95; PULSE 80–101; RESP 12–35; TEMP 36.2–36.7; O2SAT 88–99
--- NOTE | 2021-09-02 04:08 | EKG12_ITS ---
Test Reason : Blood Pressure : / mmHG Vent. Rate : 097 BPM Atrial Rate : 097 BPM P-R Int : 150 ms QRS Dur : 098 ms QT Int : 532 ms P-R-T Axes : 035 009 102 degrees QTc Int : 675 ms Normal sinus rhythm Nonspecific T wave abnormality Prolonged QT Abnormal ECG Confirmed by KARLO ALVAREZ, DONOVAN ([id number]), editor news RADHAMES MARIE ([id number]) on 09/06/2021 11:37:04 AM Referred By: Confirmed By:CARLOS ENRIQUE DIETRICH MD
--- NOTE | 2021-09-02 06:52 | PCM.PN.INT ---
Assessment & Plan Assessment/Plan (1) Respiratory failure: PLAN: Plan RECOMMENDATIONS: 1. Continue antimicrobials per ID recommendations. 2. Ongoing hemodialysis support per nephrology recommendations. 3. Continue to hold Eliquis for now. 4. Continue PPI therapy twice daily. 5. Continue to monitor H&H daily. Transfuse if hemoglobin drops below 7 g/dL. 6. Nutritional support via NG tube. Speech therapy is following. 7. Aggressive physical therapy. 8. The patient is medically stable for transfer out of the intensive care unit. IMPRESSIONS: 1. Acute on chronic hypoxemic respiratory failure Likely multifactorial in etiology. Although hypervolemia in the setting of missed dialysis sessions is likely the culprit, the patient just had an extensive hospitalization at [facility], during which time, he was identified as being high risk for aspiration. Therefore, an underlying pulmonary infectious process is also a distinct possibility. His oxygenation status is stable. However, the patient has multifocal consolidations on imaging along with a weak cough. Continue aggressive bronchopulmonary hygiene. Antimicrobials will be continued per ID recommendations. Nutritional support via feeding tube will be continued. Continue to wean supplemental oxygen for saturations greater than 90%. 2. Septic shock Improved. The patient appears to have staph bacteremia. Although the definitive source is unclear, underlying pneumonia is a possibility. In light of the patient's recent hospitalization at [facility] with multiple sites of infection, infectious diseases is following to assist with antimicrobial management. For now, the patient will remain on empiric broad-spectrum antimicrobials. Continue scheduled midodrine. Tunneled PICC line was removed on September 01. 3. Anemia The patient has chronic anemia, which worsened at the time of his admission. The patient did receive packed red blood cells with subsequent stabilization in his blood counts. Continue to check H&H daily and transfuse if hemoglobin drops below 7 g/dL. Continue PPI twice daily as ordered. 4. End-stage renal disease on hemodialysis Nephrology is currently following to assist with hemodialysis needs. The patient routinely receives dialysis on a Monday, Monday, Monday schedule. 5. 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 The patient was apparently discharged from [facility] on lactulose, which may have led to excessive GI losses. Tacrolimus levels are pending. 6. Recent prolonged hospitalization leading to debility/high aspiration risk status post Corpak placement The patient recently spent over 2 months at [facility] with a prolonged, complicated hospitalization. Ultimately, the patient was considered high risk for aspiration and a Corpak was placed. Speech therapy is currently following. Nutritional support via NG tube will be continued. 7. History of atrial fibrillation/diabetes mellitus Complicates care, management, recovery and prognosis. Continue to hold Eliquis for now. This note was generated with [employer] dictation software. It may contain incorrect words, spelling, and punctuation that were not noted in checking the note before signing. Subjective Subjective The patient was seen and examined at the bedside this morning. Events from the last 24 hours have been reviewed. The patient is currently afebrile, hemodynamically stable and maintaining appropriate oxygen saturations on 2 L/min via nasal cannula. The patient is documented to be overall net +1.3 L for the hospitalization. The patient tolerated dialysis for 3.5 hours yesterday with 2 L of fluid removed. His tunneled PICC line was successfully removed yesterday. Objective Data Objective Data The patient's most recent lab work, culture data and imaging studies have all been personally reviewed. Surface echocardiogram demonstrated moderate concentric LVH with an ejection fraction of 60%. Pulmonary artery systolic pressure was estimated to be 38 mmHg. Blood cultures dated August 30 were positive for MRSA. Vital Signs: Vital Signs Temp Pulse Resp BP Pulse Ox O2 Del Method O2 Flow Rate 98.1 F 99 34 H 130/67 H 97 Nasal Cannula 2 09/02/21 00:00 09/02/21 05:00 09/02/21 01:10 09/02/21 05:00 09/02/21 05:00 09/02/21 05:00 09/02/21 05:00 FiO2 35 09/02/21 01:10 Oxygen Flow Rate (L/min) 2 Oxygen Delivery Method Nasal Cannula Weight: 157 lb 13.616 oz Body Mass Index (BMI) 24.5 Intake & Output: Intake and Output for Last 24 Hours 08/31/21 09/01/21 09/02/21 23:59 23:59 23:59 Intake Total 1407.17 / 2066.34 1569.17 / 2463.17 1224 / 1224 Output Total 0 / 0 Balance 1407.17 / 2066.34 1569.17 / 2463.17 1224 / 1224 Lab / Micro Data Attestation: I reviewed the patient's lab results. Result Diagrams: 09/02/21 07:15 09/02/21 07:15 Labs: Laboratory Results - last 24 hr 09/01/21 04:42: WBC 18.7 H, RBC 3.79 L, Hgb 11.3 L, Hct 36.1 L, MCV 95.3 H, MCH 29.8, MCHC 31.3 L, RDW Std Deviation 65.0 H, RDW Coeff of Neetu 18.8 H, Plt Count 287, MPV 10.1, Immature Gran % (Auto) 1.500 H, Neut % (Auto) 87.2 H, Lymph % (Auto) 3.6 L, [place] % (Auto) 6.8, Eos % (Auto) 0.6, Baso % (Auto) 0.3, Absolute Neuts (auto) 16.3 H, Absolute Lymphs (auto) 0.68 L, Nucleated RBC % 0.1 09/01/21 04:42: Sodium 134 L, Potassium 3.3 L, Chloride 96 L, Carbon Dioxide 29.0, Anion Gap 9, BUN 46 H, Creatinine 2.62 H, Estim Creat Clear Calc 25.38, Est GFR (MDRD) Af Amer 31 L, Est GFR (MDRD) Non-Af 26 L, BUN/Creatinine Ratio 17.6, Glucose 122 H, Calcium 9.6, Total Bilirubin 0.60, AST 16, ALT 14 L, Alkaline Phosphatase 669 H, Total Protein 4.5 L, Albumin 1.9 L, Globulin 2.6, Albumin/Globulin Ratio 0.7 L Micro: Microbiology 09/01/21 07:37 Sputum, Induced/Lukens Gram Stain - Final 08/30/21 07:00 Blood Culture (Wb) - Pic Bacteria Detection (PCR) - Final Staphylococcus aureus 08/30/21 07:00 Blood Culture (Wb) - Pic Blood Culture - Preliminary Meth. resistant Staph. aureus 08/30/21 07:25 Blood Culture (Wb) - Anticubital Right Blood Culture - Preliminary Staphylococcus aureus ABG Data ABG results: ABG 08/29/21 08:04 Specimen Type ART Sample Site R Radial pH 7.32 L Bicarbonate Actual 27.3 H Total CO2 29 Base Excess 1 O2 Saturation 87 L O2 % 50 ABG pCO2 52.8 H ABG pO2 58 L Rodrigo Test Positive O2 Delivery Device BiPAP POC PEEP 7 Radiography Diagnostic Testing: Radiology Impression Aorta Iliac Vascular Ultrasound 08/29/21 09:12 Interpretation Summary Abdominal aorta patent, normal caliber with normal velocities Bilateral iliac arteries patent, normal caliber with normal velocities Ordering Physician: Kanu Chan Performed By: Myke Monahan, RVT Chest/Abdomen/Pelvis CT 08/31/21 10:44 IMPRESSION: Dense consolidation in both lower lobes with patchy infiltrates in the lingular segment of the left upper lobe and right middle lobe. Diffuse ascites. Soft tissue density seen in the anterior peritoneal fat in the upper abdomen. Omental metastasis should be ruled out. Electronically Signed: Zackery Kent MD at 12:05 EDT , Rhythm Strip Rhythm Strip: Sinus Tach Rate: 104 Physical Exam Const alert Constitutional Narrative: Chronically ill in appearance. General Appearance: cooperative HEENT normocephalic and head/scalp atraumatic HEENT Narrative: Corpak currently in place. Teeth and Gingiva: poor dentition Eyes PERRL and EOMs intact bilaterally Neck supple General: trachea midline Chest inspection of chest normal Resp Resp Narrative: + Weak cough Effort and Inspection: tachypneic Auscultation: rhonchi Cardio regular rate and regular rhythm GI soft to palpation and non-tender Inspection: abdominal distention Extremity General Extremity: edema; Negative for clubbing Skin no rashes or lesions noted Neuro CN's II-XII intact bilaterally and no focal motor deficits Psych Mood & Affect: flat affect Charges/Coding Visit Charges Inpatient E&M: 52170 Subs Hosp L2
[2021-09-02 07:26] LABS: Absolute Lymphocyte Count 0.73 X10^3/uL (0.83-4.51); Absolute Neutrophil Count 21.7 X10^3/uL (2.0-7.7); Basophil# 0.09 X10^3/uL; Basophil% 0.4 % (0-1); Eosinophil# 0.11 X10^3/uL; Eosinophils% 0.4 % (0-5); Hematocrit 36.4 % (40-54); Hemoglobin 11.8 g/dL (13.0-16.5); Lymphocyte # 0.73 X10^3/ul (0.83-4.51); Lymphocyte % 2.9 % (19-41); Mean Corp Hgb Conc 32.4 g/dL (32-36); Mean Corpuscular Hgb 30.1 pg (27.0-32.0); Mean Corpuscular Volume 92.9 fL (80-94); Mean Platelet Vol. 9.8 fl (6.2-12.0); Monocyte# 1.78 X10^3/uL; Monocyte% 7.1 % (0-10); NRBC Flagged by Analyzer 0.1 % (0-5); Neutrophil % 86.4 % (47-70); POSITIVE DIFFERENTIAL YES; Platelet Count 270 K/mm3 (150-450); RBC Distribution Width CV 18.6 % (11.6-14.6); RBC Distribution Width SD 62.8 fl (35.1-43.9); Red Blood Count 3.92 M/mm3 (4.6-6.2); White Blood Count 25.1 K/mm3 (4.4-11.0)
[2021-09-02 07:28] LABS: Differential Indicated SCAN CRITERIA MET
[2021-09-02 08:20] LABS: Anion Gap 8 (5-15); BUN 30 mg/dL (7-18); BUN/Creat Ratio 15.2 RATIO (10-20); Calcium,Total 9.4 mg/dL (8.5-10.1); Chloride 100 mmol/L (98-107); Creatinine, Serum 1.97 mg/dL (0.70-1.30); EST Glomerular Filtration Rate 36 mL/min (>60); Est Glom Filt Rate - Afr Amer 43 mL/min (>60); Estimated Creatinine Clearance 33.76 ml/min; Glucose 209 mg/dL (74-106); Potassium 3.3 mmol/L (3.5-5.1); Sodium Level 137 mmol/L (136-145)
[2021-09-02] MEDS: Multivitamins,Ther W-Minerals Tablet 1 TABLET GT (09:30)
[2021-09-02] MEDS: Midodrine HCl 5 MG Tablet 10 MG GT (09:30)
[2021-09-02] MEDS: Ursodiol 250 MG Tablet GT ×2 (09:32→15:15)
[2021-09-02] MEDS: Allopurinol 100 MG Tablet GT (09:32)
[2021-09-02] MEDS: ARIPiprazole 2 MG Tablet GT (09:32)
[2021-09-02] MEDS: ENTECAVIR 0.5 MG TABLET PO (09:33)
[2021-09-02] MEDS: Amiodarone 200 MG Tablet GT (09:34)
[2021-09-02] MEDS: Timolol 0.5% 5ML OPTH.BTL 1 DRP EACH EYE (09:34)
[2021-09-02] MEDS: Tacrolimus Anhydrous 1 MG Capsule GT ×2 (09:34→21:52)
[2021-09-02] MEDS: Cholecalciferol (VIT D3) 25 MCG TABLET (1,000 UNITS) GT (09:34)
[2021-09-02] MEDS: Nystatin Powder 15gm Bottle 1 APPLIC TOPICAL ×2 (09:35→21:51)
[2021-09-02] MEDS: oxyCODONE 5 MG Tablet GT ×2 (09:48→17:38)
--- NOTE | 2021-09-02 10:27 | PCM.PN.ID ---
Physical Exam Narrative Not feeling well. Still cough and dyspnea. No fever. Const alert General Appearance: cooperative Resp Auscultation: rhonchi Cardio regular rate and regular rhythm GI soft to palpation, non-tender and non-distended Skin Skin Narrative: shallow decub wound ID ID: Route of nutrition/ use of supplements: [] Nutritional Intake: [] IV Site: [] Betancourt Catheter: [] Assessment & Plan Assessment/Plan (1) History of liver transplant: (2) MRSA bacteremia: (3) Dependence on renal dialysis: (4) Septic shock: PLAN: septic shock with MRSA bacteremia and multifocal pneumonia. H/o liver transplant and ESRD. Recent long admit at [facility] for covid, complicated by recurrent pneumonia, peritonitis, and RP abscess. Splinter hemorrhage on R 2nd finger. TTE here showed no veg. Tunneled R chest line removed 09/01. Dialysis via fistula. Cont vanc/dalia for now while sputum cx pending. Will check repeat bcx. Recommend HARJIT if respiratory status improves. Will follow, thank you, d/w Dr. Gibson
[2021-09-02] MEDS: Potassium Chloride 10mEq/100mL 10 MEQ/100 ML IV.SOLN. 100 MEQ IV BOLUS ×4 (10:30→14:16)
--- NOTE | 2021-09-02 11:25 | CASEMGMT ---
Discharge Pretzel Twister Larisa adair recreational assistant send updates to Rosalie at [facility]. Plan: [facility] Larisa Olivera Discharge Pretzel Twister
--- NOTE | 2021-09-02 11:36 | PCM.PN.REN ---
Subjective Subjective f/u esrd -no on NIV -more sob Objective Data Objective Data Vital Signs: Vital Signs Temp Pulse Resp BP Pulse Ox O2 Del Method O2 Flow Rate 97.4 F L 93 25 H 145/66 H 93 Nasal Cannula 4 09/02/21 10:00 09/02/21 10:34 09/02/21 10:34 09/02/21 10:00 09/02/21 10:34 09/02/21 10:00 09/02/21 10:00 FiO2 40 09/02/21 10:34 Oxygen Flow Rate (L/min) 4 Oxygen Delivery Method Nasal Cannula Weight: 70.2 kg Body Mass Index (BMI) 24.5 Intake & Output: Intake and Output for Last 24 Hours 08/31/21 09/01/21 09/02/21 23:59 23:59 23:59 Intake Total 1407.17 / 2066.34 1569.17 / 2463.17 2674.33 / 2674.33 Output Total 0 / 0 Balance 1407.17 / 2066.34 1569.17 / 2463.17 2674.33 / 2674.33 Lab / Micro Data Result Diagrams: 09/02/21 07:15 09/02/21 07:15 Labs: Laboratory Results - last 24 hr 09/02/21 07:15: WBC 25.1 H, RBC 3.92 L, Hgb 11.8 L, Hct 36.4 L, MCV 92.9, MCH 30.1, MCHC 32.4, RDW Std Deviation 62.8 H, RDW Coeff of Neetu 18.6 H, Plt Count 270, MPV 9.8, Immature Gran % (Auto) 2.800 H, Neut % (Auto) 86.4 H, Lymph % (Auto) 2.9 L, [place] % (Auto) 7.1, Eos % (Auto) 0.4, Baso % (Auto) 0.4, Absolute Neuts (auto) 21.7 H, Absolute Lymphs (auto) 0.73 L, Nucleated RBC % 0.1, Differential Comment COMMENT, Diff Path Review June09/02/21 07:15: Sodium 137, Potassium 3.3 L, Chloride 100, Carbon Dioxide 29.0, Anion Gap 8, BUN 30 H, Creatinine 1.97 H, Estim Creat Clear Calc 33.76, Est GFR (MDRD) Af Amer 43 L, Est GFR (MDRD) Non-Af 36 L, BUN/Creatinine Ratio 15.2, Glucose 209 H, Calcium 9.4 Micro: Microbiology 09/01/21 07:37 Sputum, Induced/Lukens Gram Stain - Final 09/01/21 07:37 Sputum, Induced/Lukens Respiratory Culture - Preliminary Staphylococcus aureus 09/02/21 10:10 Stool Stool Occult Blood (REN) - Final 08/31/21 12:30 Blood Culture (Wb) - Anticubital Right Blood Culture - Preliminary No growth in 48 hours. 08/30/21 07:00 Blood Culture (Wb) - Pic Bacteria Detection (PCR) - Final Staphylococcus aureus 08/30/21 07:00 Blood Culture (Wb) - Pic Blood Culture - Preliminary Meth. resistant Staph. aureus 08/30/21 07:25 Blood Culture (Wb) - Anticubital Right Blood Culture - Preliminary Staphylococcus aureus Rhythm Strip Rhythm Strip: Sinus Tach Rate: 104 Physical Exam Narrative awake, NG present, NIV in place coarse b/s s1s2 regular abdomen distended +edema Assessment & Plan Assessment/Plan (1) Chronic kidney failure: PLAN: -recent issues with completing HD; unclear if access issue or circuit hemodynamics -Patient had ultrafiltration yesterday of 3 L -Main issues remain volume overload 09/02 -had HD yesterday, however worsening respiratory distress -bp ok -plan for UF treatment today Discussed with primary team Thank you, please call [phone] with any concerns
--- NOTE | 2021-09-02 11:49 | WOUNDNOTE ---
wound photo: sacrum/lower back
[2021-09-02 13:26] LABS: Pathologist Review Reviewed
--- NOTE | 2021-09-02 17:10 | PCM.PN.HOSP ---
Subjective Subjective Patient was seen and examined today, his white blood cell count was elevated at 25.1 today, he required increased supplemental oxygen this morning, I talked at length with his son who requested that the patient be transferred to [facility] if possible for further care due to his hepatic transplant doctors being in practice there. He also confirmed that the patient is a full code-he states that his father has voiced their request to be resuscitated if he was expected to make a recovery from an illness. He is aware that his father is very sick at this time, he states his father has been in the hospital since March all but 3 weeks since then. Patient had respiratory issues in March of this year and was hospitalized at the clinic, he had a prolonged hospitalization and was released in May and went to a [facility] briefly for 2 weeks and then had to be hospitalized again in June and was released mid August this year. Patient had only been at [facility] for approximately a week before he was admitted here. Objective Data Objective Data Vital Signs: Vital Signs Temp Pulse Resp BP Pulse Ox O2 Del Method O2 Flow Rate 97.8 F 85 26 H 140/84 H 97 Bi-pap 4 09/02/21 14:00 09/02/21 15:58 09/02/21 15:58 09/02/21 14:00 09/02/21 15:58 09/02/21 15:32 09/02/21 10:00 FiO2 35 09/02/21 15:58 Oxygen Flow Rate (L/min) 4 Oxygen Delivery Method Bi-pap Weight: 70.2 kg Body Mass Index (BMI) 24.5 Intake & Output: Intake and Output for Last 24 Hours 08/31/21 09/01/21 09/02/21 23:59 23:59 23:59 Intake Total 1407.17 / 2066.34 1569.17 / 2463.17 3524.33 / 3524.33 Output Total 0 / 0 Balance 1407.17 / 2066.34 1569.17 / 2463.17 3524.33 / 3524.33 Lab / Micro Data Result Diagrams: 09/02/21 07:15 09/02/21 07:15 Labs: Laboratory Results - last 24 hr 08/30/21 06:55: Crossmatch See Detail 09/02/21 07:15: WBC 25.1 H, RBC 3.92 L, Hgb 11.8 L, Hct 36.4 L, MCV 92.9, MCH 30.1, MCHC 32.4, RDW Std Deviation 62.8 H, RDW Coeff of Neetu 18.6 H, Plt Count 270, MPV 9.8, Immature Gran % (Auto) 2.800 H, Neut % (Auto) 86.4 H, Lymph % (Auto) 2.9 L, [place] % (Auto) 7.1, Eos % (Auto) 0.4, Baso % (Auto) 0.4, Absolute Neuts (auto) 21.7 H, Absolute Lymphs (auto) 0.73 L, Nucleated RBC % 0.1, Differential Comment COMMENT, Diff Path Review Reviewed 09/02/21 07:15: Sodium 137, Potassium 3.3 L, Chloride 100, Carbon Dioxide 29.0, Anion Gap 8, BUN 30 H, Creatinine 1.97 H, Estim Creat Clear Calc 33.76, Est GFR (MDRD) Af Amer 43 L, Est GFR (MDRD) Non-Af 36 L, BUN/Creatinine Ratio 15.2, Glucose 209 H, Calcium 9.4 Micro: Microbiology 09/01/21 07:37 Sputum, Induced/Lukens Gram Stain - Final 09/01/21 07:37 Sputum, Induced/Lukens Respiratory Culture - Preliminary Staphylococcus aureus 09/02/21 10:10 Stool Stool Occult Blood (REN) - Final 08/31/21 12:30 Blood Culture (Wb) - Anticubital Right Blood Culture - Preliminary No growth in 48 hours. 08/30/21 07:00 Blood Culture (Wb) - Pic Bacteria Detection (PCR) - Final Staphylococcus aureus 08/30/21 07:00 Blood Culture (Wb) - Pic Blood Culture - Preliminary Meth. resistant Staph. aureus 08/30/21 07:25 Blood Culture (Wb) - Anticubital Right Blood Culture - Preliminary Staphylococcus aureus Rhythm Strip Rhythm Strip: Sinus Tach Rate: 104 Physical Exam Narrative alert and no apparent distress Constitutional Narrative: Patient appears older than stated age, patient has a nasal feeding tube in place General Appearance: cooperative, well kempt and well developed Orientation / Consciousness: awake, oriented to person, oriented to place and oriented to time HEENT normocephalic, head/scalp atraumatic and moist oral mucous membranes Eyes PERRL, EOMs intact bilaterally and conjunctivae normal Neck supple, no JVD and thyroid normal General: trachea midline Resp normal respiratory effort, no retractions, no use of accessory muscles and clear to auscultation bilaterally Auscultation: Negative for rales, rhonchi or wheezes Cardio regular rate, regular rhythm, S1 normal heart sound, S2 normal heart sound, no murmurs, no rub and no gallops GI normal to inspection, nondistended, normoactive bowel sounds, soft to palpation, non-tender and non-distended Extremity no clubbing, cyanosis or edema Extremity Narrative: Very severe lower extremity edema is noted bilaterally Skin no rashes or lesions noted General Skin Exam: no breakdown Neuro CN's II-XII intact bilaterally, no focal motor deficits and no sensory deficits noted Sensorium / Orientation: awake and alert Speech: speech normal Psych affect normal Psych Narrative: Patient's affect is flat Const alert, oriented x3 and no apparent distress Constitutional Narrative: Patient appears older than stated age, patient has a nasal feeding tube in place General Appearance: cooperative, well kempt and well developed Orientation / Consciousness: awake, oriented to person, oriented to place and oriented to time HEENT normocephalic, head/scalp atraumatic and moist oral mucous membranes Eyes PERRL, EOMs intact bilaterally and conjunctivae normal Neck supple, no JVD and thyroid normal General: trachea midline Resp normal respiratory effort, no retractions, no use of accessory muscles and clear to auscultation bilaterally Auscultation: Negative for rales, rhonchi or wheezes Cardio regular rate, regular rhythm, S1 normal heart sound, S2 normal heart sound, no murmurs, no rub and no gallops GI normal to inspection, nondistended, normoactive bowel sounds, soft to palpation, non-tender and non-distended Extremity no clubbing, cyanosis or edema Extremity Narrative: Very severe lower extremity edema is noted bilaterally Skin no rashes or lesions noted General Skin Exam: no breakdown Neuro oriented x3, CN's II-XII intact bilaterally, no focal motor deficits and no sensory deficits noted Sensorium / Orientation: awake and alert Speech: speech normal Psych affect normal Psych Narrative: Patient's affect is flat Assessment & Plan Assessment/Plan (1) Septic shock: (2) Central line infection: (3) History of liver transplant: PLAN: Plan 1. Acute on chronic hypoxic respiratory failure-patient is currently on BiPAP at 30%, again the patient is a full code at this time including intubation. Patient was dialyzed again today in an attempt to remove fluid to help his breathing status. #2 septic shock from PICC line infection-MRSA, continue antibiotics per infectious diseases. #3 chronic anemia-secondary to end-stage renal disease and chronic liver disease, hemoglobin is 11.8 today #4 end-stage renal disease on hemodialysis-patient is being seen by nephrology #5 chronic debility secondary to prolonged recent hospitalization in [facility], patient will be seen by PT and OT, he will [facility] at the conclusion of his hospitalization #6 paroxysmal atrial fibrillation-patient is on Eliquis and amiodarone #7 dysphagia-etiology unclear, patient is at high risk for aspiration, speech therapy will see the patient during his hospitalization, continue n.p.o. status and give tube feedings #8 congestive heart failure with preserved ejection fraction-this was probably exacerbated by lack of dialysis recently at the [facility], patient is echocardiogram shows a normal EF with no significant valvular heart disease. Continue dialysis at this time. Overall prognosis for this patient is extremely guarded, patient has multiple severe medical problems. I put a call in to [facility] today, patient is now on a waiting list to be admitted to [facility], they advised me that this could take up to a week. Charges/Coding Visit Charges Inpatient E&M: 00940 Subs Hosp L2
[2021-09-02] MEDS: NEPRO TUBE FEED 1,000 ML 50 ML GT (18:07)
--- NOTE | 2021-09-02 19:12 | DIALYSIS ---
2 hour iuf treatment complete. net uf 2000 ml's removed. tolerated well. needles pulled with hemostasis under 10 minutes. see scanned records.
[2021-09-02] MEDS: 0.9% Saline Lock 10 ML Syringe IV (19:16)
[2021-09-02] MEDS: MELATONIN 3 MG TABLET GT (21:51)
--- NOTE | 2021-09-02 23:57 | PCM.HOSP.N ---
Hospitalist Note Called by ICU staff and noted that patient accepted at [facility] with bed obtained. Report being given and transport being arranged.
[2021-09-03] VITALS: BP 113/64; PULSE 89; PULSE 92; RESP 24; TEMP 36.7; O2SAT 98
[2021-09-03 01:18] VITALS: PULSE 89; RESP 12; RESP 28; O2SAT 97
[2021-09-03 02:00] VITALS: BP 122/53; PULSE 85; RESP 21; TEMP 36.4; O2SAT 99
[2021-09-03] MEDS: oxyCODONE 5 MG Tablet GT (03:52)
[2021-09-03 04:00] VITALS: BP 114/71; PULSE 121; RESP 24; TEMP 36.6; O2SAT 98
[2021-09-03 04:05] LABS: Absolute Lymphocyte Count 0.78 X10^3/uL (0.83-4.51); Basophil% 0.4 % (0-1); Eosinophil# 0.14 X10^3/uL; Eosinophils% 0.5 % (0-5); Hematocrit 37.4 % (40-54); Lymphocyte # 0.78 X10^3/ul (0.83-4.51); Lymphocyte % 2.9 % (19-41); Mean Corp Hgb Conc 32.1 g/dL (32-36); Mean Corpuscular Hgb 29.9 pg (27.0-32.0); Mean Platelet Vol. 9.8 fl (6.2-12.0); Monocyte% 7.1 % (0-10); NRBC Flagged by Analyzer 0.1 % (0-5); Neutrophil # 22.98 X10^3/uL (2.7-7.7); Neutrophil % 85.8 % (47-70); POSITIVE DIFFERENTIAL YES; Platelet Count 198 K/mm3 (150-450); RBC Distribution Width CV 18.3 % (11.6-14.6); RBC Distribution Width SD 61.5 fl (35.1-43.9); Red Blood Count 4.02 M/mm3 (4.6-6.2); White Blood Count 26.8 K/mm3 (4.4-11.0)
[2021-09-03 04:07] LABS: Differential Indicated SCAN CRITERIA MET
[2021-09-03 04:18] LABS: Anisocytosis 1+
[2021-09-03 04:19] LABS: Anion Gap 6 (5-15); Atypical Lymphocyte 1+ %; BUN 37 mg/dL (7-18); BUN/Creat Ratio 16.7 RATIO (10-20); Calcium,Total 10.4 mg/dL (8.5-10.1); Chloride 99 mmol/L (98-107); Creatinine, Serum 2.22 mg/dL (0.70-1.30); EST Glomerular Filtration Rate 31 mL/min (>60); Est Glom Filt Rate - Afr Amer 38 mL/min (>60); Estimated Creatinine Clearance 29.95 ml/min; Glucose 214 mg/dL (74-106); Potassium 3.5 mmol/L (3.5-5.1); Sodium Level 135 mmol/L (136-145)
[2021-09-03 06:00] VITALS: BP 104/53; PULSE 90; RESP 18; TEMP 36.8; O2SAT 100
--- NOTE | 2021-09-03 06:25 | PN.CC_ITS ---
Assessment & Plan Assessment/Plan (1) Respiratory failure: PLAN: Plan RECOMMENDATIONS: 1. Continue antimicrobials per ID recommendations. 2. Ongoing hemodialysis support per nephrology recommendations. 3. Continue to hold Eliquis for now. 4. Continue PPI therapy twice daily. 5. Continue to monitor H&H daily. Transfuse if hemoglobin drops below 7 g/dL. 6. Nutritional support via NG tube. Speech therapy is following. 7. Aggressive physical therapy. IMPRESSIONS: 1. Acute on chronic hypoxemic respiratory failure Likely multifactorial in etiology. Although hypervolemia in the setting of missed dialysis sessions is likely the culprit, the patient just had an extensive hospitalization at [facility], during which time, he was identified as being high risk for aspiration. Therefore, an underlying pulmonary infectious process is also a distinct possibility. His oxygenation status is stable. However, the patient has multifocal consolidations on imaging along with a weak cough. Continue aggressive bronchopulmonary hygiene. Antimicrobials will be continued per ID recommendations. Nutritional support via feeding tube will be continued. Continue to wean supplemental oxygen for saturations greater than 90%. 2. Septic shock Improved. The patient appears to have staph bacteremia. Although the definitive source is unclear, underlying pneumonia seems most likely. In light of the patient's recent hospitalization at [facility] with multiple sites of infection, infectious diseases is following to assist with antimicrobial management. For now, the patient will remain on empiric broad-spectrum antimicrobials. Continue scheduled midodrine. Tunneled PICC line was removed on September 01. 3. Anemia The patient has chronic anemia, which worsened at the time of his admission. The patient did receive packed red blood cells with subsequent stabilization in his blood counts. Continue to check H&H daily and transfuse if hemoglobin drops below 7 g/dL. Continue PPI twice daily as ordered. 4. End-stage renal disease on hemodialysis Nephrology is currently following to assist with hemodialysis needs. The patient routinely receives dialysis on a Monday, Monday, Monday schedule. 5. 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 The patient was apparently discharged from [facility] on lactulose, which may have led to excessive GI losses. Tacrolimus levels are pending. 6. Recent prolonged hospitalization leading to debility/high aspiration risk status post Corpak placement The patient recently spent over 2 months at [facility] with a prolonged, complicated hospitalization. Ultimately, the patient was considered high risk for aspiration and a Corpak was placed. Speech therapy is currently following. Nutritional support via NG tube will be continued. 7. History of atrial fibrillation/diabetes mellitus Complicates care, management, recovery and prognosis. Continue to hold Eliquis for now. This note was generated with [employer] dictation software. It may contain incorrect words, spelling, and punctuation that were not noted in checking the note before signing. Subjective Subjective The patient was seen and examined at the bedside this morning. Events from the last 24 hours have been reviewed. The patient is currently afebrile, hemodynamically stable and maintaining appropriate oxygen saturations on 4 L/min via nasal cannula. No overnight issues were identified by the nursing staff. The patient tolerated BiPAP overnight for approximately 3 hours. Dialysis was completed yesterday with 2 L of fluid removed. Labs remained stable this morning. There are tentative plans for the patient to be transferred to [facility] this morning. Objective Data Objective Data The patient's most recent lab work, culture data and imaging studies have all been personally reviewed. Surface echocardiogram demonstrated moderate concentric LVH with an ejection fraction of 60%. Pulmonary artery systolic pressure was estimated to be 38 mmHg. Blood cultures dated August 30 were positive for MRSA. Sputum culture dated September 01 was positive for staph aureus. Vital Signs: Vital Signs Temp Pulse Resp BP Pulse Ox O2 Del Method O2 Flow Rate 98.2 F 90 18 104/53 L 100 Nasal Cannula 4 09/03/21 06:00 09/03/21 06:00 09/03/21 06:00 09/03/21 06:00 09/03/21 06:00 09/03/21 06:00 09/03/21 06:00 FiO2 30 09/03/21 03:00 Oxygen Flow Rate (L/min) 4 Oxygen Delivery Method Nasal Cannula Weight: 154 lb 12.232 oz Body Mass Index (BMI) 24.5 Intake & Output: Intake and Output for Last 24 Hours 09/01/21 09/02/21 09/03/21 23:59 23:59 23:59 Intake Total 1569.17 / 2463.17 4121.00 / 4171.00 150 / 150 Output Total 0 / 0 1999 / 1999 Balance 1569.17 / 2463.17 2121.00 / 2171.00 150 / 150 Lab / Micro Data Attestation: I reviewed the patient's lab results. Result Diagrams: 09/03/21 03:45 09/03/21 03:45 Labs: Laboratory Results - last 24 hr 08/30/21 06:55: Crossmatch See Detail 09/02/21 07:15: WBC 25.1 H, RBC 3.92 L, Hgb 11.8 L, Hct 36.4 L, MCV 92.9, MCH 30.1, MCHC 32.4, RDW Std Deviation 62.8 H, RDW Coeff of Neetu 18.6 H, Plt Count 270, MPV 9.8, Immature Gran % (Auto) 2.800 H, Neut % (Auto) 86.4 H, Lymph % (Auto) 2.9 L, [place] % (Auto) 7.1, Eos % (Auto) 0.4, Baso % (Auto) 0.4, Absolute Neuts (auto) 21.7 H, Absolute Lymphs (auto) 0.73 L, Nucleated RBC % 0.1, Differential Comment COMMENT, Diff Path Review Reviewed 09/02/21 07:15: Sodium 137, Potassium 3.3 L, Chloride 100, Carbon Dioxide 29.0, Anion Gap 8, BUN 30 H, Creatinine 1.97 H, Estim Creat Clear Calc 33.76, Est GFR (MDRD) Af Amer 43 L, Est GFR (MDRD) Non-Af 36 L, BUN/Creatinine Ratio 15.2, Glucose 209 H, Calcium 9.4 09/03/21 03:45: Random Vancomycin 19.0 H 09/03/21 03:45: WBC 26.8 H, RBC 4.02 L, Hgb 12.0 L, Hct 37.4 L, MCV 93.0, MCH 29.9, MCHC 32.1, RDW Std Deviation 61.5 H, RDW Coeff of Neetu 18.3 H, Plt Count 198, MPV 9.8, Immature Gran % (Auto) 3.300 H, Neut % (Auto) 85.8 H, Lymph % (Auto) 2.9 L, [place] % (Auto) 7.1, Eos % (Auto) 0.5, Baso % (Auto) 0.4, Absolute Neuts (auto) 23.0 H, Absolute Lymphs (auto) 0.78 L, Nucleated RBC % 0.1, Diff Path Review May foll, Atypical Lymphocytes 1+, Anisocytosis 1+ 09/03/21 03:45: Sodium 135 L, Potassium 3.5, Chloride 99, Carbon Dioxide 30.0, Anion Gap 6, BUN 37 H, Creatinine 2.22 H, Estim Creat Clear Calc 29.95, Est GFR (MDRD) Af Amer 38 L, Est GFR (MDRD) Non-Af 31 L, BUN/Creatinine Ratio 16.7, Glucose 214 H, Calcium 10.4 H Micro: Microbiology 09/01/21 07:37 Sputum, Induced/Lukens Gram Stain - Final 09/01/21 07:37 Sputum, Induced/Lukens Respiratory Culture - Preliminary Staphylococcus aureus 09/02/21 10:10 Stool Stool Occult Blood (REN) - Final 08/31/21 12:30 Blood Culture (Wb) - Anticubital Right Blood Culture - Preli minary No growth in 48 hours. 08/30/21 07:00 Blood Culture (Wb) - Pic Bacteria Detection (PCR) - Final Staphylococcus aureus 08/30/21 07:00 Blood Culture (Wb) - Pic Blood Culture - Preliminary Meth. resistant Staph. aureus 08/30/21 07:25 Blood Culture (Wb) - Anticubital Right Blood Culture - Preliminary Staphylococcus aureus ABG Data ABG results: ABG 08/29/21 08:04 Specimen Type ART Sample Site R Radial pH 7.32 L Bicarbonate Actual 27.3 H Total CO2 29 Base Excess 1 O2 Saturation 87 L O2 % 50 ABG pCO2 52.8 H ABG pO2 58 L Rodrigo Test Positive O2 Delivery Device BiPAP POC PEEP 7 Radiography Diagnostic Testing: Radiology Impression Aorta Iliac Vascular Ultrasound 08/29/21 09:12 Interpretation Summary Abdominal aorta patent, normal caliber with normal velocities Bilateral iliac arteries patent, normal caliber with normal velocities Ordering Physician: Kanu Chan Performed By: Hero, Myke, RVT Chest/Abdomen/Pelvis CT 08/31/21 10:44 IMPRESSION: Dense consolidation in both lower lobes with patchy infiltrates in the lingular segment of the left upper lobe and right middle lobe. Diffuse ascites. Soft tissue density seen in the anterior peritoneal fat in the upper abdomen. Omental metastasis should be ruled out. Electronically Signed: Zackery Kent MD at 12:05 EDT , Rhythm Strip Rhythm Strip: Sinus Tach Rate: 104 Physical Exam Const alert Constitutional Narrative: Chronically ill in appearance. General Appearance: cooperative Orientation / Consciousness: lethargic HEENT normocephalic and head/scalp atraumatic HEENT Narrative: Corpak currently in place. Teeth and [place]: poor dentition Eyes PERRL and EOMs intact bilaterally Neck supple General: trachea midline Chest inspection of chest normal Resp Resp Narrative: + Weak cough Auscultation: rhonchi Cardio regular rate and regular rhythm GI soft to palpation and non-tender Inspection: abdominal distention Extremity General Extremity: edema; Negative for clubbing Skin no rashes or lesions noted Neuro CN's II-XII intact bilaterally and no focal motor deficits Psych Mood & Affect: flat affect Charges/Coding Visit Charges Inpatient E&M: 90890 Subs Hosp L2
[2021-09-03 07:07] VITALS: O2SAT 95
--- NOTE | 2021-09-03 07:30 | PCM.DC.SUM ---
Providers Date of Admission: 08/29/21 Date of Discharge: 09/03/21 Primary Care Physician: Dr. Chasidy Basurto MD Consultations 08/29/21 04:02 Consult: Nephrology Routine Consulting Provider: Marc Aburto Reason for Consult: ESRD EMERGENT Consult: No MD Notified: Yes Date Notified: 08/29/21 Time Notified: 02:31 Method of Notification: Answering Service 08/29/21 09:20 Consult: Vascular Surgery Routine Consulting Provider: Fan Zarate Reason for Consult: AV EMERGENT Consult: No MD Notified: Yes Date Notified: 08/29/21 Time Notified: 09:21 Method of Notification: Verbal 08/29/21 09:21 Consult: Model Maker [employer]aster / Pulmonary Medicine Routine Consulting Provider: Pulmonary Medicine dae Trevorton Reason for Consult: resp distress EMERGENT Consult: No Notified: Yes Date Notified: 08/29/21 Time Notified: 08:59 Method of Notification: Verbal 08/29/21 18:38 Consult: Onc/Wound/coal sampler Routine Comment: Reason for Consult:: Wounds to lumbar area and left hand 08/31/21 06:05 Consult: Infectious Disease Routine Consulting Provider: Dwight Davis Reason for Consult: Septic Shock with MRSA bacteremia EMERGENT Consult: No MD Notified: Yes Date Notified: 08/31/21 Time Notified: 07:33 Method of Notification: Answering Service 08/31/21 15:17 Consult: General Surgery Routine Consulting Provider: Joon Jain Reason for Consult: Line Removal EMERGENT Consult: No Notified: Yes Date Notified: 08/31/21 Time Notified: 15:17 Method of Notification: Verbal Reason For Visit: ACUTE HYPOXEMIC RESPIRATORY FAILURE Diagnosis Discharge Diagnosis (1) Respiratory failure: Status: Acute Code(s): J96.90 - Respiratory failure, unspecified, unspecified whether with hypoxia or hypercapnia Plan 1. Acute on chronic hypoxic respiratory failure-patient is currently on BiPAP at 30%, again the patient is a full code at this time including intubation. Patient was dialyzed again today in an attempt to remove fluid to help his breathing status. #2 septic shock from PICC line infection-MRSA, continue antibiotics per infectious diseases. #3 chronic anemia-secondary to end-stage renal disease and chronic liver disease, hemoglobin is 11.8 today #4 end-stage renal disease on hemodialysis-patient is being seen by nephrology #5 chronic debility secondary to prolonged recent hospitalization in [facility], patient will be seen by PT and OT, he will need to return to nursing home facility at the conclusion of his hospitalization #6 paroxysmal atrial fibrillation-patient is on Eliquis and amiodarone #7 dysphagia-etiology unclear, patient is at high risk for aspiration, speech therapy will see the patient during his hospitalization, continue n.p.o. status and give tube feedings #8 Acute congestive heart failure with preserved ejection fraction-this was probably exacerbated by [facility], patient is echocardiogram shows a normal EF with no significant valvular heart disease. Continue dialysis at this time. #9 acute on chronic anemia-etiology unclear, requiring blood transfusion #10 mild pulmonary hypertension Medications at Discharge Home Medications Therapeutic M 1 tab NG DAILY supplement 08/29/21 albuterol sulfate 0.63 mg/3 mL solution for nebulization 0.63 mg inhalation Q4H PRN Shortness Of Breath 08/29/21 alendronate 70 mg tablet 70 mg PO QWEEK supplement 08/29/21 allopurinol 100 mg tablet 100 mg PO DAILY gout 08/29/21 amiodarone 200 mg tablet 200 mg PO DAILY heart rate 08/29/21 apixaban 5 mg tablet 5 mg PO BID blood thinner 08/29/21 aripiprazole 2 mg tablet 2 mg PO DAILY depression 08/29/21 cetirizine 10 mg tablet 10 mg PO DAILY allergies 08/29/21 cholecalciferol (vitamin D3) 25 mcg (1,000 unit) tablet 25 mcg PO DAILY supplement 08/29/21 darbepoetin ismael in polysorbat 60 mcg/mL in polysorbate injection 60 mcg subcut QWEEK renal failure 08/29/21 entecavir 0.5 mg tablet 0.5 mg PO QWEEK liver failure 08/29/21 lactulose 20 gram/30 mL oral solution 20 g PO BID liver failure 08/29/21 melatonin 3 mg tablet 3 mg PO QHS sleep 08/29/21 metoprolol succinate 25 mg tablet,extended release 24 hr 25 mg PO DAILY heart rate/blood pressure 08/29/21 midodrine 10 mg tablet mg low BP 08/29/21 oxycodone 5 mg capsule 5 mg PO Q6H PRN Pain 08/29/21 pantoprazole 40 mg tablet,delayed release 40 mg PO QHS protonix 08/29/21 sodium chloride 0.65 % nasal spray aerosol ([place] Nasal) 2 spray intranasal Q4H PRN Dry Nasal Passages 08/29/21 tacrolimus 1 mg capsule, immediate-release 1 mg PO Q12H liver failure 08/29/21 timolol maleate 0.5 % once daily eye drops 1 drp EACH EYE DAILY glaucoma 08/29/21 ursodiol 300 mg capsule 300 mg PO TID liver failure 08/29/21 vitamin E 268 mg (400 unit) capsule 268 mg PO DAILY supplement 08/29/21 Hospital Course Operations None and - (Removal of tunneled PICC line) Procedures Blood transfusion and Dialysis Summary of Care Provided Minutes Spent on Discharge: 33 Hospital Course: This 71-year-old white male was seen in the emergency room at [facility] after being brought in from a local [facility] care facility where he resides for rehab services due to shortness of breath over the past several days. Patient wears oxygen at baseline, he has multiple medical problems including end-stage renal disease on dialysis, dysphagia, previous liver transplant, and history of cirrhosis work-up in the emergency room revealed cell count, hemoglobin was low, chemistry profile was abnormal for creatinine of 2.82, BUN of 54, potassium was 3.3. Patient's beta natruretic peptide was 1099. Chest x-ray showed bilateral airspace disease concerning for multifocal infection, patient required BiPAP for oxygenation. It was noted that the [facility] due to [facility]. Patient was admitted to the ICU, initially he was not placed on IV antibiotics but was subsequently started on antibiotics due to concerns of pneumonia. Patient was seen in consultation by intensive care physician as well as nephrology. Patient ultimately required pressors to support his blood pressure, patient's blood cultures returned positive for MRSA and it was felt that the patient's PICC line could be responsible for the infection and he was seen by general surgery and this was removed. Patient was not able to be fed orally due to dysphagia, Dobb[place] feedings were continued. Discussions were carried out with the patient's son about the patient's medical care, he requested that the patient be transferred to [facility] in [place] due to the patient's past history of liver transplant and the fact that his transplant doctors were at the clinic. I put in a phone call to the [facility] in [place] and they were able to accept the patient on 09/03/2021. On 09/03/2021, patient was seen and examined:alert Constitutional Narrative: Patient appears older than stated age, patient has a nasal feeding tube in place General Appearance: cooperative, well kempt and well developed Orientation / Consciousness: awake, oriented to person, oriented to place and oriented to time HEENT normocephalic, head/scalp atraumatic and moist oral mucous membranes Eyes PERRL, EOMs intact bilaterally and conjunctivae normal Neck supple, no JVD and thyroid normal General: trachea midline Resp normal respiratory effort, no retractions, no use of accessory muscles and clear to auscultation bilaterally Auscultation: Negative for rales, rhonchi or wheezes Cardio regular rate, regular rhythm, S1 normal heart sound, S2 normal heart sound, no murmurs, no rub and no gallops GI normal to inspection, nondistended, normoactive bowel sounds, soft to palpation, non-tender and non-distended Extremity no clubbing, cyanosis or edema Extremity Narrative: lower extremity edema is noted bilaterally Skin no rashes or lesions noted General Skin Exam: no breakdown Neuro CN's II-XII intact bilaterally, no focal motor deficits and no sensory deficits noted Sensorium / Orientation: awake and alert Speech: speech normal Psych Patient's affect is flat On 09/03/2021, patient was seen and examined and felt to be in stable condition for transfer to the [facility] in [facility] for further medical care. Weight / BMI Weight Weight: 70.2 kg Body Mass Index (BMI) 24.5 ABG / Lab / Microbiology Data Result Diagrams: 09/03/21 03:45 09/03/21 03:45 Microbiology: Microbiology 09/02/21 11:00 Blood Culture (Wb) - Left Hand Blood Culture - Preliminary No growth in 48 hours. 09/01/21 16:30 Blood Culture (Wb) - Dialysis/Fistula Blood Culture - Preliminary No growth in 48 hours. 08/30/21 07:25 Blood Culture (Wb) - Anticubital Right Blood Culture - Preliminary Staphylococcus aureus 08/30/21 07:00 Blood Culture (Wb) - Pic Bacteria Detection (PCR) - Final Staphylococcus aureus 08/30/21 07:00 Blood Culture (Wb) - Pic Blood Culture - Final Meth. resistant Staph. aureus 09/01/21 07:37 Sputum, Induced/[place] Gram Stain - Final 09/01/21 07:37 Sputum, Induced/[place] Respiratory Culture - Final Meth. resistant Staph. aureus 09/02/21 10:10 Stool Stool Occult Blood (REN) - Final 08/31/21 12:30 Blood Culture (Wb) - Anticubital Right Blood Culture - Preliminary No growth in 48 hours. Meaningful Use Info Meaningful Use Diagnoses (Choose all that apply): CHF CHF MILA/ARB ordered at discharge?: No Reason MILA/ARB not ordered?: Hypotension and Not indicated Documented LVEF (%): 60 Discharge Plan Admission Admit Date/Time: 08/29/21 02:22 Attending Provider: Sinan Armstrong Primary Care Provider: Chasidy Basurto Consulting Providers: Nick Rinaldi ; Kanu Chan ; Partha Gibson ; Isha Carnes NP ; Marc Aburto ; Fan Zarate ; Fede Luciano ; Dwight Davis ; Joon Jain Discharge Orders/Prescriptions Prescriptions: No Action alendronate 70 mg Tablet 70 mg PO QWEEK Rx Instructions: takes on Monday albuterol sulfate 0.63 mg/3 mL Solution For Nebulization 0.63 mg INHALATION Q4H PRN (Reason: Shortness Of Breath) amiodarone 200 mg Tablet 200 mg PO DAILY allopurinol 100 mg Tablet 100 mg PO DAILY apixaban 5 mg Tablet 5 mg PO BID cetirizine 10 mg Tablet 10 mg PO DAILY melatonin 3 mg Tablet 3 mg PO QHS metoprolol succinate 25 mg Tablet Extended Release 24 Hr 25 mg PO DAILY entecavir 0.5 mg Tablet 0.5 mg PO QWEEK aripiprazole 2 mg Tablet 2 mg PO DAILY darbepoetin ismael in polysorbat 60 mcg/mL Solution 60 mcg SUBCUT QWEEK Rx Instructions: takes on Monday cholecalciferol (vitamin D3) 25 mcg (1,000 unit) Tablet 25 mcg PO DAILY lactulose 20 gram/30 mL Solution 20 g PO BID midodrine 10 mg Tablet pantoprazole 40 mg Tablet,Delayed Release (Dr/Ec) 40 mg PO QHS ursodiol 300 mg Capsule 300 mg PO TID oxycodone 5 mg Capsule 5 mg PO Q6H PRN (Reason: Pain) tacrolimus 1 mg Capsule 1 mg PO Q12H vitamin E [Vitamin E-400] 268 mg (400 unit) Capsule 268 mg PO DAILY [place] Nasal 0.65 % Aerosol,[place] 2 spray INTRANASAL Q4H PRN (Reason: Dry Nasal Passages) timolol maleate 0.5 % Drops, Once Daily 1 drp EACH EYE DAILY Therapeutic M 1 tab NG DAILY Referrals / Follow Up: Chasidy Basurto MD [Primary Care Provider] - Disposition Disposition (needs filled in before D/C Order can be placed): Acute Care Hospital Charges/Coding Visit Charges Inpatient E&M: 67297 Disch Hosp
--- NOTE | 2021-09-03 07:50 | NURSING ---
Shelly found locked in bottom med drawer after belongings paper already completed and signed. Shelly given to physicians ambulance seafood team member.
[2021-09-03 12:35] LABS: Pathologist Review Reviewed
[2021-09-03 16:19] LABS: Tacrolimus (FK506) 11.5 ng/mL (2.0-20.0)
== END 2021-09-03 07:45 | disposition short-term general hospital (02) | DRG 314 ==
LOC: ED 08-29 01:12 → PCU 08-29 02:35 → ICU 08-29 10:30
PROVIDERS: Family Medicine; Internal Medicine Critical Care Medicine; Surgery; Admitting Provider Hospitalist; Emergency Provider Emergency Medicine; PCP Internal Medicine; Visit Provider Internal Medicine
PROC: 0JPT0XZ Removal of Tunneled Vascular Access Device from Trunk Subcutaneous Tissue and Fascia, Open Approach (ICD-10-PCS; CPT 36590; principal; 2021-09-01 12:15)
DX: T80.211A Bloodstream infection due to central venous catheter, initial encounter (principal); J96.21 Acute and chronic respiratory failure with hypoxia; A41.02 Sepsis due to Methicillin resistant Staphylococcus aureus; R65.21 Severe sepsis with septic shock; I50.33 Acute on chronic diastolic (congestive) heart failure; N18.6 End stage renal disease; J18.9 Pneumonia, unspecified organism; Z94.4 Liver transplant status; I27.20 Pulmonary hypertension, unspecified; D63.1 Anemia in chronic kidney disease; E11.22 Type 2 diabetes mellitus with diabetic chronic kidney disease; Z99.2 Dependence on renal dialysis; I48.0 Paroxysmal atrial fibrillation; E87.70 Fluid overload, unspecified; F41.9 Anxiety disorder, unspecified; R13.10 Dysphagia, unspecified; B95.62 Methicillin resistant Staphylococcus aureus infection as the cause of diseases classified elsewhere; Z79.01 Long term (current) use of anticoagulants; Z99.81 Dependence on supplemental oxygen; Z79.899 Other long term (current) drug therapy; Z85.05 Personal history of malignant neoplasm of liver; Z87.891 Personal history of nicotine dependence; Z86.19 Personal history of other infectious and parasitic diseases
CPT/HCPCS: 31720; 36415; 36592; 36600; 71045; 71250; 74018; 74176; 80048; 80053; 80076; 80197; 80202; 82140; 82274; 82803; 83605; 83880; 85025; 86850; 86900; 86901; 86920; 86922; 87040; 87070; 87077; 87149; 87186; 87205; 87641; 90937; 92526; 92610; 93005; 93306; 93970; 93971; 93978; 93990; 94002; 94003; 94762; 97162; 97166; 97530; 97535; 97802; 97803; 99285; J2185; J7040; J7050; P9016; P9047; A4216; G0257; J1940